=== PATIENT | female | born 1960 | race Caucasian/White ===

== ENCOUNTER 2016-09-03 02:12 | Observation (INO) | payer BC, OTHER ==
[2016-09-03] MEDS ORDERED: IPRATROPIUM-ALBUTEROL 3 ML NEB INHALATION STA (02:47)
--- NOTE | 2016-09-03 02:50 | ED ---
SOB HPI - General Source: patient, RN notes reviewed Mode of arrival: wheelchair Limitations: no limitations <Marsha Brown - Last Filed: 09/03/16 05:23> <Clarence Bragg - Last Filed: 09/03/16 06:46> - General Chief Complaint: Shortness of Breath Stated Complaint: [place], chest pain Time Seen by Provider: 09/03/16 02:28 - History of Present Illness Initial Comments: Patient is a 55-year-old female presents to the emergency room for evaluation of shortness of breath. Patient states that she just started a new job is very active. Patient states that she is overweight so a lot of activity causes her to become tired easily. Patient states over the past 2 days she notices that she felt very short of breath while walking only a few moments steps. Patient states she's had a productive cough for the past 2 days. Patient states the cough and shortness of breath got worse throughout the day. Patient states she is also having midsternal chest pain that hurts worse when she coughs. Patient denies any cardiac history. Patient states September 2015 [facility] where she received blood work, EKG and stress test and everything came back normal. Patient states the only thing that they notices was a "leaky valve" on the echocardiogram. Patient states she has a history of high blood pressure. Patient states her chest feels tight. Patient denies fevers or chills. Patient denies ear pain. Patient states she has throat pain every time she coughs. Patient's denies nausea or vomiting, abdominal pain, diarrhea or constipation. Patient denies smoking. (Marsha Brown) - Related Data Home Medications Medication Instructions Recorded Confirmed Furosemide [Lasix] 20 mg PO DAILY 03/13/16 09/03/16 Ibuprofen [Motrin] 800 mg PO Q8HR PRN 03/13/16 09/03/16 Losartan [Cozaar] 50 mg PO DAILY 03/13/16 09/03/16 Montelukast [Singulair] 10 mg PO DAILY 03/13/16 09/03/16 Multivitamins, Thera [Multivitamin] 1 tab PO DAILY 03/13/16 09/03/16 Sertraline [Zoloft] 50 mg PO DAILY 03/13/16 09/03/16 Allergies Allergy/AdvReac Type Severity Reaction Status Date / Time pilocarpine HCl Allergy Itching Verified 03/17/16 07:05 [From Salagen] bupivacaine HCl AdvReac Swelling Verified 03/17/16 07:05 [From Marcaine] AFTER INJECTION IN KNEE Review of Systems ROS Other: All systems not noted in ROS Statement are negative. <Marsha Brown - Last Filed: 09/03/16 05:23> ROS Other: All systems not noted in ROS Statement are negative. <Clarence Bragg - Last Filed: 09/03/16 06:46> ROS Statement: Those systems with pertinent positive or pertinent negative responses have been documented in the HPI. Past Medical History Past Medical History: GERD/Reflux, Hearing Disorder / Deafness, Hypertension, Musculoskeletal Disorder, Skin Disorder Additional Past Medical History / Comment(s): STRESS TEST 09/2015 - VALVE HAS SL LEAKAGE. SEASONAL ALLERGY. TINNITUS. SL OA. FOLICULITIS SCALP; ATHLETES'S FOOT; LIPOMA RT UPPER BACK. History of Any Multi-Drug Resistant Organisms: None Reported Past Surgical History: Cholecystectomy, Tonsillectomy Additional Past Surgical History / Comment(s): RT SHOULDER IMPINGEMENT REPAIR, EXC PART CLAVICLE. Past Anesthesia/Blood Transfusion Reactions: No Reported Reaction Past Psychological History: No Psychological Hx Reported Smoking Status: Never smoker Past Alcohol Use History: Rare Past Drug Use History: None Reported - Past Family History Mother Family Medical History: Cancer <Marsha Brown - Last Filed: 09/03/16 05:23> General Exam Limitations: no limitations General appearance: alert, in no apparent distress Head exam: Present: atraumatic, normocephalic, normal inspection Eye exam: Present: normal appearance ENT exam: Present: normal exam Neck exam: Present: normal inspection Respiratory exam: Present: normal lung sounds bilaterally. Absent: respiratory distress Cardiovascular Exam: Present: regular rate, normal rhythm, normal heart sounds Extremities exam: Present: normal inspection Back exam: Present: normal inspection Neurological exam: Present: alert, oriented X3, CN II-XII intact, normal gait Psychiatric exam: Present: normal affect, normal mood Skin exam: Present: warm, dry, intact, normal color. Absent: rash <Marsha Brown - Last Filed: 09/03/16 05:23> <Clarence Bragg - Last Filed: 09/03/16 06:46> - General Exam Comments Initial Comments: Laying in exam room, no acute distress. (Marsha Brown) Medical Decision Making - Lab Data Result diagrams: 09/03/16 02:35 09/03/16 02:35 <Marsha Brown - Last Filed: 09/03/16 05:23> - Lab Data Result diagrams: 09/03/16 02:35 09/03/16 02:35 <Clarence Bragg - Last Filed: 09/03/16 06:46> - Lab Data Lab Results 09/03/16 09/03/16 09/03/16 Range/Units 02:35 02:35 02:35 WBC 9.2 (3.8-10.6) k/uL RBC 4.47 (3.80-5.40) m/uL Hgb 13.1 (11.4-16.0) gm/dL Hct 39.0 (34.0-46.0) % MCV 87.4 (80.0-100.0) fL MCH 29.3 (25.0-35.0) pg MCHC 33.5 (31.0-37.0) g/dL RDW 13.8 (11.5-15.5) % Plt Count 203 (150-450) k/uL Neutrophils % 71 % Lymphocytes % 20 % Monocytes % 5 % Eosinophils % 1 % Basophils % 0 % Neutrophils # 6.6 (1.3-7.7) k/uL Lymphocytes # 1.8 (1.0-4.8) k/uL Monocytes # 0.5 (0-1.0) k/uL Eosinophils # 0.1 (0-0.7) k/uL Basophils # 0.0 (0-0.2) k/uL PT (9.0-12.0) sec INR (<1.1) APTT (22.0-30.0) sec D-Dimer (<0.60) mg/L FEU Sodium 142 (137-145) mmol/L Potassium 3.9 (3.5-5.1) mmol/L Chloride 107 (98-107) mmol/L Carbon Dioxide 27 (22-30) mmol/L Anion Gap 8 mmol/L BUN 18 H (7-17) mg/dL Creatinine 0.70 (0.52-1.04) mg/dL Est GFR (MDRD) Af Amer >60 (>60 ml/min/1.73 sqM) Est GFR (MDRD) Non-Af >60 (>60 ml/min/1.73 sqM) Glucose 104 H (74-99) mg/dL Calcium 9.7 (8.4-10.2) mg/dL Total Bilirubin 0.6 (0.2-1.3) mg/dL AST 26 (14-36) U/L ALT 36 (9-52) U/L Alkaline Phosphatase 71 (38-126) U/L Total Creatine Kinase 192 H (30-135) U/L CK-MB (CK-2) 1.8 (0.0-2.4) ng/mL CK-MB (CK-2) Rel Index 0.9 Troponin I <0.012 (0.000-0.034) ng/mL NT-Pro-B Natriuret Pep pg/mL Total Protein 6.8 (6.3-8.2) g/dL Albumin 3.9 (3.5-5.0) g/dL Influenza Type A RNA (Not Detectd) Influenza Type B (PCR) (Not Detectd) 09/03/16 09/03/16 09/03/16 Range/Units 02:35 02:35 02:35 WBC (3.8-10.6) k/uL RBC (3.80-5.40) m/uL Hgb (11.4-16.0) gm/dL Hct (34.0-46.0) % MCV (80.0-100.0) fL MCH (25.0-35.0) pg MCHC (31.0-37.0) g/dL RDW (11.5-15.5) % Plt Count (150-450) k/uL Neutrophils % % Lymphocytes % % Monocytes % % Eosinophils % % Basophils % % Neutrophils # (1.3-7.7) k/uL Lymphocytes # (1.0-4.8) k/uL Monocytes # (0-1.0) k/uL Eosinophils # (0-0.7) k/uL Basophils # (0-0.2) k/uL PT 10.5 (9.0-12.0) sec INR 1.0 (<1.1) APTT 23.2 (22.0-30.0) sec D-Dimer 0.79 H (<0.60) mg/L FEU Sodium (137-145) mmol/L Potassium (3.5-5.1) mmol/L Chloride (98-107) mmol/L Carbon Dioxide (22-30) mmol/L Anion Gap mmol/L BUN (7-17) mg/dL Creatinine (0.52-1.04) mg/dL Est GFR (MDRD) Af Amer (>60 ml/min/1.73 sqM) Est GFR (MDRD) Non-Af (>60 ml/min/1.73 sqM) Glucose (74-99) mg/dL Calcium (8.4-10.2) mg/dL Total Bilirubin (0.2-1.3) mg/dL AST (14-36) U/L ALT (9-52) U/L Alkaline Phosphatase (38-126) U/L Total Creatine Kinase (30-135) U/L CK-MB (CK-2) (0.0-2.4) ng/mL CK-MB (CK-2) Rel Index Troponin I (0.000-0.034) ng/mL NT-Pro-B Natriuret Pep 96 pg/mL Total Protein (6.3-8.2) g/dL Albumin (3.5-5.0) g/dL Influenza Type A RNA Not Detected (Not Detectd) Influenza Type B (PCR) Not Detected (Not Detectd) Disposition <Marsha Brown - Last Filed: 09/03/16 05:23> <Clarence Bragg - Last Filed: 09/03/16 06:46> Clinical Impression: Chest pain Disposition: ADMITTED IP TO THIS HOSP Condition: Fair Referrals: Dawood Alejandro DO [Primary Care Provider] - 1-2 days
[2016-09-03 02:51] LABS: Basophils % (A) 0 %; CH 29.2; CHCM 33.6; Eosinophils # (A) 0.1 k/uL (0-0.7); Eosinophils % (A) 1 %; HDW 2.67; HGB 13.1 gm/dL (11.4-16.0); Luc # (Auto) 0.18; Luc % (Auto) 2; Lymphocytes # (A) 1.8 k/uL (1.0-4.8); Lymphocytes % (A) 20 %; MCH 29.3 pg (25.0-35.0); MCHC 33.5 g/dL (31.0-37.0); MCV 87.4 fL (80.0-100.0); Mean Platelet Volume 7.1; Monocytes # (A) 0.5 k/uL (0-1.0); Monocytes % (A) 5 %; Neutrophils # (A) 6.6 k/uL (1.3-7.7); Neutrophils % (A) 71 %; RBC 4.47 m/uL (3.80-5.40); RDW 13.8 % (11.5-15.5); WBC 9.2 k/uL (3.8-10.6); WBC (Perox) 9.14
[2016-09-03 03:00] LABS: ALT 36 U/L (9-52); AST 26 U/L (14-36); Alkaline Phosphatase 71 U/L (38-126); Anion Gap 8 mmol/L; Blood Urea Nitrogen 18 mg/dL (7-17); Calcium 9.7 mg/dL (8.4-10.2); Carbon Dioxide 27 mmol/L (22-30); Chloride 107 mmol/L (98-107); Glucose 104 mg/dL (74-99); Non-African American GFR(MDRD) >60 (>60 ml/min/1.73 sqM); Potassium 3.9 mmol/L (3.5-5.1); Sodium 142 mmol/L (137-145); Total Bilirubin 0.6 mg/dL (0.2-1.3); Total Protein 6.8 g/dL (6.3-8.2)
[2016-09-03 03:08] LABS: Partial Thromboplastin Time 23.2 sec (22.0-30.0); Prothrombin Time 10.5 sec (9.0-12.0)
--- NOTE | 2016-09-03 03:09 | XR ---
EXAM: XR Chest, 2 Views. CLINICAL HISTORY: Reason: difficulty breathing TECHNIQUE: Frontal and lateral views of the chest. COMPARISON: No relevant prior studies available. FINDINGS: Lungs: Unremarkable. No consolidation. Pleural spaces: Unremarkable. No pneumothorax. Heart: Borderline cardiomegaly. Mediastinum: Unremarkable. Bones: Mild degenerative changes are present throughout. No acute fracture. Upper abdomen: Upper abdominal clips seen on the lateral view may be from prior cholecystectomy. IMPRESSION: No acute findings.
[2016-09-03 03:16] LABS: Creatine Kinase 192 U/L (30-135)
[2016-09-03 03:30] LABS: Creatine Kinase MB 1.8 ng/mL (0.0-2.4); Troponin I <0.012 ng/mL (0.000-0.034)
[2016-09-03] MEDS ORDERED: RX INFO: IV CONTRAST WAS GIVEN 1 EACH MISC MISCELLANE PRN (03:39)
--- NOTE | 2016-09-03 04:31 | CT ---
EXAM: CT Angiography Chest With Intravenous Contrast. CLINICAL HISTORY: Reason: Pain TECHNIQUE: Axial computed tomographic angiography images of the chest with intravenous contrast using pulmonary embolism protocol. CTDI is 213.9 mGy and DLP is 1317 mGy-cm MIP reconstructed images were created and reviewed. COMPARISON: Earlier chest radiographs of the same evening. FINDINGS: Pulmonary arteries: Unremarkable. No pulmonary embolism. Aorta: No acute findings. No thoracic aortic aneurysm. Lungs: Unremarkable. No mass. No consolidation. Pleural spaces: Unremarkable. No significant effusion. No pneumothorax. Heart: There is borderline cardiomegaly. No significant pericardial effusion. No evidence of RV dysfunction. Mediastinum: A small hiatal hernia is present. Bones: Multilevel degenerative changes are present throughout. No acute fracture. Lymph nodes: Unremarkable. No enlarged lymph nodes. IMPRESSION: No acute findings.
[2016-09-03] MEDS ORDERED: NITROGLYCERIN SL TABS 0.4 MG TAB SUBLINGUAL PRN (06:26)
[2016-09-03] MEDS ORDERED: IBUPROFEN 800 MG TAB PO PRN (06:27)
[2016-09-03 08:49] LABS: Creatine Kinase 164 U/L (30-135)
[2016-09-03 09:00] LABS: Creatine Kinase MB 1.5 ng/mL (0.0-2.4); Troponin I <0.012 ng/mL (0.000-0.034)
[2016-09-03] MEDS ORDERED: FUROSEMIDE 20 MG TAB PO SCH (09:00)
[2016-09-03] MEDS ORDERED: MONTELUKAST 10 MG TAB PO SCH (09:00)
[2016-09-03] MEDS ORDERED: LOSARTAN 50 MG TAB PO SCH (09:00)
[2016-09-03] MEDS ORDERED: SERTRALINE 50 MG TAB PO SCH (09:00)
--- NOTE | 2016-09-03 09:24 | P.CRDCN ---
History of Present Illness Consult date: 09/03/16 Requesting physician: Dawood Alejandro Consult reason: chest pain Chief complaint: Chest pain and shortness of breath History of present illness: This is a 55-year-old female with history of hypertension, morbid obesity, who presents to the hospital with symptoms of shortness of breath progressively worsening over the past couple of days, associated midsternal chest pressure. According to the patient, she initially thought she may have a bronchitis, she's been having a cough, productive, clear sputum. She states that for the past couple of days she has noticed an increase in shortness of breath, she's also felt more tired and weak than usual, she developed an episode of midsternal chest pressure, became concerned and came to the emergency room for further evaluation. According to the patient, the pain worsens with cough. Chest x-ray does not reveal any acute findings. CT of the chest does not reveal any acute findings. Negative for pulmonary embolism. EKG currently unavailable. rebeamer reveals a normal sinus rhythm with no ectopy currently. Laboratory data, WBC 9.2, hemoglobin 13.1, platelet count 203. D-dimer 0.79. Troponins negative 2. BNP level 96, influenza A and B-. Blood pressure on arrival 195/80, heart rate in the 70s, 95% on room air. Blood pressure this morning 155/70. At the time of my examination this morning, patient currently has no chest pain. Mild cough. According to the patient, she states she has seen Dr. Murillo in the office in September of last year had a stress test performed at that time. Patient also underwent a coronary angiogram in 2004 which was reported to be normal. Past Medical History Past Medical History: GERD/Reflux, Hearing Disorder / Deafness, Hypertension, Musculoskeletal Disorder, Skin Disorder Additional Past Medical History / Comment(s): STRESS TEST 09/2015 - VALVE HAS SL LEAKAGE. SEASONAL ALLERGY. TINNITUS. SL OA. FOLICULITIS SCALP; ATHLETES'S FOOT; Sicca auto immune disease-caused dryness throat/esophagus but hasn't been a problem for years, bifid kidney, L knee pain "feels like it wants to give out sometimes", L foot lattened arch and impingement. History of Any Multi-Drug Resistant Organisms: None Reported Past Surgical History: Cholecystectomy, Tonsillectomy Additional Past Surgical History / Comment(s): RT SHOULDER arthroscopy for IMPINGEMENT REPAIR, EXC PART CLAVICLE, lipoma removed from back, cervical lymph gland removal due to abscess. Past Anesthesia/Blood Transfusion Reactions: No Reported Reaction Past Psychological History: No Psychological Hx Reported Additional Psychological History / Comment(s): Pt resides with her spouse and 2 children, one of which is over the age of 18yrs. She is independent. Smoking Status: Never smoker Past Alcohol Use History: Rare Past Drug Use History: None Reported - Past Family History Mother Family Medical History: Cancer Additional Family Medical History / Comment(s): Breast cancer Father Family Medical History: Congestive Heart Failure (CHF), COPD, Osteoarthritis (OA ) Medications and Allergies Home Medications Medication Instructions Recorded Confirmed Type Furosemide [Lasix] 20 mg PO DAILY 03/13/16 09/03/16 History Ibuprofen [Motrin] 800 mg PO Q8HR PRN 03/13/16 09/03/16 History Losartan [Cozaar] 50 mg PO DAILY 03/13/16 09/03/16 History Montelukast [Singulair] 10 mg PO DAILY 03/13/16 09/03/16 History Multivitamins, Thera [Multivitamin] 1 tab PO DAILY 03/13/16 09/03/16 History Sertraline [Zoloft] 50 mg PO DAILY 03/13/16 09/03/16 History Allergies Allergy/AdvReac Type Severity Reaction Status Date / Time pilocarpine HCl Allergy Itching Verified 09/03/16 08:03 [From Salagen] bupivacaine HCl AdvReac Swelling Verified 09/03/16 08:03 [From Marcaine] AFTER INJECTION IN KNEE Physical Exam Vitals: Vital Signs Pulse Resp BP Pulse Ox 09/03/16 06:48 68 18 155/74 97 Intake and Output 09/02/16 09/03/16 09/03/16 22:59 06:59 14:59 Intake Total 20 Balance 20 Intake: Amount of Fluid Infused ( 20 ml) PHYSICAL EXAMINATION: HEENT: Head is atraumatic, normocephalic. Pupils equal, round. Neck is supple. There is no elevated jugular venous pressure. HEART EXAMINATION: Heart S1 and S2 systolic ejection murmur is heard. CHEST EXAMINATION: Lungs are clear to auscultation and precussion. No chest wall tenderness is noted on palpation or with deep breathing. ABDOMEN: Soft, obese, nontender. Bowel sounds are heard. No organomegaly noted. EXTREMITIES: 2+ peripheral pulses with trace evidence of peripheral edema and no calf tenderness noted. NEUROLOGIC patient is awake, alert and oriented -3. . Results 09/03/16 02:35 09/03/16 02:35 Cardiac Enzymes 09/03/16 Range/Units 08:04 CK-MB (CK-2) 1.5 (0.0-2.4) ng/mL Troponin I <0.012 (0.000-0.034) ng/mL Current Medications Generic Name Dose Route Start Last Admin Trade Name Freq PRN Reason Stop Dose Admin Aspirin 325 mg 09/04/16 09:00 Aspirin PO DAILY [facility] Furosemide 20 mg 09/03/16 09:00 Lasix PO DAILY [facility] Ibuprofen 800 mg 09/03/16 06:27 Motrin PO Q8HR PRN Pain Losartan Potassium 50 mg 09/03/16 09:00 Cozaar PO DAILY [facility] Miscellaneous Information 1 each 09/03/16 03:39 09/03/16 03:48 Rx Info: Iv Contrast Was Given MISCELLANE 09/05/16 03:39 1 each DAILY PRN Administration Per Protocol Montelukast Sodium 10 mg 09/03/16 09:00 Singulair PO DAILY [facility] Multivitamins 1 each 09/03/16 12:00 Theragran PO DAILY@1200 [facility] Nitroglycerin 0.4 mg 09/03/16 06:26 Nitrostat SUBLINGUAL Q5M PRN Chest Pain Sertraline HCl 50 mg 09/03/16 09:00 Zoloft PO DAILY [facility] Intake and Output 09/02/16 09/03/16 09/03/16 22:59 06:59 14:59 Intake Total 20 Balance 20 Intake: Amount of Fluid Infused ( 20 ml) EKG Interpretations (text) No EKG available Assessment and Plan Plan: Assessment and plan #1 chest pain, atypical in nature, 2 troponins negative. No EKG available. Cardiac catheterization performed in 2004 normal. Most recent stress test performed in August of last year normal. #2 uncontrolled hypertension #3 morbid obesity Plan We will obtain an echocardiogram with Doppler study. Obtain third troponin value. Obtain EKG. We will also start the patient on Norvasc 5 mg daily for more optimal blood pressure control. Further recommendations to follow. DNP note has been reviewed, I agree with a documented findings and plan of care. Patient was seen and examined.
[2016-09-03] MEDS ORDERED: amLODIPine 5 MG TAB PO SCH (09:30)
[2016-09-03] MEDS ORDERED: DOBUTamine DRIP for NUC MED 500 MG in DEXTROSE/WATER 1 250ML.BAG IV ONE (10:02)
--- NOTE | 2016-09-03 10:04 | P.PN ---
Progress Note - Text EKG performed this morning shows normal sinus rhythm with anterior lateral ST-T wave changes, similar to EKGs performed previously.
[2016-09-03 10:18] VITALS: TEMP 97.5
[2016-09-03] MEDS ORDERED: MULTIVITAMINS, THERA 1 EACH TAB PO SCH (12:00)
--- NOTE | 2016-09-03 12:08 | ECHOS ---
DATE OF SERVICE: 09/03/2016 AGE: 55Y SEX: F HT: 63" WT: 325 lbs. Protocol David: Others: Dobutamine Stress Echo Stage: 3 Dur. of Exercise: 9:00 *Heart Rate Blood Pressure *Rest: ( ) Rest: 138/76 * *Max. Achieved: 145 Maximum BP: 208/38 85% PMHR: 139 100% PMHR: 163 *METS: 10.0 INDICATIONS: Chest pain. MEDICATIONS: Multivitamin, Zoloft, Singulair, Cozaar, Motrin, Lasix. Baseline EKG shows sinus rhythm, normal axis, normal intervals. Patient exercised on David protocol for a total of 9 minutes, achieving 10 METs, 89% of predicted maximal heart rate without chest pain or diagnostic ST-segment depression. Occasional PVCs are noted during the exercise. Baseline echo shows normal left ventricular size, wall motion and systolic function. Post exercise, there is normal hyperdynamic response of all segments of myocardium noted. CONCLUSION: 1. Negative stress test for by EKG criteria. 2. Negative stress echo.
[2016-09-03 13:22] VITALS: BP 154/73; PULSE 96; RESP 18
--- NOTE | 2016-09-03 13:31 | P.HPIM ---
History of Present Illness H&P Date: 09/03/16 Chief Complaint: Chest discomfort This is a medical H&P and discharge summary combined: Patient is a 55-year-old white female with medical history significant for hypertension, GERD, and morbid obesity presenting to the emergency department with complaints of shortness of breath, cough with productive clear sputum, and midsternal chest tightness. Onset of symptoms started 1 day prior to admission. 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 Chest x-ray on admission with no acute findings. Chest CTA with no evidence of pulmonary embolism or lung consolidation. Troponins negative. BNP 96. Patient negative for influenza A and B. Patient did have an elevated blood pressure of 195/80 on admission with blood pressure this morning of 155/70. Patient was admitted to the selective care unit and started on IV heparin will consult requested for cardiology. Patient underwent a dobutamine stress echo and stress test that was negative for ischemia. Patient was started on Norvasc 5 mg during her hospital stay for better control of her blood pressure. Patient was deemed stable for discharge to home with follow-up in the outpatient setting. Past Medical History Past Medical History: GERD/Reflux, Hearing Disorder / Deafness, Hypertension, Musculoskeletal Disorder, Skin Disorder Additional Past Medical History / Comment(s): STRESS TEST 09/2015 - VALVE HAS SL LEAKAGE. SEASONAL ALLERGY. TINNITUS. SL OA. FOLICULITIS SCALP; ATHLETES'S FOOT; Sicca auto immune disease-caused dryness throat/esophagus but hasn't been a problem for years, bifid kidney, L knee pain "feels like it wants to give out sometimes", L foot lattened arch and impingement. History of Any Multi-Drug Resistant Organisms: None Reported Past Surgical History: Cholecystectomy, Tonsillectomy Additional Past Surgical History / Comment(s): RT SHOULDER arthroscopy for IMPINGEMENT REPAIR, EXC PART CLAVICLE, lipoma removed from back, cervical lymph gland removal due to abscess. Past Anesthesia/Blood Transfusion Reactions: No Reported Reaction Past Psychological History: No Psychological Hx Reported Additional Psychological History / Comment(s): Pt resides with her spouse and 2 children, one of which is over the age of 18yrs. She is independent. Smoking Status: Never smoker Past Alcohol Use History: Rare Past Drug Use History: None Reported - Past Family History Mother Family Medical History: Cancer Additional Family Medical History / Comment(s): Breast cancer Father Family Medical History: Congestive Heart Failure (CHF), COPD, Osteoarthritis (OA ) Medications and Allergies Home Medications Medication Instructions Recorded Confirmed Type Furosemide [Lasix] 20 mg PO DAILY 03/13/16 09/03/16 History Ibuprofen [Motrin] 800 mg PO Q8HR PRN 03/13/16 09/03/16 History Losartan [Cozaar] 50 mg PO DAILY 03/13/16 09/03/16 History Montelukast [Singulair] 10 mg PO DAILY 03/13/16 09/03/16 History Multivitamins, Thera [Multivitamin] 1 tab PO DAILY 03/13/16 09/03/16 History Sertraline [Zoloft] 50 mg PO DAILY 03/13/16 09/03/16 History Allergies Allergy/AdvReac Type Severity Reaction Status Date / Time pilocarpine HCl Allergy Itching Verified 09/03/16 08:03 [From Salagen] bupivacaine HCl AdvReac Swelling Verified 09/03/16 08:03 [From Marcaine] AFTER INJECTION IN KNEE Physical Exam Vitals: Vital Signs Temp Pulse Pulse Resp BP BP Pulse Ox 09/03/16 08:15 97.5 F L 67 20 111/55 97 09/03/16 06:48 68 18 155/74 97 Intake and Output 09/02/16 09/03/16 09/03/16 22:59 06:59 14:59 Intake Total 20 Balance 20 Intake: Amount of Fluid Infused ( 20 ml) GENERAL: Pt awake and alert, well-appearing, well-nourished, and in no acute distress. HEAD: Atraumatic, normocephalic. EYES: Pupils equal, round, and reactive to light, extraocular movements intact, sclera anicteric, conjunctiva are normal. ENT: Oropharynx clear without exudates. Moist mucous membranes. NECK:Normal range of motion, supple without lymphadenopathy or JVD. LUNGS: Breath sounds clear to auscultation bilaterally. No wheezes, rales, or rhonchi. Right-sided chest tender on palpation. HEART: Heart S1, S2, no S3 or S4. Regular rate and rhythm. No murmurs, rubs or gallops. ABDOMEN: Soft, morbidly obese, nontender, nondistended, normoactive bowel sounds. No guarding, no rebound. No masses or organomegaly appreciated. EXTREMITIES: 2+ peripheral pulses. No edema, clubbing or cyanosis. No calf tenderness. NEUROLOGICAL: Pt oriented x 3. Cranial nerves II through XII grossly intact. Strength and sensation grossly intact. PSYCH: Normal mood, normal affect. SKIN: Warm, dry, intact. Normal turgor. No rashes or lesions. Results CBC & Chem 7: 09/03/16 02:35 09/03/16 02:35 Labs: Abnormal Lab Results - Last 24 Hours (Table) 09/03/16 Range/Units 08:04 Total Creatine Kinase 164 H (30-135) U/L Chest x-ray: report reviewed CT scan - chest: report reviewed Thrombosis Risk Factor Assmnt - DVT/VTE Prophylaxis DVT/VTE Prophylaxis: Pharmacologic Prophylaxis ordered - Choose All That Apply Any of the Below Risk Factors Present?: Yes Each Factor Represents 1 point: Age 41-60 years, Obesity (BMI >25) Other Risk Factors: No Other congenital or acquired thrombophilia - If yes, enter type in comment: No Thrombosis Risk Factor Assessment Total Risk Factor Score: 2 Thrombosis Risk Factor Assessment Level: Low Risk Assessment and Plan Plan: Impression: 1. Chest discomfort, present on admission, suspect secondary to costochondritis. Cardiac workup negative. 2. Hypertensive urgency, present on admission, resolved. 3. GERD. 4. History of hypertension. 5. Cough and congestion, present on arrival, suspect secondary to upper respiratory infection, viral. 6. Depression, stable. Plan: Cardiology has seen and evaluated patient. Cardiac workup negative including dobutamine stress test. Norvasc was added for better blood pressure control. All medications have been reviewed and resumed as appropriate. Motrin was added for pain control. Patient is deemed stable for discharge with close follow-up in the outpatient setting. Discharge diagnoses: 1. Chest discomfort, present on admission, suspect secondary to costochondritis. 2. Hypertensive urgency, present on admission, resolved. 3. GERD. 4. Hypertension. 5. Cough and congestion, present on arrival, suspect secondary to upper respiratory infection, viral. 6. Depression, stable. The above impression and plan have been discussed and directed by Dr. Alejandro. Tricia ELIZABETH acting as scribe for Dr. Alejandro.
[2016-09-04] MEDS ORDERED: ASPIRIN 325 MG TAB PO SCH (09:00)
--- NOTE | 2016-09-08 16:04 | ECHOF ---
Referral Reason:chest pain MEASUREMENTS -------- HEIGHT: 160.0 cm WEIGHT: 147.4 kg BP: IVSd: 1.0 cm (0.6 - 1.1) LVIDd: 4.4 cm (3.9 - 5.3) LVPWd: 1.4 cm (0.6 - 1.1) IVSs: 1.7 cm LVIDs: 2.6 cm LVPWs: 2.0 cm Ao Diam: 3.4 cm (2.0 - 3.7) AV Cusp: 2.3 cm (1.5 - 2.6) LA Diam: 3.6 cm (2.7 - 3.8) MV EXCURSION: 16.009 mm (> 18.000) MV EF SLOPE: 41 mm/s (70 - 150) EPSS: 0.4 cm MV E Casey: 0.94 m/s MV DecT: 142 ms MV A Casey: 1.01 m/s MV E/A Ratio: 0.93 RAP: 5.00 mmHg RVSP: 10.41 mmHg FINDINGS -------- Sinus rhythm. This was a technically adequate study. There is mild concentric left ventricular hypertrophy. Overall left ventricular systolic function is normal with, an EF between 55 - 60 %. The right ventricle is normal in size and function. The left atrium is normal in size. The right atrium is normal in size. The aortic valve is trileaflet, and appears structurally normal. No aortic stenosis or regurgitation. The mitral valve leaflets are mildly thickened. Mild mitral regurgitation is present. Mild tricuspid regurgitation present. The right ventricular systolic pressure, as measured by Doppler, is 10.41mmHg. Pulmonic valve appears structurally normal. The aortic root size is normal. The pericardium is normal. CONCLUSIONS -------- 1. Sinus rhythm. 2. Mild mitral regurgitation is present. 3. Mild tricuspid regurgitation present. 4. The right ventricular systolic pressure, as measured by Doppler, is 10.41mmHg. 5. Pulmonic valve appears structurally normal. 6. The aortic root size is normal. 7. The pericardium is normal. 8. This was a technically adequate study. 9. There is mild concentric left ventricular hypertrophy. 10. Overall left ventricular systolic function is normal with, an EF between 55 - 60 %. 11. The right ventricle is normal in size and function. 12. The left atrium is normal in size. 13. The right atrium is normal in size. 14. The aortic valve is trileaflet, and appears structurally normal. No aortic stenosis or regurgitation. 15. The mitral valve leaflets are mildly thickened. COMBINE OPERATOR: Sasha King RDCS
== END 2016-09-03 14:03 | disposition home or self-care (01) ==
LOC: EC 02:12 → 6SEL 06:26
PROVIDERS: ADMIT Family Medicine; ATTEND Family Medicine
DX: R07.89 Other chest pain (principal); I16.0 Hypertensive urgency; I10 Essential (primary) hypertension; K21.9 Gastro-esophageal reflux disease without esophagitis; R05 Cough; R06.02 Shortness of breath; R06.00 Dyspnea, unspecified; R09.89 Other specified symptoms and signs involving the circulatory and respiratory systems; F32.9 Major depressive disorder, single episode, unspecified; Z68.43 Body mass index [BMI] 50.0-59.9, adult; E66.01 Morbid (severe) obesity due to excess calories; Z79.899 Other long term (current) drug therapy; Z88.8 Allergy status to other drugs, medicaments and biological substances; Z88.4 Allergy status to anesthetic agent; H91.90 Unspecified hearing loss, unspecified ear; J30.2 Other seasonal allergic rhinitis; Z80.3 Family history of malignant neoplasm of breast; Z82.5 Family history of asthma and other chronic lower respiratory diseases; Z82.49 Family history of ischemic heart disease and other diseases of the circulatory system
CPT/HCPCS: 99285; 36415; 94640; 93005; 93017; 93306; 93350; 85379; 83880; 80053; 82550; 82553; 84484; 85025; 85610; 85730; 87502; 71020; 71275; G0378; J1250; Q9967

== ENCOUNTER 2018-01-11 12:43 | Observation (INO) | payer BC ==
[2018-01-05 08:36] VITALS: BMI 55.4
[~2018-01-11 12:43] MED LIST: ONDANSETRON 4 MG/2 ML VIAL IVP ONE; Pre Op ABX Message 1 EACH MISC MISCELLANE ONE
[2018-01-11] MEDS ORDERED: MIDAZOLAM 2 MG/2 ML VIAL ONE ×2 (13:45→14:31)
[2018-01-11] MEDS: LACTATED RINGERS 1,000 ML IV SCH ×2 (13:47→22:51)
[2018-01-11] MEDS ORDERED: LIDOCAINE 1% 20 ML VIAL (10MG/ML) FOR IV START INTRADERMA ONE (13:48)
[2018-01-11] MEDS ORDERED: SUCCINYLCHOLINE CHLORIDE VIAL 200 MG/10 ML VIAL IV ONE (14:31)
[2018-01-11] MEDS ORDERED: NEOSTIGMINE 1 MG/ML 10 ML VIAL ONE (14:31)
[2018-01-11] MEDS ORDERED: ROCURONIUM BROMIDE 10 MG/ML 10 ML VIAL IV ONE (14:31)
[2018-01-11] MEDS ORDERED: PHENYLEPHRINE-0.9% NACL SYG 1 MG/10 ML SYRINGE ONE (14:31)
[2018-01-11] MEDS ORDERED: HYDROmorphone (PF) 1 MG/ML ONE (14:31)
[2018-01-11] MEDS ORDERED: LIDOCAINE 1% INJ 10MG/ML (20 ML MDV) ONE (14:31)
[2018-01-11] MEDS ORDERED: PROPOFOL 10 MG/ML 20 ML VIAL IV ONE (14:31)
[2018-01-11] MEDS ORDERED: ROPIVACAINE 5 MG/ML 30 ML VIAL ONE (14:31)
[2018-01-11] MEDS ORDERED: ePHEDrine SULFATE/0.9% NACL/PF 50 MG/5 ML SYRINGE IV ONE (14:31)
[2018-01-11] MEDS ORDERED: GLYCOPYRROLATE 0.2 MG/ML 2 ML VIAL ONE (14:31)
[2018-01-11] MEDS ORDERED: fentaNYL (PF) 50 MCG/ML 2 ML AMP ONE (14:31)
[2018-01-11] MEDS ORDERED: ceFAZolin 1,000 MG VIAL IVPB ONE (14:50)
[2018-01-11] MEDS ORDERED: LACTATED RINGERS 1,000 ML IV ONE ×3 (15:30→19:03)
[2018-01-11] MEDS ORDERED: BISACODYL 10 MG SUPP RECTAL PRN (18:25)
[2018-01-11] MEDS ORDERED: HYDROmorphone 0.5 MG/0.5 ML SYRINGE IVP PRN (18:25)
[2018-01-11] MEDS ORDERED: NALOXONE 0.4 MG/ML 1 ML VIAL IV PRN (18:25)
[2018-01-11] MEDS ORDERED: ONDANSETRON 4 MG/2 ML VIAL IVP PRN (18:25)
[2018-01-11] MEDS ORDERED: HYDROcodone/APAP 5-325MG 1 EACH TAB PO PRN (18:25)
[2018-01-11] MEDS ORDERED: MAGNESIUM HYDROXIDE 2,400 MG/10 ML CUP PO PRN (18:25)
--- NOTE | 2018-01-11 18:44 | P.OP ---
Date of Procedure: 01/11/18 Preoperative Diagnosis: 1. 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 Achilles tendon contracture 3. BMI of 55.4 Postoperative Diagnosis: Same Procedure(s) Performed: 1. Right triple arthrodesis 2. Right percutaneous tendo Achilles lengthening Anesthesia: ABIOLA, regional Surgeon: Kyaw Dietz Estimated Blood Loss (ml): 150 IV fluids (ml): 1,700 Pathology: none sent Condition: stable Disposition: PACU Indications for Procedure: The patient is a 57-year-old female with a medical history significant for extreme morbid obesity with a BMI of 55.4 who presented to my office with an adult acquired flat foot deformity. She was initially managed nonsurgically with activity modification, orthotics, anti-inflammatories, bracing, and therapy but continued to have symptoms and requested surgery. Clinically she had a significant flatfoot deformity and symptomatically arthritis in the calcaneocuboid joint. Due to her weight and age I recommended a triple arthrodesis. We discussed that most deformities can be corrected now with a double arthrodesis but due to the symptomatic nature of the arthritis in her calcaneocuboid joint I recommended incorporating this into the fusion mass. I also recommended performing a percutaneous tendo Achilles lengthening to help correct her deformity. We discussed the potential risks and complications of surgery including but not limited to risk of anesthesia, risk of superficial infection, risk of deep infection, risk of delayed wound healing, risk of superficial wound necrosis, risk of deep wound necrosis, risk of damage to local blood vessels or nerves, risk of nonunion of the fusion site, risk of malunion of the fusion site, risk of under correction of deformity, risk of overcorrection of the deformity, risk of symptomatically hardware, risk of need for further surgery, risk of chronic pain, risk of chronic swelling, risk of generalized to satisfaction surgery, risk of need for orthotic, risk of need for race, risk of DVT, risk of PE, and possibly loss of life or limb. The patient voiced that while these are the most common complications other complications are possible. The patient also voiced and acknowledged her increased risk of having a complication due to her BMI 55.4. She provided her verbal and written consent to go forward with surgery. Operative Findings: The patient's BMI of 55.4 resulted in increased complexity of the case due to difficulty in positioning the leg for proper imaging and placement of hardware as well as resulting in a venous tourniquet. Description of Procedure: The patient was identified in preoperative holding and the correct right leg was marked with my initials. I reviewed the consent form with the patient and all of her questions were answered. The patient was then given a popliteal and saphenous nerve block by anesthesia. She was brought to the operating room and a general anesthetic and preoperative antibiotics were administered on a standard or table. A tourniquet was applied to the proximal aspect of the right leg. Her left leg was secured to the table with foam and tape. The right leg was then prepped and draped in the standard sterile fashion. Prior to starting surgery timeout was performed identifying the correct patient, operative extremity, and procedure. The leg was then elevated, exsanguinated with an Esmarch bandage, and the tourniquet was inflated to 300 mmHg. I began by performing a triple hemisection tendo Achilles lengthening. Stab incisions were made a 2 cm intervals above the Achilles insertion. The first incision was made and the medial half of the Achilles tendon was sharply released. A second stab incision was made 2 cm proximal to this and the lateral half of the Achilles tendon was sharply released. A third incision was made 2 cm proximal to this and the medial half of the Achilles tendon was sharply released. A gentle dorsiflexion force was applied to the ankle and there is a palpable and audible pop and an increase in dorsiflexion. The Achilles tendon was still palpably intact. I then outlined incisions with a skin marker for a medial and lateral approach to the hindfoot. The lateral incision was marked out from the tip of the fibula distally in line with the fourth toe. The medial incision was marked out from the tip of the medial malleolus to the medial cuneiform centered directly over the medial column. The skin incision was made laterally with a 15 blade scalpel and dissection was carried carefully through the subcutaneous tissue. The fascia over the EDB was incised and the origin of the EDB was sharply elevated off of the anterior process of the calcaneus. The peroneal tendons were identified and retracted plantarly. The joint capsule over the subtalar joint and calcaneocuboid joint were then opened. K wires were placed a distractor was used to gain access to both the subtalar and calcaneocuboid joint. Using a combination of osteotomes and curettes all of the remaining articular cartilage was removed from the posterior and middle facet of the subtalar joint. The wound was copiously irrigated and all remaining cartilage was debrided. A 2.0 mm drill bit was used to perforate the subchondral bone to facilitate fusion. A Sunil was used for contour a large osteophyte off of the anterior process of the calcaneus at the calcaneal cuboid joint. The calcaneocuboid joint appeared markedly arthritic. The articular cartilage was removed and then the exposed subchondral bone was perforated with a 2.0 mm drill bit. The lateral portion the talonavicular joint was also exposed and articular cartilage was removed. Attention was then directed medial. Skin incision was made a 15 blade scalpel. Dissection was carried down carefully through subcu tissues tissue with tenotomy scissors. The interval between the anterior tibial tendon and posterior tibial tendon was identified. The capsule of the talonavicular joint was opened. K wires were placed and a distractor was used to gain access to the medial two thirds the talonavicular joint. Using a curved osteotome and curette all of the cartilage from the talonavicular joint was sharply removed. The exposed bone was perforated with a 2.0 mm drill bit to help facilitate fusion. At this point all of the joints were exposed and all of the cartilage had been removed. A mixture of crushed cancellus allograft and augment was used help with the fusion mass. All 3 joints were packed with this mixture. Once all the joints were prepared and packed with bone graft and augment the position of the joints were held in a reduced position and held with K wires. I placed the heel in neutral and placed K wires for cannulated 7.0 screws through the plantar aspect of the heel up into the talar body and neck. The more medial screw was placed at the head neck junction and the more lateral screw was placed into the talar body. The position of the K wires was checked with a lateral view of the heel, and axial heel view, and a mortise view of the ankle to make sure that the screws were within bone and extra-articular at the level of the ankle. The K wires were overdrilled with a cannulated drill bit up to the level of the joint and a countersink was used. Partially threaded 7.0 mm screws were then placed both getting an excellent bite and generating compression across the subtalar joint. Attention was then turned to the talonavicular joint. The talonavicular joint was held in a reduced position and a K wire was placed from the navicular tuberosity up into the talar body. A drill bit was used to drill over the navicular up to the joint but not across it. A countersink was used. A partially threaded 5.5 mm cannulated screw was placed across the talonavicular joint getting excellent compression. A second 4.5 mm screw was placed as a derotation screw. Attention was then turned to the calcaneocuboid joint. A claw plate was placed directly over the joint with 2 screws holes in the anterior process the calcaneus and 2 screws in the cuboid. 3.5 mm locking screws were placed. The compression device was placed and gentle compression was applied across the joint. At this point I clinically evaluated the foot. The heel appeared to be in neutral. There was mild supination of the forefoot but not enough that I felt it needed a plantarflexion osteotomy or fusion of the first ray. The position of the joints and hardware was then verified with fluoroscopy and felt to be adequate in all views. The wounds were then carefully irrigated to prevent washing away any of the augment substance. The fascial deep layer was closed with a running 0 Vicryl over both wounds. The deep subcu was reapproximated using 2-0 Vicryl. The skin was closed with 3-0 nylon horizontal mattress stitches. The stab incisions over the heel were closed with 3-0 nylon. I verified that all instrument, sponge, and sharp counts were correct. The tourniquet was let down for total tourniquet time of 120 minutes. A sterile dressing consisting of Betadine Adaptic, 4 x 4, and web roll was applied. The drapes were taken down and well-padded bulky Harrison splint was placed with the ankle at neutral. The patient was then awoken from her anesthetic, transferred from the or table to a gurney, and brought to PACU having found the procedure well. Plan: The patient is going to be admitted overnight for IV antibiotics, pain control, and an internal medicine consult. She'll need physical therapy for gait training. She'll be treated with DVT prophylaxis on Lovenox while in- house he'll be discharged home on aspirin. The patient can discharge home when her pain is controlled and she passes physical therapy.
[2018-01-11] MEDS: HYDROmorphone 0.5 MG/0.5 ML SYRINGE IVP PRN ×5 (18:45→22:51)
[2018-01-11] MEDS: SENNOSIDES-DOCUSATE SODIUM 1 EACH TAB PO SCH (22:54)
[2018-01-12] MEDS: HYDROmorphone 0.5 MG/0.5 ML SYRINGE IVP PRN ×4 (01:47→17:32)
[2018-01-12] MEDS: LACTATED RINGERS 1,000 ML IV SCH ×4 (04:39→19:50)
[2018-01-12] MEDS: HYDROcodone/APAP 5-325MG 1 EACH TAB PO PRN ×2 (05:41→11:40)
[2018-01-12 07:10] LABS: Basophils % (A) 0 %; Eosinophils # (A) 0.1 k/uL (0-0.7); Eosinophils % (A) 1 %; HCT 34.2 % (34.0-46.0); HGB 11.3 gm/dL (11.4-16.0); Lymphocytes # (A) 1.3 k/uL (1.0-4.8); Lymphocytes % (A) 10 %; MCH 29.3 pg (25.0-35.0); MCV 88.8 fL (80.0-100.0); Mean Platelet Volume 6.8; Monocytes # (A) 0.7 k/uL (0-1.0); Monocytes % (A) 6 %; Neutrophils # (A) 10.3 k/uL (1.3-7.7); Neutrophils % (A) 82 %; Platelet Count 233 k/uL (150-450); RBC 3.85 m/uL (3.80-5.40); RDW 13.8 % (11.5-15.5); WBC 12.6 k/uL (3.8-10.6)
--- NOTE | 2018-01-12 08:01 | FL ---
Fluoroscopy HISTORY: Ankle fusion 1 minute 14 seconds fluoroscopy time supplied to the referring clinician. 5 intraoperative C-arm muriel ges document the procedure. See dictated report from orthopedic surgery.
--- NOTE | 2018-01-12 08:09 | XR ---
Limited right ankle HISTORY: Subtalar fusion 5 intraoperative C-arm images document the procedure.
[2018-01-12] MEDS: ENOXAPARIN 40 MG/0.4 ML SYRINGE SQ SCH (09:20)
[2018-01-12] MEDS ORDERED: HYDROcodone/APAP 7.5-325MG 1 EACH TAB PO PRN (16:52)
--- NOTE | 2018-01-12 16:52 | P.PN ---
Subjective Progress Note Date: 01/12/18 Principal diagnosis: S/P 1. Right triple arthrodesis, 2. Right percutaneous tendo Achilles lengthening Patient is seen at bedside this morning. She is postop day #1 from Right foot triple arthrodesis and Right percutaneous tendo Achilles lengthening. She has pain at the surgical site as expected but denies any new complaints. She denies numbness, tingling or calf pain. Review of systems is negative for fever , chills, chest pain, shortness of breath or other. Objective - Vital Signs Vital signs: Vital Signs Temp 98.3 F 01/12/18 11:26 Pulse 83 01/12/18 11:26 Resp 20 01/12/18 11:26 BP 122/66 01/12/18 11:26 Pulse Ox 94 L 01/12/18 11:26 Intake & Output 01/11/18 01/12/18 01/12/18 18:59 06:59 18:59 Intake Total 1900 1080 900 Output Total 814 569 5849 Balance 1400 980 -375 Intake: IV 1900 500 Intake, IV Titration 700 Amount Lactated Ringers 1,000 ml 700 @ 0 mls/hr IV .[employer] Rx#:[id number] Oral 580 200 Output: Urine 546 640 1401 Estimated Blood Loss 150 Other: Voiding Method Indwelling Catheter - Exam Inspection reveals well padded splint intact at the right lower extremity. There is no evidence of active bleeding or drainage. Neurovascular status is intact throughout the lower extremity with motor and sensation fully intact. Left Calf is soft and nontender. 2+ dorsalis pedis pulse and less than 2 second cap refill is present on Left. Less than 2 sec cap refill on right in all digits. She is able to wiggle all toes. - Constitutional General appearance: Present: no acute distress - Psychiatric Psychiatric: Present: A&O x's 3, appropriate affect, intact judgment & insight - Labs CBC & Chem 7: 01/12/18 06:44 Labs: Abnormal Lab Results - Last 24 Hours (Table) 01/12/18 01/12/18 Range/Units 06:44 06:44 WBC 12.6 H (3.8-10.6) k/uL Hgb 11.3 L (11.4-16.0) gm/dL Neutrophils # 10.3 H (1.3-7.7) k/uL Vitamin D 25-Hydroxy 18.3 L (30.0-100.0) ng/mL Assessment and Plan (1) Flat foot [pes planus] (acquired), right foot Narrative/Plan: She will continue with routine postop orthopedic protocol including pain management, wound care, physical therapy, DVT prophylaxis and medical management. Expect that she will discharge to home tomorrow. Current Visit: Yes Status: Acute Priority: Medium Code(s): M21.41 - FLAT FOOT [PES PLANUS] (ACQUIRED), RIGHT FOOT SNOMED Code(s): 92602585 Time with Patient: Less than 30
[2018-01-12] MEDS: HYDROcodone/APAP 7.5-325MG 1 EACH TAB PO PRN (17:30)
[2018-01-12] MEDS: SENNOSIDES-DOCUSATE SODIUM 1 EACH TAB PO SCH (19:44)
[2018-01-12] MEDS: FLUTICASONE 50MCG/SPRAY NASAL 16GM EA NOSTRIL PRN (22:11)
[2018-01-12] MEDS ORDERED: HYDROcodone/APAP 5-325MG 1 EACH TAB ONE (23:30)
[2018-01-13] MEDS: HYDROcodone/APAP 7.5-325MG 1 EACH TAB PO PRN ×2 (06:47→12:21)
[2018-01-13] MEDS ORDERED: MONTELUKAST 10 MG TAB PO SCH (09:00)
[2018-01-13] MEDS: ENOXAPARIN 40 MG/0.4 ML SYRINGE SQ SCH (09:34)
[2018-01-13] MEDS: FLUTICASONE 50MCG/SPRAY NASAL 16GM EA NOSTRIL PRN (09:38)
[2018-01-13 09:53] VITALS: RESP 20
[2018-01-13 13:12] VITALS: BP 151/88; PULSE 83; TEMP 98.1
--- NOTE | 2018-01-13 13:56 | P.DS ---
Providers Date of admission: 01/12/18 02:00 Expected date of discharge: 01/13/18 Attending physician: Kyaw Dietz Primary care physician: Dawood Alejandro - Discharge Diagnosis(es) (1) Flat foot [pes planus] (acquired), right foot Patient was admitted to the OR on 01/11/2018 to undergo a Right triple arthrodesis and Right percutaneous tendo Achilles lengthening. She had failed conservative measures as an outpatient and desired to proceed with elective surgery after given informed consent. She underwent the above procedure which she tolerated well without complication. Postoperative hospital course has remained without complication. On day of discharge she is afebrile, vital signs stable, labs within acceptable ranges, tolerating by mouth meds and diet, voiding without difficulty, positive flatus, denies abdominal pain or calf pain , pain is controlled on oral pain medication and has no new complaints. Wound is benign, neurovascular status is intact, calf is soft and nontender, abdomen soft and nontender. Review of systems is negative for numbness, tingling, fever , chills, chest pain, shortness breath, nausea, vomiting, dizziness, headaches, slurred speech or other. Current Visit: Yes Status: Acute Priority: Medium Procedures: 1. Right triple arthrodesis 2. Right percutaneous tendo Achilles lengthening Patient Condition at Discharge: Good Plan - Discharge Summary Discharge Rx Participant: No New Discharge Prescriptions: New Aspirin 325 mg PO BID #60 tab Docusate [Colace] 100 mg PO BID #60 capsule HYDROcodone/APAP 7.5-325MG [[place] 7.5-325] 1 - 2 tab PO Q6HR PRN #56 tab PRN Reason: Pain No Action Multivitamins, Thera [Multivitamin (formulary)] 1 tab PO DAILY Sertraline [Zoloft] 50 mg PO DAILY Montelukast [Singulair] 10 mg PO DAILY Losartan [Cozaar] 50 mg PO DAILY Furosemide [Lasix] 20 mg PO DAILY Ciclopirox Olamine Cream [Ciclodan] 1 applic TOPICAL BID Celecoxib [CeleBREX] 200 mg PO DAILY Discharge Medication List Furosemide [Lasix] 20 mg PO DAILY 03/13/16 [History] Losartan [Cozaar] 50 mg PO DAILY 03/13/16 [History] Montelukast [Singulair] 10 mg PO DAILY 09/15/16 [History] Multivitamins, Thera [Multivitamin (formulary)] 1 tab PO DAILY 03/13/16 [History ] Sertraline [Zoloft] 50 mg PO DAILY 03/13/16 [History] Celecoxib [CeleBREX] 200 mg PO DAILY 12/24/17 [History] Ciclopirox Olamine Cream [Ciclodan] 1 applic TOPICAL BID 12/24/17 [History] Aspirin 325 mg PO BID #60 tab 01/13/18 [Rx] Docusate [Colace] 100 mg PO BID #60 capsule 01/13/18 [Rx] HYDROcodone/APAP 7.5-325MG [[place] 7.5-325] 1 - 2 tab PO Q6HR PRN #56 tab [Rx] Follow up Appointment(s)/Referral(s): Kyaw Dietz MD [Medical Doctor] - 2 Weeks Activity/Diet/Wound Care/Special Instructions: Non weightbearing elevate extremity Take meds as directed F/U with Dr. Dietz Maintain splint. Keep clean and dry Discharge Disposition: HOME SELF-CARE
== END 2018-01-13 14:55 | disposition home or self-care (01) ==
LOC: OR 12:43 → 6PED 18:01 → OR 01-12 02:00
PROVIDERS: ADMIT Orthopaedic Surgery; ATTEND Orthopaedic Surgery
DX: M21.41 Flat foot [pes planus] (acquired), right foot (principal); M67.01 Short Achilles tendon (acquired), right ankle; Z68.43 Body mass index [BMI] 50.0-59.9, adult; E66.01 Morbid (severe) obesity due to excess calories; M19.071 Primary osteoarthritis, right ankle and foot; J45.909 Unspecified asthma, uncomplicated; K21.9 Gastro-esophageal reflux disease without esophagitis; Z79.899 Other long term (current) drug therapy; M25.871 Other specified joint disorders, right ankle and foot; Z90.49 Acquired absence of other specified parts of digestive tract; F32.9 Major depressive disorder, single episode, unspecified; Z79.51 Long term (current) use of inhaled steroids; I10 Essential (primary) hypertension; Z88.4 Allergy status to anesthetic agent; H91.90 Unspecified hearing loss, unspecified ear
CPT/HCPCS: 28715; 27685; 97162; 85025; 82306; 73600; G0378 ×2; C1713 ×2; C1762; J2250; J0330; J2710; J0690 ×3; J2405; J2001; J1650 ×2; J3010; J1170 ×3; J2795; J2370; J2704

== ENCOUNTER → 2018-03-18 | Outpatient (CLI) | payer OTHER ==
--- NOTE | 2018-03-18 17:56 | XR ---
EXAMINATION TYPE: XR foot complete RT DATE OF EXAM: 03/18/2018 COMPARISON: NONE HISTORY: Foot pain TECHNIQUE: 3 views FINDINGS: Metatarsals appear intact. There are plates and screws fixating the hindfoot. There is a uribe btalar fusion. There is soft tissue swelling of the forefoot. I see no fracture. There is narrowing a nd spurring at the first MP joint. IMPRESSION: Posterior foot fusion surgery. Soft tissue swelling. No acute bony abnormality.
--- NOTE | 2018-03-18 17:57 | XR ---
EXAMINATION TYPE: XR ankle complete RT DATE OF EXAM: 03/18/2018 COMPARISON: NONE HISTORY: Ankle pain TECHNIQUE: 3 views FINDINGS: There is soft tissue swelling around the ankle joint. Ankle mortise is anatomic. There is h indfoot fusion surgery. There is a moderate plantar calcaneal spur. IMPRESSION: Soft tissue swelling. Previous surgery. No fracture seen. 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
--- NOTE | 2018-03-18 17:58 | XR ---
EXAMINATION TYPE: XR tibia fibula RT DATE OF EXAM: 03/18/2018 COMPARISON: NONE HISTORY: Pain TECHNIQUE: 2 views FINDINGS: Tibia and fibula appear intact. I see no fracture nor dislocation. There is some spurring o f the patella. IMPRESSION: No acute abnormality of the right tibia and fibula.
== END | disposition home or self-care (01) ==
LOC: RADXRMAIN 16:24
PROVIDERS: ATTEND Emergency Medicine
DX: M25.571 Pain in right ankle and joints of right foot (principal); M79.671 Pain in right foot; S93.401D Sprain of unspecified ligament of right ankle, subsequent encounter

== ENCOUNTER 2018-05-19 12:21 | Observation (INO) | payer BC, OTHER ==
--- NOTE | 2018-05-19 14:04 | ED ---
General Adult HPI - General Chief complaint: Nausea/Vomiting/Diarrhea Stated complaint: Vomiting Time Seen by Provider: 05/19/18 14:03 Source: patient Mode of arrival: wheelchair Limitations: no limitations - History of Present Illness Initial comments: This is a 57-year-old female with past medical history of hypertension and arthritis presented today for chief complaint of nausea and vomiting since 9 AM. Patient states that since this morning she has had nothing by mouth due to consistent nausea and vomiting. Patient states that she has diffuse upper abdominal pain mostly left upper quadrant, denies lower abdominal pain. Patient denies any hematemesis, melena or hematochezia. Patient denies any chest pain or shortness of breath. Patient denies sick contacts or recent travel. Pt does admit to chills prior to vomiting, and softer stool this AM denies liquidy diarrhea, fever, nightsweats, headache, body aches. Remainder of ROS (-). - Related Data Home Medications Medication Instructions Recorded Confirmed Furosemide [Lasix] 20 mg PO DAILY 03/13/16 05/19/18 Losartan [Cozaar] 50 mg PO DAILY 03/13/16 05/19/18 Montelukast [Singulair] 10 mg PO DAILY 03/13/16 05/19/18 Sertraline [Zoloft] 50 mg PO DAILY 03/13/16 05/19/18 Chlorpheniramine Maleate 4 mg PO Q4H PRN 05/19/18 05/19/18 [Chlor-Trimeton] Nauzene 2 - 4 tab PO Q15M PRN 05/19/18 05/19/18 Previous Rx's Medication Instructions Recorded HYDROcodone/APAP 7.5-325MG [[place] 1 - 2 tab PO Q6HR PRN #56 tab 01/13/18 7.5-325] Allergies Allergy/AdvReac Type Severity Reaction Status Date / Time pilocarpine HCl Allergy Itching Verified 05/19/18 14:08 [From [place]] bupivacaine HCl AdvReac Swelling Verified 05/19/18 14:08 [From Marcaine] AFTER INJECTION IN KNEE Review of Systems ROS Statement: Those systems with pertinent positive or pertinent negative responses have been documented in the HPI. ROS Other: All systems not noted in ROS Statement are negative. Constitutional: Denies: fever, chills ENT: Denies: ear pain, throat pain Respiratory: Denies: cough, dyspnea, wheezes, hemoptysis, stridor Cardiovascular: Denies: chest pain, palpitations Endocrine: Denies: fatigue Gastrointestinal: Reports: abdominal pain, nausea, vomiting. Denies: diarrhea, constipation, hematemesis, melena, hematochezia Genitourinary: Denies: urgency, dysuria, frequency, hematuria Musculoskeletal: Denies: back pain Skin: Denies: rash, lesions Neurological: Denies: headache, weakness, numbness, paresthesias, confusion Past Medical History Past Medical History: GERD/Reflux, Hearing Disorder / Deafness, Hypertension, Musculoskeletal Disorder, Skin Disorder Additional Past Medical History / Comment(s): STRESS TEST 09/2015 - VALVE HAS SL LEAKAGE. SEASONAL ALLERGY. TINNITUS. SL OA. FOLICULITIS SCALP; ATHLETES'S FOOT; LIPOMA RT UPPER BACK. Pt states that she has been cleared from cardio and that it was just a misread image that led to the stress test. History of Any Multi-Drug Resistant Organisms: None Reported Past Surgical History: Cholecystectomy, Tonsillectomy Additional Past Surgical History / Comment(s): RT SHOULDER IMPINGEMENT REPAIR, EXC PART CLAVICLE. right ankle fusion Past Anesthesia/Blood Transfusion Reactions: No Reported Reaction Past Psychological History: No Psychological Hx Reported Smoking Status: Never smoker Past Alcohol Use History: Rare Past Drug Use History: None Reported - Past Family History Mother Family Medical History: Cancer Additional Family Medical History / Comment(s): Breast cancer Father Family Medical History: Congestive Heart Failure (CHF), COPD, Osteoarthritis (OA ) General Exam - General Exam Comments Initial Comments: General: The patient is awake and alert, in no distress, and does not appear acutely ill. Morbidly obese Eye: Pupils are equal, round and reactive to light, extra-ocular movements are intact. No nystagmus. There is normal conjunctiva bilaterally. No signs of icterus. Ears, nose, mouth and throat: There are moist mucous membranes and no oral lesions. Neck: The neck is supple, there is no tenderness or JVD. Cardiovascular: There is a regular rate and rhythm. No murmur, rub or gallop is appreciated. Respiratory: Lungs are clear to auscultation, respirations are non-labored, breath sounds are equal. No wheezes, stridor, rales, or rhonchi. Gastrointestinal: No noted diaphoresis, jaundice, pallor, protecting postures or squirming. Symmetrical pigmentation of abdomen without signs of inflammation, scars, or striae. Umbilicus mildline, inverted without swelling. No dilated veins. Abdomen contour morbidly obese, no noted abdominal distention. No visible masses. No peristalsis, aortic pulsations, or ventral hernia. Bowel sounds audible in all 4 quadrants, unremarkable. No friction rubs or venous hums. No epigastic, hepatic or abdominal bruits. No tenderness to light or deep palpation of the lower abdomen, mild epigastric and LUQ discomfort. Liver edge, not palpable. Spleen edge, right and left kidney not palpable. Superior bladder margin non-tender. Special Testing: Negative [place], Rov[place], McBurney, [place], cutaneous hyperesthesia. Iliopsoas and obturator tests negative bilaterally. Negative Heel Jar test/ david sign. No CVA tenderness. Digital rectal exam deferred. Negative jackson turners or cullens sign Musculoskeletal: Normal ROM, no tenderness. Strength 5/5. Sensation intact. Pulses equal bilaterally 2+. Neurological: A&O x 3. CN II-XII intact, There are no obvious motor or sensory deficits. Coordination appears grossly intact. Speech is normal. Skin: Skin is warm and dry and no rashes or lesions are noted. Psychiatric: Cooperative, appropriate mood & affect, normal judgment. Limitations: no limitations Course Vital Signs 05/19/18 05/19/18 12:35 16:23 Temperature 97.9 F Pulse Rate 75 75 Respiratory 18 20 Rate Blood Pressure 150/81 161/85 O2 Sat by Pulse 100 100 Oximetry EKG Findings - EKG Comments: EKG Findings:: A 12-lead EKG was performed and shows the following: Rate is 74bpm, and rhythm is normal sinus. There are normal QRS complexes and normal R- wave progression. ST segments have no elevation or depression, and AR segments appear normal. Vent rate 74 per minute, AR 180 ms, QRS duration 100 ms, QT/QTC 390/420 ms. Medical Decision Making - Medical Decision Making His laboratory values are remarkable, mildly elevated white blood cell count. Abdominal exam revealed LUQ and epigastric discomfort, no RUQ or lower abdominal pain, no rigidity or guarding. No peritoneal irritation signs. UA revealed ketones, no other abnormalities. EKG within acceptable limits. No specific findings, CXR (-). CT abdomen pelvis (-). At this time there no clinical findings concerning for acute abdominal process. I feel pt nausea and vomiting is most likely due to a gastritis/enteritis. However pt unable to tolerate PO intake, pt will be admitted for mgmt of nausea and vomiting as well as fluid hydration. Pt and agreeable with admission. Case discussed with Dr. Harrison who spoke to Dr. Asif who accepted admission to observation. Pt resumed on home medications, given zofran PRN and protonix daily. Pt transferred to floor in stable condition. - Lab Data Result diagrams: 05/19/18 14:40 05/19/18 14:40 Lab Results 05/19/18 05/19/18 05/19/18 Range/Units 14:40 14:40 14:40 WBC 11.4 H (3.8-10.6) k/uL RBC 4.74 (3.80-5.40) m/uL Hgb 13.2 (11.4-16.0) gm/dL Hct 40.7 (34.0-46.0) % MCV 85.9 (80.0-100.0) fL MCH 27.8 (25.0-35.0) pg MCHC 32.4 (31.0-37.0) g/dL RDW 14.1 (11.5-15.5) % Plt Count 287 (150-450) k/uL Neutrophils % 88 % Lymphocytes % 9 % Monocytes % 2 % Eosinophils % 1 % Basophils % 0 % Neutrophils # 9.9 H (1.3-7.7) k/uL Lymphocytes # 1.0 (1.0-4.8) k/uL Monocytes # 0.3 (0-1.0) k/uL Eosinophils # 0.1 (0-0.7) k/uL Basophils # 0.0 (0-0.2) k/uL Sodium 140 (137-145) mmol/L Potassium 4.4 (3.5-5.1) mmol/L Chloride 103 (98-107) mmol/L Carbon Dioxide 26 (22-30) mmol/L Anion Gap 11 mmol/L BUN 17 (7-17) mg/dL Creatinine 0.63 (0.52-1.04) mg/dL Est GFR (CKD-EPI)AfAm >90 (>60 ml/min/1.73 sqM) Est GFR (CKD-EPI)NonAf >90 (>60 ml/min/1.73 sqM) Glucose 145 H (74-99) mg/dL Calcium 9.6 (8.4-10.2) mg/dL Total Bilirubin 0.7 (0.2-1.3) mg/dL AST 27 (14-36) U/L ALT 20 (9-52) U/L Alkaline Phosphatase 96 (38-126) U/L Total Creatine Kinase 100 (30-135) U/L CK-MB (CK-2) 1.6 (0.0-2.4) ng/mL CK-MB (CK-2) Rel Index 1.6 Troponin I <0.012 (0.000-0.034) ng/mL Total Protein 7.7 (6.3-8.2) g/dL Albumin 4.2 (3.5-5.0) g/dL Amylase 39 (30-110) U/L Lipase 71 (23-300) U/L Urine Color Urine Appearance (Clear) Urine pH (5.0-8.0) Ur Specific [place] (1.001-1.035) Urine Protein (Negative) Urine Glucose (UA) (Negative) Urine Ketones (Negative) Urine Blood (Negative) Urine Nitrite (Negative) Urine Bilirubin (Negative) Urine Urobilinogen (<2.0) mg/dL Ur Leukocyte Esterase (Negative) 05/19/18 Range/Units 16:54 WBC (3.8-10.6) k/uL RBC (3.80-5.40) m/uL Hgb (11.4-16.0) gm/dL Hct (34.0-46.0) % MCV (80.0-100.0) fL MCH (25.0-35.0) pg MCHC (31.0-37.0) g/dL RDW (11.5-15.5) % Plt Count (150-450) k/uL Neutrophils % % Lymphocytes % % Monocytes % % Eosinophils % % Basophils % % Neutrophils # (1.3-7.7) k/uL Lymphocytes # (1.0-4.8) k/uL Monocytes # (0-1.0) k/uL Eosinophils # (0-0.7) k/uL Basophils # (0-0.2) k/uL Sodium (137-145) mmol/L Potassium (3.5-5.1) mmol/L Chloride (98-107) mmol/L Carbon Dioxide (22-30) mmol/L Anion Gap mmol/L BUN (7-17) mg/dL Creatinine (0.52-1.04) mg/dL Est GFR (CKD-EPI)AfAm (>60 ml/min/1.73 sqM) Est GFR (CKD-EPI)NonAf (>60 ml/min/1.73 sqM) Glucose (74-99) mg/dL Calcium (8.4-10.2) mg/dL Total Bilirubin (0.2-1.3) mg/dL AST (14-36) U/L ALT (9-52) U/L Alkaline Phosphatase (38-126) U/L Total Creatine Kinase (30-135) U/L CK-MB (CK-2) (0.0-2.4) ng/mL CK-MB (CK-2) Rel Index Troponin I (0.000-0.034) ng/mL Total Protein (6.3-8.2) g/dL Albumin (3.5-5.0) g/dL Amylase (30-110) U/L Lipase (23-300) U/L Urine Color Yellow Urine Appearance Clear (Clear) Urine pH 6.5 (5.0-8.0) Ur Specific [place] 1.016 (1.001-1.035) Urine Protein Negative (Negative) Urine Glucose (UA) Negative (Negative) Urine Ketones 1+ H (Negative) Urine Blood Negative (Negative) Urine Nitrite Negative (Negative) Urine Bilirubin Negative (Negative) Urine Urobilinogen <2.0 (<2.0) mg/dL Ur Leukocyte Esterase Negative (Negative) Disposition Clinical Impression: Nausea and vomiting Disposition: ADMITTED IP TO THIS [facility] Condition: Stable Is patient prescribed a controlled substance at d/c from ED?: No Referrals: Dawood Alejandro DO [Primary Care Provider] - 1-2 days Time of Disposition: 18:21 Decision to Admit Reason: Admit from EC Decision Date: 05/19/18 Decision Time: 18:21
[2018-05-19] MEDS ORDERED: ONDANSETRON 4 MG/2 ML VIAL IVP STA ×3 (14:24→17:59)
[2018-05-19 15:05] LABS: Basophils % (A) 0 %; Eosinophils # (A) 0.1 k/uL (0-0.7); Eosinophils % (A) 1 %; HCT 40.7 % (34.0-46.0); HGB 13.2 gm/dL (11.4-16.0); Lymphocytes % (A) 9 %; MCH 27.8 pg (25.0-35.0); MCHC 32.4 g/dL (31.0-37.0); MCV 85.9 fL (80.0-100.0); Mean Platelet Volume 6.6; Monocytes # (A) 0.3 k/uL (0-1.0); Monocytes % (A) 2 %; Neutrophils # (A) 9.9 k/uL (1.3-7.7); Neutrophils % (A) 88 %; Platelet Count 287 k/uL (150-450); RBC 4.74 m/uL (3.80-5.40); RDW 14.1 % (11.5-15.5); WBC 11.4 k/uL (3.8-10.6)
[2018-05-19 15:17] LABS: ALT 20 U/L (9-52); AST 27 U/L (14-36); Albumin 4.2 g/dL (3.5-5.0); Alkaline Phosphatase 96 U/L (38-126); Amylase 39 U/L (30-110); Anion Gap 11 mmol/L; Blood Urea Nitrogen 17 mg/dL (7-17); Calcium 9.6 mg/dL (8.4-10.2); Carbon Dioxide 26 mmol/L (22-30); Chloride 103 mmol/L (98-107); Glucose 145 mg/dL (74-99); Lipase 71 U/L (23-300); Potassium 4.4 mmol/L (3.5-5.1); Sodium 140 mmol/L (137-145); Total Bilirubin 0.7 mg/dL (0.2-1.3); Total Protein 7.7 g/dL (6.3-8.2)
[2018-05-19 15:20] LABS: Creatine Kinase 100 U/L (30-135)
--- NOTE | 2018-05-19 15:23 | XR ---
EXAMINATION TYPE: XR chest 2V DATE OF EXAM: 05/19/2018 COMPARISON: 09/03/2016 HISTORY: 57 year-old female epigastric pain with nausea and vomiting TECHNIQUE: PA and lateral views FINDINGS: Heart borderline enlarged. Diffuse interstitial prominence is unchanged. No consolidation or pleural effusion. IMPRESSION: Borderline heart size. Chronic changes, possible bronchitis or asthma. No focal infiltrate seen.
[2018-05-19 15:32] LABS: Creatine Kinase MB 1.6 ng/mL (0.0-2.4); Troponin I <0.012 ng/mL (0.000-0.034)
[2018-05-19 17:26] LABS: Appearance,Urine Clear (Clear); Bilirubin,Urine Negative (Negative); Blood,Urine Negative (Negative); Color,Urine Yellow; Glucose,Urine (UA) Negative (Negative); Ketones,Urine 1+ (Negative); Leukocyte Esterase,Urine Negative (Negative); Nitrite,Urine Negative (Negative); PH, Urine 6.5 (5.0-8.0); Protein,Urine Negative (Negative); Specific Gravity,Urine 1.016 (1.001-1.035); Urobilinogen,Urine <2.0 mg/dL (<2.0)
[2018-05-19] MEDS ORDERED: SODIUM CHLORIDE 0.9% 1,000 ML IV ONE (17:33)
--- NOTE | 2018-05-19 17:42 | CT ---
EXAMINATION TYPE: CT abdomen pelvis w con DATE OF EXAM: 05/19/2018 COMPARISON: None HISTORY: Upper Abdominal pain with nausea and vomiting today CT DLP: 2641.9 mGycm Automated exposure control for dose reduction was used. TECHNIQUE: Helical acquisition of images was performed from the lung bases through the pelvis. CONTRAST: Performed without Oral Contrast and with IV Contrast, patient injected with 100 mL of Isovue 300. FINDINGS: There is mild subsegmental atelectasis at the lung bases. Heart appears slightly enlarged. There is n o pleural effusion. There is hiatal hernia. The remainder of the stomach appears normal. There are cl ips from cholecystectomy. Liver shows no focal defect. Spleen appears normal. There is no pancreatic mass. There is no adrenal mass. There is 4 cm cortical cyst anterior left kidney. There is no hydronephrosi s. There is no retroperitoneal adenopathy. There are multiple sigmoid diverticula. There is no eviden ce of diverticulitis. Bladder distends smoothly. There is no inguinal hernia. There is no free fluid in the pelvis. Appendix is not clearly seen. There is no sign of appendicitis. The lumbar vertebra ap pear intact. There is no compression fracture. There are spondylotic changes in the lumbar spine. The re is multilevel facet arthropathy. I see no bony destructive process. IMPRESSION: SIGMOID DIVERTICULOSIS WITHOUT DIVERTICULITIS. SMALL HIATAL HERNIA. I DO NOT SEE A DEFINITE REASON FO R UPPER ABDOMINAL PAIN.
[2018-05-19] MEDS ORDERED: PANTOPRAZOLE 40 MG/10 ML VIAL IVP STA (18:08)
[2018-05-19] MEDS ORDERED: NALOXONE 0.4 MG/ML 1 ML VIAL IV PRN (18:08)
[2018-05-19] MEDS ORDERED: ONDANSETRON 4 MG/2 ML VIAL IVP PRN (18:08)
[2018-05-19] MEDS ORDERED: HYDROcodone/APAP 7.5-325MG 1 EACH TAB PO PRN (18:20)
[2018-05-19] MEDS: SODIUM CHLORIDE 0.9% 1,000 ML IV SCH (19:43)
[2018-05-19] MEDS: METOCLOPRAMIDE 5 MG/ML 2 ML VIAL IVP PRN (20:16)
[2018-05-19] MEDS: SUCRALFATE 1 GM TAB PO SCH (21:58)
--- NOTE | 2018-05-19 22:08 | HP ---
HISTORY AND PHYSICAL I am covering for Dr. capone. CHIEF COMPLAINTS: Nausea, vomiting and diarrhea. HISTORY OF PRESENT ILLNESS: This 57-year-old woman with past history of GERD, hypertension, DJD, had significant pain last night. The patient apparently took two Motrins and today this morning the patient started vomiting at 9 o'clock and unable to keep anything down and the patient came to [facility] and was admitted to the hospital for further evaluation and treatment. There is no history of fever, rigors. No history of headache, loss of consciousness, seizures at this time. PAST MEDICAL HISTORY: History of GERD, history of hypertension, history of degenerative joint disease. History of previous stress test. MEDICATIONS ARE: 1. Zoloft 50 mg p.o. daily. 3. Montelukast that is Singular 10 mg p.o. daily. 4. Cozaar 50 mg. 5. [place] 7.5 q.6h p.r.n. 6. Lasix 20 mg p.o. daily. 7. 4 mg p.o. q.4h p.r.n. ALLERGIES: PILOCARPINE . FAMILY HISTORY: History of breast cancer in the family. SOCIAL HISTORY: No history of smoking. Occasional alcohol intake. REVIEW OF SYSTEMS: ENT: No diminished vision. No diminished hearing. CARDIOVASCULAR: No angina or palpitations. RESPIRATORY: No cough or hemoptysis. GI as mentioned earlier. no dysuria. Nervous system: No numbness or weakness. ALLERGY: No asthma or hayfever. MUSCULOSKELETAL as mentioned earlier. HEMATOLOGY/ONCOLOGY: No history of anemia. ENDOCRINE: No history of diabetes or hypothyroidism. CONSTITUTIONAL: As mentioned earlier. Dermatology: Negative. Rheumatology: Negative. Psychiatry: As mentioned earlier. PHYSICAL EXAM: Patient is alert, oriented x3. Pulse 75, blood pressure 161/85, respiration 20, temperature 98.8. Pulse ox 100 percent on room air. HEENT: Conjunctivae normal. Oral mucosa moist. Neck is no jugular venous distention. No carotid bruit. No lymph node enlargement. CARDIOVASCULAR: S1, S2 muffled. RESPIRATORY: Breath sounds diminished in the bases. No rhonchi. No crackles. ABDOMEN: Soft. Mild diffuse discomfort on palpation. No mass palpable. No guarding. No rigidity. LEGS: No edema, no swelling. NERVOUS SYSTEM: Higher functions as mentioned earlier. Moves all four extremities. No focal deficits. Lymphatics: No lymph nodes palpable in the neck, axillae or groin. SKIN: No ulcer, rash or bleeding. LABS: WBC 7.5, hemoglobin 13.2. Glucose [address] scan of the abdomen and pelvis which was reviewed showed sigmoid diverticulosis without any diverticulitis. ASSESSMENT: 1. Nausea, vomiting, possible acute gastritis. 2. History of gastroesophageal reflux disease. 3. Hypertension. 4. Degenerative joint disease. 5. History of stress test. 6. History of seasonal allergies. 7. Cholecystectomy. RECOMMENDATIONS AND DISCUSSION: In this 57-year-old woman who presented with multiple complex medical issues, we will monitor the patient closely. Continue the current medications, management and symptomatic treatment. I would recommend to keep the patient n.p.o. except medications and continue to monitor. IV fluids. Otherwise, we will follow the patient closely and repeat labs will be done. Prognosis guarded because of multiple complex medical issues. Further recommendations to follow. I would also recommend cardiac workup as well. MMROBINSONL / IJN: [id number] / SHAHEED
[2018-05-20] MEDS: METOCLOPRAMIDE 5 MG/ML 2 ML VIAL IVP PRN (02:06)
[2018-05-20 04:05] LABS: Amphetamine Screen,Urine Not Detected (NotDetected); Barbiturate Screen,Urine Not Detected (NotDetected); Benzodiazepines Screen,Urine Not Detected (NotDetected); Cocaine Screen,Urine Not Detected (NotDetected); Methadone Screen, Urine Not Detected (NotDetected); Opiate Screen,Urine Not Detected (NotDetected); Oxycodone Screen, Urine Not Detected (NotDetected); Phencyclidine Screen,Urine Not Detected (NotDetected); Tricyclic Antidepressant,Urine Not Detected (NotDetected); Urn Cannabinoid Scrn Not Detected (NotDetected)
[2018-05-20] MEDS: SERTRALINE 50 MG TAB PO SCH (07:53)
[2018-05-20] MEDS: MONTELUKAST 10 MG TAB PO SCH (07:53)
[2018-05-20] MEDS: SUCRALFATE 1 GM TAB PO SCH ×4 (07:53→20:52)
[2018-05-20] MEDS: PANTOPRAZOLE 40 MG/10 ML VIAL IVP SCH ×2 (07:53→20:53)
[2018-05-20] MEDS: LOSARTAN 50 MG TAB PO SCH (07:53)
[2018-05-20] MEDS: FUROSEMIDE 20 MG TAB PO SCH (07:54)
[2018-05-20] MEDS: SODIUM CHLORIDE 0.9% 1,000 ML IV SCH ×2 (08:04→20:52)
[2018-05-20] MEDS ORDERED: PANTOPRAZOLE 40 MG/10 ML VIAL IV SCH (09:00)
[2018-05-20] MEDS ORDERED: SERTRALINE 50 MG TAB PO SCH (09:00)
[2018-05-20 09:39] LABS: Anion Gap 9 mmol/L; Blood Urea Nitrogen 15 mg/dL (7-17); Calcium 9.1 mg/dL (8.4-10.2); Carbon Dioxide 27 mmol/L (22-30); Chloride 106 mmol/L (98-107); Glucose 103 mg/dL (74-99); Potassium 4.1 mmol/L (3.5-5.1); Sodium 142 mmol/L (137-145)
[2018-05-20 09:41] LABS: Basophils % (A) 0 %; Eosinophils # (A) 0.1 k/uL (0-0.7); Eosinophils % (A) 0 %; HCT 36.5 % (34.0-46.0); HGB 11.7 gm/dL (11.4-16.0); Lymphocytes % (A) 8 %; MCH 27.6 pg (25.0-35.0); MCHC 32.1 g/dL (31.0-37.0); MCV 85.8 fL (80.0-100.0); Mean Platelet Volume 7.3; Monocytes # (A) 0.7 k/uL (0-1.0); Monocytes % (A) 6 %; Neutrophils # (A) 10.6 k/uL (1.3-7.7); Neutrophils % (A) 85 %; Platelet Count 242 k/uL (150-450); RBC 4.25 m/uL (3.80-5.40); RDW 14.3 % (11.5-15.5); WBC 12.5 k/uL (3.8-10.6)
[2018-05-20] MEDS: ASPIRIN 81 MG PO SCH (16:33)
--- NOTE | 2018-05-21 00:33 | PN ---
PROGRESS NOTE I am covering for Dr. Alejandro. DATE OF SERVICE: 05/20/2018 This 57-year-old woman with a past history of multiple medical problems being followed by Dr. Alejandro in the outpatient setting, admitted with features of acute gastritis. No chest pain. No palpitations. No fever. Patient has had some nausea this morning also. EXAM: Alert and oriented. Pulse 67, blood pressure 140/70, respiration 18, temperature 98 degrees, pulse ox 98% on room air. HEENT: Conjunctivae normal. Oral mucosa. NECK: No jugular venous distention. No lymph node enlargement. CARDIOVASCULAR: S1, S2. RESPIRATORY: Diminished breath sounds at the bases. Bilateral scattered rhonchi and crackles. ABDOMEN: Soft, nontender. LEGS: No swelling. NERVOUS SYSTEM: No focal deficits. LABS: WBC 12.5, troponin 0.049 and 0.043. EKG, ST-T changes. ASSESSMENT: 1. Epigastric pain, possible acute gastritis. 2. Elevated troponin, indeterminate of unknown significance for coronary disease. 3. GERD. 4. Hypertension. 5. History of DJD. 6. History of stress test. 7. History of seasonal allergies. 8. History of cholecystectomy. RECOMMENDATIONS: Recommend to continue current management and treatment. Start the diet and advanced slowly. Continue the proton pump inhibitors and also obtain a Cardiology evaluation. Prognosis guarded because of multiple complex medical issues. Further recommendations to follow. MMODL / IJN: [id number] /
[2018-05-21] MEDS: SUCRALFATE 1 GM TAB PO SCH ×4 (08:36→20:59)
[2018-05-21] MEDS: SERTRALINE 50 MG TAB PO SCH (08:36)
[2018-05-21] MEDS: FUROSEMIDE 20 MG TAB PO SCH (08:37)
[2018-05-21] MEDS: PANTOPRAZOLE 40 MG/10 ML VIAL IVP SCH ×2 (08:37→20:59)
[2018-05-21] MEDS: LOSARTAN 50 MG TAB PO SCH (08:37)
[2018-05-21] MEDS: ASPIRIN 81 MG PO SCH (08:37)
[2018-05-21] MEDS: MONTELUKAST 10 MG TAB PO SCH (08:37)
--- NOTE | 2018-05-21 08:51 | CONS ---
CONSULTATION Mrs. Li is a 57-year-old female with known history of hypertension who presented with symptoms of nausea and vomiting since yesterday. Cardiology consultation was requested because of mild troponin elevation. The patient has history of gastroesophageal reflux disease and has been having nausea and vomiting and some discomfort with the nausea and vomiting. She otherwise feels well. She is ambulating without difficulty on a regular basis. She has no chest discomfort. She has underwent foot surgery. In August of 2016, she was admitted to the hospital with symptoms of chest discomfort and underwent a dobutamine stress echocardiogram that was normal and her left ventricular systolic function was normal. The patient has no prior documented history of obstructive coronary artery disease. She has no clear PND nor orthopnea. No peripheral edema. No syncope. Her coronary risk factors are remarkable for the history of hypertension, she is a nonsmoker, nondiabetic current. MEDICATIONS: Her medications include Cozaar 50 mg daily, Lasix 20 mg daily, [place], Singulair 10 mg daily, Zoloft. REVIEW OF SYSTEMS: RESPIRATORY SYSTEM: She has no documented history of recent wheezing or cough. GI SYSTEM: She has nausea and vomiting and hiatal hernia. SYSTEM: No dysuria or hematuria. NERVOUS SYSTEM: No stroke or seizure. PAST SURGICAL HISTORY: Past surgical history is remarkable for the fact she underwent surgery on her foot in December of this year by Dr. Dietz. PHYSICAL EXAMINATION: She is a 57-year-old female, alert, oriented, in no apparent distress. Blood pressure 144/70 with the heart rate in the 60s. HEAD: Normocephalic. EYES: Sclerae anicteric. NECK: Good carotid upstroke. No bruit. No jugular venous distention. LUNGS: Clear to auscultation. HEART: Regular rate and rhythm. S1, S2. No S3. No S4. With a systolic murmur. ABDOMEN: Soft, obese, nontender. EXTREMITIES: No edema. Intact distal pulses. LAB DATA: Lab data revealed initial troponin 0.012. Subsequent troponin 0.049. Her EKG revealed a sinus mechanism, normal axis and intervals with nonspecific ST-T wave changes. Similar findings were noted on the EKG she had in August of last year. IMPRESSION: 1. Nausea and vomiting, probably gastritis. Workup in progress. 2. Mild troponin elevation of unclear etiology. Patient has no symptoms to suggest active ischemic event. 3. History of hypertension. RECOMMENDATION: I will obtain echocardiogram with Doppler. I will add to her regimen a low-dose aspirin. I will obtain subsequent troponin to see the trend and depending on that, further recommendation will be made. I have discussed with the patient those findings. Thank you for this consult. We will follow with you. MMODL / IJN: [id number] /
[2018-05-21 09:03] LABS: Basophils % (A) 0 %; Eosinophils # (A) 0.1 k/uL (0-0.7); Eosinophils % (A) 1 %; HCT 36.2 % (34.0-46.0); HGB 11.9 gm/dL (11.4-16.0); Lymphocytes # (A) 1.6 k/uL (1.0-4.8); Lymphocytes % (A) 21 %; MCH 28.7 pg (25.0-35.0); MCHC 32.7 g/dL (31.0-37.0); MCV 87.7 fL (80.0-100.0); Mean Platelet Volume 6.5; Monocytes # (A) 0.5 k/uL (0-1.0); Monocytes % (A) 7 %; Neutrophils # (A) 5.4 k/uL (1.3-7.7); Neutrophils % (A) 69 %; Platelet Count 220 k/uL (150-450); RBC 4.13 m/uL (3.80-5.40); RDW 14.5 % (11.5-15.5); WBC 7.7 k/uL (3.8-10.6)
[2018-05-21 09:15] LABS: Anion Gap 6 mmol/L; Blood Urea Nitrogen 15 mg/dL (7-17); Carbon Dioxide 30 mmol/L (22-30); Chloride 106 mmol/L (98-107); Glucose 93 mg/dL (74-99); Sodium 142 mmol/L (137-145)
[2018-05-21] MEDS: SODIUM CHLORIDE 0.9% 1,000 ML IV SCH (10:08)
[2018-05-21] MEDS ORDERED: SODIUM CHLORIDE 0.9% 1,000 ML in EMPTY BAG 1 BAG IV ONE (11:48)
[2018-05-21] MEDS ORDERED: ALPRAZolam 0.25 MG TAB PO PRN (11:48)
[2018-05-21] MEDS ORDERED: ALPRAZolam 0.5 MG TAB PO PRN (11:48)
[2018-05-21] MEDS ORDERED: ASPIRIN 325 MG TAB PO STA (11:48)
[2018-05-21] MEDS ORDERED: ATORVASTATIN 80 MG TAB PO STA (11:48)
[2018-05-21] MEDS ORDERED: NITROGLYCERIN SL TABS 0.4 MG TAB SUBLINGUAL PRN (11:48)
[2018-05-21] MEDS ORDERED: MIDAZOLAM 2 MG/2 ML VIAL ONE ×2 (13:42→14:15)
[2018-05-21] MEDS ORDERED: fentaNYL (PF) 50 MCG/ML 2 ML AMP ONE (13:42)
[2018-05-21] MEDS ORDERED: VERAPAMIL 2.5 MG/ML 2 ML AMP ONE (13:42)
[2018-05-21] MEDS ORDERED: fentaNYL (PF) 50 MCG/ML 2 ML AMP IVP ONE (13:46)
[2018-05-21] MEDS ORDERED: MIDAZOLAM 2 MG/2 ML VIAL IVP ONE ×3 (13:47→14:17)
[2018-05-21] MEDS ORDERED: LIDOCAINE 1% INJ 10MG/ML (20 ML MDV) SQ ONE ×4 (13:50→14:23)
[2018-05-21] MEDS ORDERED: IV FLUID CONTINUATION 200 ML IV ONE (13:52)
[2018-05-21] MEDS ORDERED: LIDOCAINE 1% INJ 10MG/ML (20 ML MDV) ONE ×2 (14:11→14:22)
[2018-05-21] MEDS ORDERED: IOPAMIDOL-370 125ML BTL INJ ONE (14:35)
[2018-05-21] MEDS ORDERED: SODIUM CHLORIDE 0.9% 1,000 ML IV SCH (14:45)
[2018-05-21] MEDS ORDERED: RX INFO: IV CONTRAST WAS GIVEN 1 EACH MISC MISCELLANE PRN (14:45)
--- NOTE | 2018-05-21 15:13 | CC ---
CARDIAC CATHETERIZATION REPORT Mrs. Li is a 57-year-old female with a history of hypertension who has no prior documented history of obstructive coronary artery disease. She presented with nausea and vomiting and chest discomfort that had some atypical features, but her troponins were elevated. Because of that, recommendation was made regarding cardiac catheterization. The procedure, its risks and complications were discussed with the patient, who was in full understanding and agreement. PROCEDURE: Patient was brought to the labor custodian in fasting, semi-sedated state after receiving fentanyl and Benadryl and achieving a moderate conscious sedated state. Using Xylocaine anesthesia and Seldinger technique, the right radial artery was cannulated, but there was inability to advance the wire because of severe vasospastic disease. Subsequently attempts to cannulate the left femoral artery were unsuccessful. Subsequently the right femoral artery was cannulated and a 6-[place] sheath was placed using Seldinger technique. Following that, selective right and left coronary angiography was performed using 6-[place] 4 bend right and left Fe catheters. Multiple views were taken of the arteries, including hemiaxial views. Following that, a 6-[place] tight pigtail catheter was introduced into the left ventricle and a 30-degree LAST view of the left ventricle was obtained. Following that, catheter and sheath were removed. Hemostasis was obtained with deployment of an Angio-Seal. There was no immediate complication. Patient was returned to her room in stable condition. FINDINGS: LEFT MAIN: This is a large-sized vessel trifurcating into left circumflex, left anterior descending artery and ramus intermedius. Left main coronary artery is without any significant obstructive disease. LEFT ANTERIOR DESCENDING ARTERY: This is a large-sized vessel that tapers down in the distal third, giving rise to a diagonal branch. The left anterior descending artery and its branches have no evidence of obstructive coronary artery disease. RAMUS INTERMEDIUS: This is a large-sized vessel reaching to the apicolateral wall. The ramus intermedius has no evidence of high-grade stenosis. LEFT CIRCUMFLEX: This is a nondominant vessel giving rise to 2 obtuse marginal branches of smaller caliber. The left circumflex as well as branches have no evidence of obstructive coronary artery disease. RIGHT CORONARY ARTERY: This is a large dominant vessel bifurcating distally into PDA and posterolateral segment and branches. The right coronary artery and its branches have no evidence of obstructive coronary artery disease. LEFT VENTRICULOGRAM: Left ventriculogram was performed in 30-degree LAST view and revealed normal left ventricular size and systolic function. Ejection fraction is 60%. There was arrhythmia-induced mitral regurgitation. HEMODYNAMICS: There was no gradient across the aortic valve. The left ventricular end- diastolic pressure was 20 mmHg. CONCLUSION: 1. Normal coronary arteries. 2. Normal left ventricular size and systolic function. RECOMMENDATIONS: In view of findings and anatomy, I have recommended continued medical therapy with the aggressive risk factor modifications that have been initiated. Those findings and recommendation were discussed with the patient and her family, who are in full understanding and agreement. Duration of procedure was 56 minutes. MMROBINSONL / SRAVANTHIN: [id number] /
--- NOTE | 2018-05-21 15:19 | PN ---
PROGRESS NOTE Mrs. Li is a 57-year-old female who presented with symptoms of nausea and vomiting and discomfort, predominantly when she vomits. Her troponins were mildly elevated. She is doing well this morning. She denies any further chest discomfort. Her nausea and vomiting are improved. On subsequent troponin samples, her samples remain elevated at 0.049, 0.043 and 0.042. She continues to be at this time on aspirin once a day, Cozaar 50 mg daily. PHYSICAL EXAMINATION: Blood pressure 130/70 with a heart rate in the 60s. LUNGS: Clear. HEART: Regular rate and rhythm. S1, S2. No S3. No rub. ABDOMEN: Soft, nontender. EXTREMITIES: No edema. IMPRESSION: 1. Mild elevation of troponin of unclear etiology. Her symptoms are not consistent with ischemic heart disease. The patient had only nausea and vomiting, but that was not severe enough to explain the elevation. 2. History of hypertension. RECOMMENDATIONS: Because of her elevation of troponin of unclear etiology, I have recommended proceeding with coronary angiography to assess her status and guide her treatment. The rationale behind the procedure as well as its risks and complications were discussed with the patient, who was in full understanding and agreement. MMODL / IJN: [id number] /
--- NOTE | 2018-05-21 17:12 | ECHOF ---
Referral Reason:htn MEASUREMENTS -------- HEIGHT: 160.0 cm WEIGHT: 145.1 kg BP: 130/75 RVIDd: 2.8 cm (< 3.3) IVSd: 1.2 cm (0.6 - 1.1) LVIDd: 4.9 cm (3.9 - 5.3) LVPWd: 1.2 cm (0.6 - 1.1) IVSs: 1.5 cm LVIDs: 3.5 cm LVPWs: 1.5 cm LAESV Index (A-L): 16.55 ml/m Ao Diam: 3.0 cm (2.0 - 3.7) AV Cusp: 2.0 cm (1.5 - 2.6) LA Diam: 3.5 cm (2.7 - 3.8) EPSS: 0.5 cm MV E Casey: 0.91 m/s MV DecT: 218 ms MV A Casey: 0.53 m/s MV E/A Ratio: 1.73 RAP: 15.00 mmHg RVSP: 36.18 mmHg MV EF SLOPE: 81.76 mm/s (70 - 150) MV EXCURSION: 1.70 cm (> 18.000) FINDINGS -------- Sinus rhythm. This was a technically adequate study. The left ventricular size is normal. There is mild concentric left ventricular hypertrophy. Overa ll left ventricular systolic function is normal with, an EF between 55 - 60 %. The right ventricle is normal in size and function. Normal LA size by volume 22+/-6 ml/m2. The right atrium is normal in size. The aortic valve is trileaflet, and appears structurally normal. No aortic stenosis or regurgitation. The mitral valve is normal. Mild mitral regurgitation is present. Mild tricuspid regurgitation present. There is mild pulmonary hypertension. The pulmonic valve was not well visualized. The aortic root size is normal. The inferior vena cava is dilated with poor inspiratory collapse which is consistent with estimated r ight atrial pressure of 20 mmHg. There is no pericardial effusion. CONCLUSIONS -------- 1. Sinus rhythm. 2. This was a technically adequate study. 3. The left ventricular size is normal. 4. There is mild concentric left ventricular hypertrophy. 5. Overall left ventricular systolic function is normal with, an EF between 55 - 60 %. 6. Normal LA size by volume 22+/-6 ml/m2. 7. The aortic valve is trileaflet, and appears structurally normal. No aortic stenosis or regurgitati on. 8. Mild mitral regurgitation is present. 9. There is mild pulmonary hypertension. 10. The pulmonic valve was not well visualized. 11. The aortic root size is normal. 12. The inferior vena cava is dilated with poor inspiratory collapse which is consistent with estimat ed right atrial pressure of 20 mmHg. 13. There is no pericardial effusion. PROGRAM MGR: Rhys [place] RDCS
--- NOTE | 2018-05-21 18:13 | PN ---
PROGRESS NOTE I am covering for Dr. Alejandro. DATE OF SERVICE: 05/21/2018 This 57-year-old woman who was admitted with epigastric pain also had elevated troponins. Cardiac catheterization was done by Dr. Murillo which showed normal coronaries and normal LV size and function also. No chest pain. No palpitations. No fever at this time. On exam, alert and oriented x3. Pulse 62, blood pressure 130/75, respiration 18, temperature 98.3, pulse ox 96% on room air. HEENT: Conjunctivae normal. Oral mucosa moist. NECK: No jugular venous distention. No carotid bruit. No lymph node enlargement. CARDIOVASCULAR SYSTEM: S1, S2 muffled. RESPIRATORY SYSTEM: Breath sounds diminished at the bases. No rhonchi. No crackles. ABDOMEN: Soft, non-tender. No mass palpable. LEGS: No edema. No swelling. NERVOUS SYSTEM: Higher functions as mentioned earlier. Moves all 4 limbs. No focal motor or sensory deficit. LYMPHATICS: No lymph node palpable in neck, axillae or groin. SKIN: No ulcer, rash, bleeding. Labs at this time show WBC 7.6, hemoglobin 11.9. Troponins are noted. ASSESSMENT: 1. Epigastric pain, possibly acute gastritis, present on admission. 2. Elevated troponin of undetermined origin, status post cardiac catheterization with normal coronary arteries. 3. Gastroesophageal reflux disease. 4. Hypertension. 5. History of degenerative joint disease. 6. History of stress test previously. 7. History of seasonal allergies. 8. History of cholecystectomy. RECOMMENDATIONS AND DISCUSSION: I recommend to continue current medication, continue symptomatic treatment. Continue with proton pump inhibitors. Closely follow with Cardiology. Prognosis guarded because of multiple complex medical issues. Further recommendations to follow. MMODL / IJN: [id number] /
[2018-05-22 04:49] VITALS: TEMP 98.2
[2018-05-22 05:47] LABS: Basophils % (A) 0 %; Eosinophils # (A) 0.1 k/uL (0-0.7); Eosinophils % (A) 2 %; HCT 35.5 % (34.0-46.0); HGB 11.3 gm/dL (11.4-16.0); Lymphocytes # (A) 1.1 k/uL (1.0-4.8); Lymphocytes % (A) 16 %; MCH 27.6 pg (25.0-35.0); MCHC 31.9 g/dL (31.0-37.0); MCV 86.6 fL (80.0-100.0); Mean Platelet Volume 6.5; Monocytes # (A) 0.4 k/uL (0-1.0); Monocytes % (A) 7 %; Neutrophils # (A) 5.1 k/uL (1.3-7.7); Neutrophils % (A) 74 %; Platelet Count 212 k/uL (150-450); RDW 14.2 % (11.5-15.5); WBC 6.8 k/uL (3.8-10.6)
[2018-05-22 06:00] LABS: Anion Gap 6 mmol/L; Blood Urea Nitrogen 15 mg/dL (7-17); Calcium 8.5 mg/dL (8.4-10.2); Carbon Dioxide 26 mmol/L (22-30); Chloride 108 mmol/L (98-107); Glucose 95 mg/dL (74-99); Potassium 3.7 mmol/L (3.5-5.1); Sodium 140 mmol/L (137-145)
[2018-05-22 07:22] VITALS: BP 133/72; RESP 16
[2018-05-22 07:24] VITALS: PULSE 62
[2018-05-22] MEDS: FUROSEMIDE 20 MG TAB PO SCH (08:25)
[2018-05-22] MEDS: LOSARTAN 50 MG TAB PO SCH (08:25)
[2018-05-22] MEDS: PANTOPRAZOLE 40 MG/10 ML VIAL IVP SCH (08:25)
[2018-05-22] MEDS: SUCRALFATE 1 GM TAB PO SCH (08:25)
[2018-05-22] MEDS: MONTELUKAST 10 MG TAB PO SCH (08:25)
[2018-05-22] MEDS: ASPIRIN 81 MG PO SCH (08:25)
[2018-05-22] MEDS: SERTRALINE 50 MG TAB PO SCH (09:12)
[2018-05-22] MEDS: SODIUM CHLORIDE 0.9% 1,000 ML IV SCH (09:15)
--- NOTE | 2018-05-22 11:23 | PN ---
PROGRESS NOTE Mrs. Li is a 57-year-old female with a history of hypertension who presented with nausea and vomiting and abdominal discomfort, had mild elevation of troponin of unclear etiology. Because of the persistent elevation of troponin, she subsequently underwent a cardiac catheterization that revealed no evidence of obstructive coronary artery disease. She is doing well this morning. She denies any symptoms of chest pain. She denies any dizziness or palpitation. She denies any nausea. She continues to be on aspirin 81 mg daily, furosemide 20 mg daily, losartan 50 mg daily, Protonix. PHYSICAL EXAMINATION: Blood pressure 133/70 with the heart rate in the 60s. LUNGS: Clear. HEART: Regular rate and rhythm. S1, S2. No S3. No rub. ABDOMEN: Soft, nontender, obese. EXTREMITIES: No edema. Both groin no hematoma. Right radial pulse intact. LAB DATA: Lab data revealed BUN and creatinine 15 and 0.7. Potassium 3.7. IMPRESSION: 1. Elevation of troponin with no evidence of obstructive coronary artery disease nor segmental wall motion abnormality, etiology unclear. 2. Nausea and vomiting, resolved. 3. History of hypertension. 4. Obesity. RECOMMENDATION: From the cardiac standpoint, she should be able to be discharged home today and followed as an outpatient. MMODL / IJN: [id number] /
--- NOTE | 2018-05-22 12:35 | DS ---
DISCHARGE SUMMARY FINAL DIAGNOSES: 1. Epigastric pain, possible acute gastritis, present on admission. 2. Elevated troponin of undetermined origin, status post cardiac catheterization with normal coronary arteries. 3. Gastroesophageal reflux disease. 4. Hypertension. 5. History of degenerative joint disease. 6. History of stress test previously. 7. History of seasonal allergies. 8. History of cholecystectomy. DISCHARGE DISPOSITION: Patient will be discharged in stable condition with guarded prognosis. HISTORY OF PRESENT ILLNESS: This 57-year-old woman with a past medical history of multiple medical problems being followed by Dr. Dawood Alejandro in the outpatient setting was admitted with epigastric pain. The patient was treated symptomatically. Patient also had indeterminate troponin. Also, Cardiology performed a cardiac catheterization, which showed normal coronary arteries. Patient improved significantly. On exam, vitals are stable. CARDIOVASCULAR: S1, S2. ABDOMEN: Soft. NERVOUS SYSTEM: No focal deficits. DISCHARGE ADVICE: 1. Diet is cardiac. 2. Activity limited until followup. 3. Follow up with Dr. Dawood Alejandro in 1 to 2 days. 4. Follow up with Dr. Murillo as recommended. MEDICATIONS ARE: 1. Chlor-Trimeton 4 mg p.o. q.4 p.r.n. 2. Lasix 20 mg p.o. daily. 3. Cozaar 50 mg p.o. daily. 4. Singulair 10 mg p.o. daily. 5. Nauzene 2 to 4 tablets q.15 p.r.n. 6. Zoloft 50 mg p.o. daily. 7. Hydrocodone 7.5 mg q.6 p.r.n. 8. Protonix 40 mg p.o. daily. 9. Carafate 1 gram q.i.d. MMODL / IJN: [id number] /
== END 2018-05-22 11:20 | disposition home or self-care (01) ==
LOC: EC 12:21 → 1SOBS 18:08 → 4MS4W 19:05 → 3SCARD 05-21 14:56 → 1SOBS 05-21 21:38
PROVIDERS: ADMIT Family Medicine; ATTEND Family Medicine
DX: R10.13 Epigastric pain (principal); R77.8 Other specified abnormalities of plasma proteins; R11.2 Nausea with vomiting, unspecified; K21.9 Gastro-esophageal reflux disease without esophagitis; R68.83 Chills (without fever); I10 Essential (primary) hypertension; K57.30 Diverticulosis of large intestine without perforation or abscess without bleeding; K44.9 Diaphragmatic hernia without obstruction or gangrene; H91.90 Unspecified hearing loss, unspecified ear; E66.01 Morbid (severe) obesity due to excess calories; Z68.43 Body mass index [BMI] 50.0-59.9, adult; H93.19 Tinnitus, unspecified ear; D17.1 Benign lipomatous neoplasm of skin and subcutaneous tissue of trunk; D72.829 Elevated white blood cell count, unspecified; R20.3 Hyperesthesia; M19.90 Unspecified osteoarthritis, unspecified site; J30.2 Other seasonal allergic rhinitis; Z79.899 Other long term (current) drug therapy; Z88.4 Allergy status to anesthetic agent; Z88.8 Allergy status to other drugs, medicaments and biological substances; Z90.49 Acquired absence of other specified parts of digestive tract; Z98.1 Arthrodesis status; Z80.3 Family history of malignant neoplasm of breast; Z82.5 Family history of asthma and other chronic lower respiratory diseases; Z82.49 Family history of ischemic heart disease and other diseases of the circulatory system; Z82.61 Family history of arthritis
CPT/HCPCS: 96375 ×2; 96376 ×3; 96361; 96374; 99285; 36415; 93005 ×2; 93306; 93458; 80053; 80048 ×3; 82150; 82550; 82553; 83690; 84484 ×2; 85025 ×4; 81003; 80306; 71046; 74177; G0378 ×5; C1760; C1769 ×2; C1894 ×2; J2250; J2765 ×2; J2405; J2001; J3010; C9113 ×4; Q9967 ×2

== ENCOUNTER → 2018-07-12 | Outpatient (CLI) | payer BC ==
--- NOTE | 2018-07-15 16:22 | MM ---
Reason for exam: screening (asymptomatic). Last mammogram was performed 20 years and 6 months ago. History: Patient is postmenopausal and is nulliparous. Family history of premenopausal breast cancer in mother. MG Screening Mammo w CAD Bilateral CC and MLO view(s) were taken. Prior study comparison: January 15, 1998, bilateral diagnostic mammogram. September 01, 1995, screening mammogram. The breast tissue is heterogeneously dense. This may lower the sensitivity of mammography. There is a 4 mm group of linear calcification in the central upper right breast at middle depth. Tight upper outer quadrant focal asymmetry similar to the prior , although spot compression views are recommended. ASSESSMENT: Incomplete: need additional imaging evaluation, BI-RAD 0 RECOMMENDATION: Special view mammogram of the right breast.
== END | disposition home or self-care (01) ==
LOC: RADMAMWWP 16:30
PROVIDERS: ATTEND Family Medicine
DX: Z12.31 Encounter for screening mammogram for malignant neoplasm of breast (principal)
CPT/HCPCS: 77067

== ENCOUNTER → 2018-07-29 | Outpatient (CLI) | payer BC ==
--- NOTE | 2018-07-30 11:31 | MM ---
Reason for exam: additional evaluation requested from abnormal screening. Last mammogram was performed 1 month ago. History: Patient is postmenopausal and is nulliparous. Family history of premenopausal breast cancer in mother. Physical Findings: Nurse did not find any significant physical abnormalities on exam. MG 3D Work Up W/Cad RT Spot compression CC, spot compression MLO, ML, CC with magnification, and ML with magnification view(s) were taken of the right breast. Prior study comparison: July 12, 2018, bilateral MG screening mammo w CAD. The breast tissue is heterogeneously dense. This may lower the sensitivity of mammography. Finding: There are intermediate concern, suspicious coarse heterogeneous, grouped/clustered calcifications in the upper outer quadrant of the right breast 8cm from the nipple. There is no discrete abnormality at upper outer quadrant distortion under compression. These results were verbally communicated with the patient and result sheet given to the patient on 07/29/18. ASSESSMENT: Suspicious, BI-RAD 4 RECOMMENDATION: Stereotactic core biopsy of the right breast. Called Dr. Alejandro with mammographic findings and has scheduled an appointment for the patient for 08/05/18 at 4:[address] Barksdale. PRELIMINARY REPORT CALLED AND FAXED TO DR. BARKSDALE ON 07/30/18.
== END ==
LOC: RADMAMWWP 14:53
PROVIDERS: ATTEND Family Medicine
DX: R92.8 Other abnormal and inconclusive findings on diagnostic imaging of breast (principal)
CPT/HCPCS: 77061; 77065

== ENCOUNTER → 2018-08-17 | Day surgery (SDC) | payer BC ==
[2018-08-17 09:46] VITALS: RESP 12
[2018-08-17 10:53] VITALS: BP 141/85; PULSE 76; TEMP 97.6
--- NOTE | 2018-08-17 11:33 | MM ---
EXAMINATION TYPE: MG stereo VAD BX RT DATE OF EXAM: 08/17/2018 COMPARISON: 07/29/2018 CLINICAL HISTORY: Indeterminate right breast calcifications. TECHNIQUE: Stereotactic guided core biopsy of right breast. FINDINGS: The procedure of stereotactic guided core biopsy was explained to the patient. Benefits, alternatives, and risks were discussed. An informed consent was then obtained. Preprocedural timeout was performed. The shortness pathway for biopsy was chosen. Shortness pathway was craniocaudal from above approach. 10 cc of lidocaine without epinephrine was utilized to incise the skin surface and subcutaneous tissues. After advancing the needle to the appropriate depth prefire images confirmed appropriate needle placement. Additional 10 cc of lidocaine with epinephrine was utilized to anesthetize the site of biopsy after firing the biopsy gun. A vacuum assisted biopsy gun was used to obtain 7 core samples. The patient tolerated the procedure well without any immediate complication. The patient was kept in the radiology department for short stay after the procedure and then discharged home in stable condition. Targeted calcifications are identified in specimen mammogram. Post biopsy mammogram shows the top hat biopsy marker to appear in satisfactory position relative to the targeted area of concern on the preprocedure images. IMPRESSION: SUCCESSFUL, UNCOMPLICATED STEREOTACTIC GUIDED CORE BIOPSY OF THE 4 MM NEAR GROUP OF HETEROGENEOUSLY DENSE LINEAR CALCIFICATIONS IN THE UPPER INNER QUADRANT , FULL PATHOLOGY RESULTS TO FOLLOW. Pathology Results: Benign RIGHT BREAST, STEREOTACTIC CORE BIOPSY: Fibroadenomatoid hyperplasia with calcifications and background fibrocystic changes. Recommendation Follow up mammogram of the right breast in 6 months. SHAHEED
== END ==
LOC: RADMAMWWP 09:10
PROVIDERS: ATTEND Surgery
DX: D24.1 Benign neoplasm of right breast (principal)
CPT/HCPCS: 88305; 19081; A4648; J2001

== ENCOUNTER → 2019-02-07 | Outpatient (CLI) | payer BC ==
--- NOTE | 2019-02-08 08:14 | MM ---
Reason for exam: follow-up at short interval from prior study. Last mammogram was performed 6 months ago. History: Patient is postmenopausal and is nulliparous. Family history of premenopausal breast cancer in mother. Benign MG stereo VAD BX RT of the right breast, August 17, 2018. Physical Findings: Nurse did not find any significant physical abnormalities on exam. MG 3D Diag Mammo W/Cad RT CC and MLO view(s) were taken of the right breast. Prior study comparison: July 29, 2018, right breast MG 3d work up w/cad RT. July 12, 2018, bilateral MG screening mammo w CAD. The breast tissue is heterogeneously dense. This may lower the sensitivity of mammography. Stable benign calcifications. Previous mammotome biopsy in the right breast. There is no discrete abnormality. No significant new findings when compared with previous films. These results were verbally communicated with the patient and result sheet given to the patient on 02/07/19. ASSESSMENT: Benign, BI-RAD 2 RECOMMENDATION: Return to routine screening mammogram schedule for both breasts. Back on schedule.
== END | disposition home or self-care (01) ==
LOC: RADMAMWWP 15:21
PROVIDERS: ATTEND Surgery
DX: R92.8 Other abnormal and inconclusive findings on diagnostic imaging of breast (principal)
CPT/HCPCS: 77061; 77065

== ENCOUNTER → 2020-02-02 | Outpatient (CLI) | payer BC ==
--- NOTE | 2020-02-06 13:59 | MM ---
Reason for exam: screening (asymptomatic). Last mammogram was performed 1 year ago. History: Patient is postmenopausal and is nulliparous. Family history of premenopausal breast cancer in mother. Benign MG stereo VAD BX RT of the right breast, August 17, 2018. Physical Findings: A clinical breast exam by your physician is recommended on an annual basis and results should be correlated with mammographic findings. MG 3D Screening Mammo W/Cad Bilateral CC and MLO view(s) were taken. Prior study comparison: February 07, 2019, right breast MG 3d diag mammo w/cad RT. July 12, 2018, bilateral MG screening mammo w CAD. The breast tissue is heterogeneously dense. This may lower the sensitivity of mammography. There are benign appearing round dystrophic calcifications in the right breast. There is chronic nodularity in the left breast. Asymmetric breast tissue in the left breast, stable. There is no discrete abnormality. ASSESSMENT: Benign, BI-RAD 2 RECOMMENDATION: Routine screening mammogram of both breasts in 1 year.
== END | disposition home or self-care (01) ==
LOC: RADMAMWWP 08:10
PROVIDERS: ATTEND Family Medicine
DX: Z12.31 Encounter for screening mammogram for malignant neoplasm of breast (principal); Z80.3 Family history of malignant neoplasm of breast
CPT/HCPCS: 77063; 77067

== ENCOUNTER → 2020-11-27 | Outpatient (CLI) | payer BC ==
[2020-11-27 16:21] LABS: Appearance,Urine Clear (Clear); Bilirubin,Urine Negative (Negative); Blood,Urine Negative (Negative); Color,Urine Yellow; Glucose,Urine (UA) Negative (Negative); HCT 41.4 % (34.0-46.0); Ketones,Urine Negative (Negative); Leukocyte Esterase,Urine Trace (Negative); MCH 30.2 pg (25.0-35.0); MCHC 33.9 g/dL (31.0-37.0); Mean Platelet Volume 7.1; Mucus,Urine Rare /hpf; Nitrite,Urine Negative (Negative); PH, Urine 5.5 (5.0-8.0); Platelet Count 212 k/uL (150-450); Protein,Urine Negative (Negative); RBC 4.64 m/uL (3.80-5.40); RBC,Urine <1 /hpf (0-5); RDW 13.5 % (11.5-15.5); Specific Gravity,Urine 1.027 (1.001-1.035); Squamous Epithelial Cell,Urine 1 /hpf (0-4); Urobilinogen,Urine <2.0 mg/dL (<2.0); WBC 9.4 k/uL (3.8-10.6); WBC,Urine 1 /hpf (0-5)
[2020-11-27 16:33] LABS: INR 0.9 (<1.2); Partial Thromboplastin Time 22.5 sec (22.0-30.0); Prothrombin Time 10.2 sec (9.0-12.0)
[2020-11-27 16:35] LABS: Albumin 4.4 g/dL (3.5-5.0); Calcium 9.7 mg/dL (8.4-10.2); Potassium 4.3 mmol/L (3.5-5.1); Total Bilirubin 0.4 mg/dL (0.2-1.3); Total Protein 7.3 g/dL (6.3-8.2)
== END | disposition home or self-care (01) ==
LOC: LABPAT 15:29
PROVIDERS: ATTEND Orthopaedic Surgery
DX: Z01.812 Encounter for preprocedural laboratory examination (principal); M17.12 Unilateral primary osteoarthritis, left knee
CPT/HCPCS: 36415; 80053; 81001; 85027; 85610; 85730; 87070

== ENCOUNTER 2020-12-17 10:40 | Observation (INO) | payer BC ==
[2020-12-12 11:26] VITALS: BMI 56.3
[~2020-12-17 10:40] MED LIST changes: +ACETAMINOPHEN TAB 500 MG TAB PO PRN; +GABAPENTIN 300 MG CAP PO PRN; +MELOXICAM 7.5 MG TAB PO PRN; +MIDAZOLAM 2 MG/2 ML VIAL IV PRN; -ONDANSETRON 4 MG/2 ML VIAL IVP ONE; -Pre Op ABX Message 1 EACH MISC MISCELLANE ONE; +ROPIVACAINE/EPI/CLONIDINE/KET 50 ML SYRINGE MISCELLANE PRN; +TRANEXAMIC ACID 1,000 MG in SODIUM CHLORIDE 0.9% 100 ML IVPB PRN; +ceFAZolin 3 GM in SODIUM CHLORIDE 0.9% 100 ML IVPB PRN
[2020-12-17] MEDS: LACTATED RINGERS 1,000 ML IV SCH ×2 (11:56→16:47)
[2020-12-17] MEDS: ONDANSETRON 4 MG/2 ML VIAL IVP ONE ×2 (12:00→12:15)
[2020-12-17] MEDS: DEXAMETHASONE SOD PHOSPHATE 4 MG/ML 1 ML VIAL IV ONE ×2 (12:00→12:15)
[2020-12-17] MEDS ORDERED: HYDROmorphone 0.5 MG/0.5 ML SYRINGE IVP PRN (12:05)
[2020-12-17] MEDS ORDERED: HYDROmorphone 0.2 MG/1 ML SYRINGE IVP PRN (12:05)
[2020-12-17] MEDS ORDERED: NALOXONE 0.4 MG/ML 1 ML VIAL IV PRN ×2 (12:05→14:55)
[2020-12-17] MEDS ORDERED: ONDANSETRON 4 MG/2 ML VIAL IVP PRN (12:05)
[2020-12-17] MEDS ORDERED: HYDROcodone/APAP 7.5-325MG 1 EACH TAB PO PRN ×2 (12:07)
[2020-12-17] MEDS ORDERED: NEOSTIGMINE 1 MG/ML 10 ML VIAL ONE (12:34)
[2020-12-17] MEDS ORDERED: TRANEXAMIC ACID 1,000 MG/10 ML VIAL ONE (12:34)
[2020-12-17] MEDS ORDERED: fentaNYL (PF) 50 MCG/ML 2 ML AMP ONE (12:34)
[2020-12-17] MEDS ORDERED: HYDROmorphone (PF) 1 MG/ML ONE (12:34)
[2020-12-17] MEDS ORDERED: SUCCINYLCHOLINE CHLORIDE VIAL 200 MG/10 ML VIAL IV ONE (12:34)
[2020-12-17] MEDS ORDERED: ROCURONIUM 10 MG/ML (5 ML VIAL) IV ONE (12:34)
[2020-12-17] MEDS ORDERED: PROPOFOL 10 MG/ML 20 ML VIAL IV ONE (12:34)
[2020-12-17] MEDS ORDERED: SODIUM CHLORIDE 0.9% 100 ML BAG ONE (12:34)
[2020-12-17] MEDS ORDERED: LIDOCAINE 1% INJ 10MG/ML (20 ML MDV) ONE (12:34)
[2020-12-17] MEDS ORDERED: MIDAZOLAM 2 MG/2 ML VIAL ONE (12:34)
[2020-12-17] MEDS ORDERED: GLYCOPYRROLATE 0.2 MG/ML 2 ML VIAL ONE (12:34)
[2020-12-17] MEDS ORDERED: ceFAZolin 3,000 MG in SODIUM CHLORIDE 0.9% IRRIGATIO 3,000 ML IRRIGATION ONE (13:04)
--- NOTE | 2020-12-17 14:18 | P.OP ---
Date of Procedure: 12/17/20 Preoperative Diagnosis: Severe osteoarthritis left knee Postoperative Diagnosis: Severe osteoarthritis left knee Procedure(s) Performed: Left total knee arthroplasty Implants: [employer] II CR Oxinium cruciate retaining femoral component size 5, left [employer] nonporous tibial baseplate size 3, left [employer] II, XLPE Deep Dished articular insert, size 10 mm, Size 3-4, left [employer] Syl II resurfacing patellar component, oval, 29 mm All components were cemented using Palacos R bone cement The articulation is Oxinium on polyethylene Anesthesia: [facility]GO[facility] Surgeon: Prince Nevarez Paraprofessional Aide Teacher #1: Liliya Cordon Estimated Blood Loss (ml): 50 Pathology: other (Bone and cartilage) Condition: stable Disposition: PACU Indications for Procedure: After failure of conservative treatment we discussed the surgical and nonsurgical treatment options at length. Patient wishes to proceed with a total knee arthroplasty. Complications specific to this procedure were discussed at length, including but not limited to infection, bleeding, stiffness, and nerve injury. Covid-19 was also discussed at length with the patient, and they are aware of the current policies and procedures. The patient was given the option of delaying surgery, but they elect to proceed knowing these risks. Patient is aware of all these complications and informed consent was obtained Operative Findings: The operative findings are consistent with severe osteoarthritis of the left knee Description of Procedure: Patient was seen in the preoperative area and the consent was reviewed and the operative site was marked with a skin marker. The patient verified the procedure and the operative site. The patient was then brought to the operating room and given preoperative antibiotics intravenously. A gram of transexamic acid was given intravenously. A general anesthetic was administered by the anesthesia department. A tourniquet was placed on the upper thigh and the lower extremity was prepped with chlorhexidine and draped in usual sterile fashion. A universal timeout was then performed which confirmed the patient's name, surgical site, ALLERGIES, and consent. The lower extremity was then exsanguinated and tourniquet was inflated to 250 mmHg. A standard anterior midline approach to the knee was performed. The skin and subcutaneous tissue were sharply dissected down to the patellar tendon. A medial parapatellar arthrotomy was then performed. The knee was then extended, the patellar was everted, and the knee was again flexed. The infra-patellar fat pad was removed in order to enhance exposure. The anterior horns of both menisci were excised, and a release was performed to the posterior medial aspect of the knee. On gross visual inspection, there was complete loss of articular cartilage in the medial and patellofemoral joint spaces. There was also significant cartilage damage in the lateral compartment. There were multiple periarticular osteophytes globally about the knee which were then removed with a Ronguer. The femoral canal was then opened with the 9.5 mm intramedullary drill. The 8 mm intramedullary lori was then inserted into the femoral canal with the distal femoral cutting guide set for 5 of valgus. The distal femoral cutting block was then pinned in place. The intramedullary lori was then removed, and the distal femur was then cut. The cutting block was then removed and the cut was checked for symmetry. The resected bone was then measured to confirm the appropriate distal femoral resection. Next, the sizing guide was then placed and set for 3 external rotation based off of the epicondylar axis and Whitesides line. Pins were then placed and the drill holes, and the femur was sized with the sizing stylus. The pins were then removed, and the sizing guide was then removed. The spikes of the femoral block was then placed into the predrilled holes, and malleted into place. Two 45 mm pins were then placed into the fixation holes on the cutting block. An micah wing was then used to ensure there would be no notching with the anterior cut. The anterior condyles were cut without notching. The anterior chord cut was then performed, followed by the posterior cut, posterior chamfer cut, and the anterior chamfer cut. The collateral ligaments were protected during the entire process. The cutting block was then removed. Any remaining bone and osteophytes were removed from the femur with a Rominger. The femoral canal was plugged with autologous bone. Attention was then directed to the tibia. The remaining ACL was removed with a Ronguer, and the tibia was then gently subluxed forward with a large bent knee retractor. Any remaining menisci were excised. The posterior lateral corner was cauterized in order to coagulate the lateral geniculate artery. The extra medullary tibial cutting guide was then placed, set for the appropriate rotation, slope, and depth of resection. The proximal tibia cutting guide was then pinned in place. Proximal tibia was then cut and sized. The femoral trial was placed. A narrow saw blade was then used to remove the anterior intracondylar femoral bone. The CR notch trial was then placed. The tibial trial was placed with the appropriate-sized insert. The knee was able to fully extend and flex to 130 and was stable throughout all range of motion. The knee was then extended and the patella was everted. Patella was then measured, and then using an osteotomy guide, the patella was cut at the appropriate level. The patella was then measured and drilled and the patella trial was then placed. The knee was then taken through range of motion with the patella trial and the patella tracked normally using the no thumbs technique.. The knee was then extended patella trial was then removed and the patella was everted. Knee was then flexed and lug holes were drilled through the femoral trial and the femoral trial was then removed. The tibial was then re-exposed, and the tibial broach guide was then pinned in place after it was set for the appropriate rotation to allow for the most coverage without overhang. The tibia was then reamed and broached. The cut surfaces of bone were then irrigated with pulsatile lavage. The knee was also irrigated with Irrisept solution. The components were then opened, the cement was mixed, and the components were then cemented in place. The cement was allowed to harden with the knee in full extension. After the cemented hardened. The tourniquet was released, and hemostasis was obtained. A second gram of transexamic acid was given intravenously. The knee was again irrigated. The knee was again taken through range of motion and found to be stable thro ughout all range of motion of 0-130, and the patella tracked normally. The fascia was then closed with 0 Vicryl followed by #2 strata fix suture. The subcutaneous tissue was closed with 3-0 Vicryl and 3-0 strata fix. Exofin glue was used for the skin and placed with the knee in flexion. After the glue had dried, and Optafoam silver impregnated dressing was applied. The patient was then transferred to recovery room in stable condition. The asset protection assistant AYLIN Mcfarland was required due the complexity surgery and the need for a skilled surgical services director. She assisted in positioning, draping, retraction, and closure of the wound.
[2020-12-17] MEDS: HYDROmorphone 0.5 MG/0.5 ML SYRINGE IVP PRN ×4 (14:43→16:31)
[2020-12-17] MEDS ORDERED: NA PHOS,M-B/NA PHOS,DI-BA 133 ML ENEMA RECTAL PRN (14:55)
[2020-12-17] MEDS ORDERED: bisacodyL 10 MG SUPP RECTAL PRN (14:55)
[2020-12-17] MEDS ORDERED: MAGNESIUM HYDROXIDE 2,400 MG/10 ML CUP PO PRN (14:55)
--- NOTE | 2020-12-17 15:15 | XR ---
Left knee Limited HISTORY: Status post left knee arthroplasty 2 views of left knee Patient is status post left knee arthroplasty. There is anatomic alignment, lateral view somewhat venegas ited, obliquely oriented. Lucency is present within the soft tissues. Difficult to exclude loose bodi es. IMPRESSION: Orthopedic follow-up as described.
[2020-12-17] MEDS: HYDROmorphone 1 MG/ML 1 ML SYRINGE IVP PRN ×2 (17:41→21:04)
[2020-12-17] MEDS: SODIUM CHLORIDE 0.9% 1,000 ML IV SCH (18:24)
[2020-12-17] MEDS ORDERED: SENNOSIDES-DOCUSATE SODIUM 1 EACH TAB PO SCH (21:00)
[2020-12-17] MEDS ORDERED: ceFAZolin 3 GM in SODIUM CHLORIDE 0.9% 100 ML IVPB SCH (21:00)
[2020-12-17] MEDS: ASPIRIN 325 MG TAB PO SCH (21:03)
[2020-12-17] MEDS: hydrOXYzine pamoate 25 MG CAP PO PRN (21:12)
[2020-12-18] MEDS: HYDROmorphone 1 MG/ML 1 ML SYRINGE IVP PRN ×2 (00:20→04:54)
[2020-12-18] MEDS: SODIUM CHLORIDE 0.9% 1,000 ML IV SCH (05:22)
[2020-12-18] MEDS: ASPIRIN 325 MG TAB PO SCH (08:12)
[2020-12-18 08:37] VITALS: BP 134/85; PULSE 84; RESP 18; TEMP 97.6
--- NOTE | 2020-12-18 08:41 | P.DS ---
Providers Date of admission: 12/18/20 06:01 Expected date of discharge: 12/18/20 Attending physician: Prince Nevarez Consults: 12/17/20 14:55 Consult Physician Routine Consulting Provider: Dawood Alejandro Consult Reason/Comments: medical management if patient does not dc home same day. Do you want consulting provider notified?: Yes Primary care physician: Dawood Alejandro - Discharge Diagnosis(es) (1) Osteoarthritis of left knee Current Visit: Yes Status: Acute (2) Status post total left knee replacement Current Visit: Yes Status: Acute Hospital Course: This is a 60-year-old female with known history of degenerative arthritis of the left knee. The patient presented for evaluation as an outpatient. After discussion and consideration patient elects to proceed with total knee arthroplasty. The patient is seen preoperatively by Dr. Nevarez and medically cleared for surgery by their primary care physician. Patient is admitted to [facility] on 12/17/2020 for total knee arthroplasty. The procedure is performed without complication or sequelae. The patient is doing well postoperatively. Labs and vital signs are stable on day of discharge. On day of discharge patient's knee incision is healing well. There is minimal erythema. There is no drainage noted at this time. There is minimal soft tissue swelling to the knee. Patient has full foot and ankle motion without difficulty or pain. Calf is soft and nontender to palpation. Neurovascular status to the left lower extremity is intact. Patient is discharged home in good condition. Opioid start talking form is reviewed and signed. Please see med rec for accurate list of home medications. Plan - Discharge Summary Discharge Rx Participant: Yes New Discharge Prescriptions: New Aspirin 325 mg PO BID #60 tab HYDROcodone/APAP 7.5-325MG [[place] 7.5-325] 1 - 2 tab PO Q6H PRN #32 tab PRN Reason: Pain Sennosides [Senokot] 2 tab PO DAILY PRN #60 tablet PRN Reason: Constipation Ondansetron Odt [Zofran Odt] 1 tab PO Q8HR PRN #10 tab PRN Reason: Nausea No Action Sertraline [Zoloft] 50 mg PO DAILY Losartan [Cozaar] 50 mg PO DAILY Furosemide [Lasix] 20 mg PO SUTUTHSA Celecoxib [CeleBREX] 200 mg PO DAILY Montelukast Sodium [Singulair] 10 mg PO DAILY Furosemide [Lasix] 40 mg PO MOWEFR Discharge Medication List Furosemide [Lasix] 20 mg PO SUTUTHSA 03/13/16 [History] Losartan [Cozaar] 50 mg PO DAILY 03/13/16 [History] Sertraline [Zoloft] 50 mg PO DAILY 03/13/16 [History] Celecoxib [CeleBREX] 200 mg PO DAILY 12/12/20 [History] Furosemide [Lasix] 40 mg PO MOWEFR 12/12/20 [History] Montelukast Sodium [Singulair] 10 mg PO DAILY 12/12/20 [History] Aspirin 325 mg PO BID #60 tab 12/17/20 [Rx] HYDROcodone/APAP 7.5-325MG [[place] 7.5-325] 1 - 2 tab PO Q6H PRN #32 tab 12/17/20 [Rx] Ondansetron Odt [Zofran Odt] 1 tab PO Q8HR PRN #10 tab 12/17/20 [Rx] Sennosides [Senokot] 2 tab PO DAILY PRN #60 tablet 12/17/20 [Rx] Follow up Appointment(s)/Referral(s): [facility], [NON-STAFF] - ([facility] will call to arrange the time for your first home visit on 12/18/20.) Prince Nevarez DO [Doctor of Osteopathic Medicine] - 2 Weeks Activity/Diet/Wound Care/Special Instructions: Weightbearing as tolerated with walker. Leave dressing intact. Dressing may be removed by home care nurse or by patient 7 days postoperatively. After removal of initial surgical dressing, please apply a clean dressing twice daily until follow-up. May shower with initial surgical dressing on and after removal. Please take aspirin 325 mg twice daily for 30 days to prevent blood clots. Please wear compression stockings during the day until follow-up appointment to help prevent blood clots. May remove at night. Follow-up with [facility] in 2 weeks, please call with any questions or concerns [phone] Discharge Disposition: HOME WITH HOME HEALTH SERVICES
[2020-12-18 09:09] LABS: Basophils # (A) 0.03 X 10*3/uL (0.00-0.10); Basophils % (A) 0.2 %; Eosinophils # (A) 0 X 10*3/uL (0.04-0.35); Eosinophils % (A) 0 %; HCT 39.6 % (37.2-46.3); HGB 12.5 g/dL (12.0-15.0); Lymphocytes # (A) 1.05 X 10*3/uL (0.90-5.00); Lymphocytes % (A) 7.6 %; MCH 29.1 pg (27.0-32.0); MCHC 31.6 g/dL (32.0-37.0); MCV 92.1 fL (80.0-97.0); Mean Platelet Volume 10.7 fL (9.5-12.2); Monocytes # (A) 1.25 X 10*3/uL (0.20-1.00); Neutrophils # (A) 11.52 X 10*3/uL (1.80-7.70); Neutrophils % (A) 82.9 %; Platelet Count 234 X 10*3/uL (140-440); RDW 13.8 % (11.5-14.5); WBC 13.89 X 10*3/uL (4.50-10.00)
[2020-12-18] MEDS ORDERED: PANTOPRAZOLE 40 MG/10 ML VIAL IVP SCH (09:45)
[2020-12-18] MEDS ORDERED: LOSARTAN 50 MG TAB PO SCH (09:45)
--- NOTE | 2020-12-18 09:47 | P.CONS ---
History of Present Illness - Reason for Consult Consult date: 12/18/20 Medical management gastroesophageal reflux disease, hypertension Requesting physician: Prince Nevarez - Chief Complaint Left Knee OA, S/P total left knee replacement - History of Present Illness This is a 60-year-old female with medical history of morbid obesity, left knee osteoarthritis, gastroesophageal reflux disease, hypertension, depression and multiple other medical issues, status post total left knee replacement. Tolerated procedure well. Ambulating to bathroom this a.m., up in chair earlier, tolerated exertion well. PT pending. Passing flatus, no bowel movement. Denies nausea vomiting or diarrhea. Denies lightheadedness dizziness or focal deficits. Denies chest pain, palpitations or shortness of breath. Afebrile, vital signs stable, maintaining O2 sats in the 90s on room air. Review of Systems ROS Statement: Those systems with pertinent positive or pertinent negative responses have been documented in the HPI. ROS Other: All systems not noted in ROS Statement are negative. 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 s easonal allergies, TINNITUS. 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 right ankle fusion, lipoma removed back, abscess lymph node removed from neck, left knee replacement November 2020. Past Anesthesia/Blood Transfusion Reactions: No Reported Reaction Past Psychological History: No Psychological Hx Reported Additional Psychological History / Comment(s): Pt resides with her spouse and 2 children, one of which is over the age of 18yrs.6 cats, 1 dog She is using walker since recent foot sx Smoking Status: Never smoker, Second hand smoke exposure Past Alcohol Use History: Rare Past Drug Use History: None Reported - Past Family History Mother Family Medical History: Cancer Additional Family Medical History / Comment(s): Breast cancer Father Family Medical History: Congestive Heart Failure (CHF), COPD, Osteoarthritis (OA) Medications and Allergies Home Medications Medication Instructions Recorded Confirmed Type Furosemide [Lasix] 20 mg PO SUTUTHSA 03/13/12/17/20 History Losartan [Cozaar] 50 mg PO DAILY 03/13/16 12/17/20 History Sertraline [Zoloft] 50 mg PO DAILY 03/13/16 12/17/20 History Celecoxib [CeleBREX] 200 mg PO DAILY 12/12/20 12/17/20 History Furosemide [Lasix] 40 mg PO MOWEFR 12/12/20 12/17/20 History Montelukast Sodium [Singulair] 10 mg PO DAILY 12/12/20 12/17/20 History Aspirin 325 mg PO BID #60 tab 12/17/20 Rx HYDROcodone/APAP 7.5-325MG [[place] 1 - 2 tab PO Q6H PRN #32 tab 12/17/20 Rx 7.5-325] Ondansetron Odt [Zofran Odt] 1 tab PO Q8HR PRN #10 tab 12/17/20 Rx Sennosides [Senokot] 2 tab PO DAILY PRN #60 tablet 12/17/20 Rx Allergies Allergy/AdvReac Type Severity Reaction Status Date / Time pilocarpine HCl Allergy Itching Verified 12/17/20 11:23 [From Salagen] bupivacaine HCl AdvReac Swelling Verified 12/17/20 11:23 [From Marcaine] AFTER INJECTION IN KNEE naproxen [From Naprosyn] AdvReac fluid Verified 12/17/20 11:23 retention Physical Exam Vitals: Vital Signs Temp Pulse Resp BP Pulse Ox 12/18/20 08:00 97.6 F 84 18 134/85 95 12/18/20 02:00 97.7 F 75 106/71 96 12/17/20 20:00 16 12/17/20 19:06 100 12/17/20 19:00 80 130/84 98 12/17/20 18:50 85 127/77 100 12/17/20 18:30 87 123/73 99 12/17/20 18:15 86 98/72 96 12/17/20 18:00 86 127/84 95 12/17/20 17:45 84 122/81 94 L 12/17/20 17:30 68 138/82 99 12/17/20 17:15 83 128/84 98 12/17/20 17:00 77 108/72 97 12/17/20 16:30 72 16 130/70 97 12/17/20 16:00 71 16 127/69 94 L 12/17/20 15:45 80 16 124/60 94 L 12/17/20 15:30 71 16 118/58 95 12/17/20 15:15 64 14 128/60 96 12/17/20 15:00 65 18 118/59 95 12/17/20 14:45 64 16 153/70 97 12/17/20 14:34 97.3 F L 73 16 163/73 100 12/17/20 11:10 98.5 F 71 16 155/79 98 Intake and Output 12/17/20 12/18/20 12/18/20 22:59 06:59 14:59 Intake Total 440 Balance 440 Intake: Oral 440 Other: # Voids 1 2 Weight 145.3 kg PHYSICAL EXAM: VITAL SIGNS: [As above] GENERAL: Sitting up in bed, no acute distress HEENT: Conjunctivae normal. eyes normal. Oral mucosa moist NECK: No JVD. No thyroid enlargement. No LNs CARDIOVASCULAR: S1, S2 regular. Systolic murmur. RESPIRATION: Breath sounds diminished in the bases. No rhonchi or crackles. No bronchial breathing. ABDOMEN: Soft, nontender . No guarding. no masses palpable. No ascites, No hepatosplenomegaly.Bowel sounds heard. EXTREMITIES: Left leg dressing clean dry and intact with ice pack on, mild edema, no calf pain, positive DP pulse. PSYCHIATRY: Alert and oriented X3, mood and affect normal. NERVOUS SYSTEM: Cranial N 2-12 grossly normal. Moves all 4 limbs. Diffuse weakness No focal deficits. Strength and sensation grossly intact.. Skin: Warm and dry, no rash Lymphatic system. No LN neck axilla. Results CBC & Chem 7: 12/18/20 06:04 Labs: Abnormal Lab Results - Last 24 Hours (Table) 12/18/20 Range/Units 06:04 WBC 13.89 H (4.50-10.00) X 10*3/uL MCHC 31.6 L (32.0-37.0) g/dL Neutrophils # 11.52 H (1.80-7.70) X 10*3/uL Monocytes # 1.25 H (0.20-1.00) X 10*3/uL Eosinophils # 0 L (0.04-0.35) X 10*3/uL Assessment and Plan Assessment: Left knee osteoarthritis, status post total left knee replacement Morbid obesity, BMI 56.7 Hypertension Gastroesophageal reflux disease Depression Plan: Continue on current medication regime ,monitoring and symptomatic treatment. Anticoagulation/pain management as per primary. PT. Aggressive pulmonary toileting with incentive spirometer reinforced. Protonix ordered for GI prophylaxis. Follow up with PCP, Dr. Alejandro in 1 week after discharge. Thank you Dr. Nevarez for the consult. The impression and plan of care has been dictated as directed. : I performed a history and examination of this patient, discussed the same with the dictator. I agree with the dictator's note ,documented as a scribe. Any additional findings or plans will be noted.
[2020-12-18] MEDS: hydrOXYzine pamoate 25 MG CAP PO PRN (10:02)
[2020-12-18] MEDS ORDERED: MONTELUKAST 10 MG TAB PO SCH (21:00)
[2020-12-19] MEDS ORDERED: SERTRALINE 50 MG TAB PO SCH (09:00)
[2020-12-19] MEDS ORDERED: FUROSEMIDE 40 MG TAB PO SCH (09:37)
== END 2020-12-18 12:55 | disposition home health service (06) ==
LOC: OR 10:40 → 4SSUR 16:31 → OR 12-18 06:01 → 4SSUR 12-18 06:01
PROVIDERS: ADMIT Orthopaedic Surgery; ATTEND Orthopaedic Surgery
DX: M17.12 Unilateral primary osteoarthritis, left knee (principal); K21.9 Gastro-esophageal reflux disease without esophagitis; I10 Essential (primary) hypertension; E66.01 Morbid (severe) obesity due to excess calories; Z68.43 Body mass index [BMI] 50.0-59.9, adult; F32.9 Major depressive disorder, single episode, unspecified; H91.90 Unspecified hearing loss, unspecified ear; H93.19 Tinnitus, unspecified ear; J30.2 Other seasonal allergic rhinitis; D17.9 Benign lipomatous neoplasm, unspecified; Q63.8 Other specified congenital malformations of kidney; R60.9 Edema, unspecified; Z77.22 Contact with and (suspected) exposure to environmental tobacco smoke (acute) (chronic); Z90.49 Acquired absence of other specified parts of digestive tract; Z98.1 Arthrodesis status; Z79.899 Other long term (current) drug therapy; Z79.1 Long term (current) use of non-steroidal anti-inflammatories (NSAID); Z79.82 Long term (current) use of aspirin; Z88.8 Allergy status to other drugs, medicaments and biological substances; Z88.6 Allergy status to analgesic agent; Z80.3 Family history of malignant neoplasm of breast; Z82.49 Family history of ischemic heart disease and other diseases of the circulatory system; Z82.5 Family history of asthma and other chronic lower respiratory diseases; Z82.61 Family history of arthritis
CPT/HCPCS: 27447; 94760; 97161; 85025; 88300; 73560; G0378; C1713; C1776; J2250; J0330; J1100; J2710; J0690 ×2; J2405; J2001; J3010; J1170 ×3; J2704; C9113

== ENCOUNTER → 2021-08-05 | Outpatient (CLI) | payer BC ==
--- NOTE | 2021-08-06 08:27 | MM ---
Reason for exam: screening (asymptomatic). Last mammogram was performed 1 year and 6 months ago. History: Patient is postmenopausal and is nulliparous. Family history of premenopausal breast cancer in mother. Benign MG stereo VAD BX RT of the right breast, August 17, 2018. Physical Findings: A clinical breast exam by your physician is recommended on an annual basis and results should be correlated with mammographic findings. MG 3D Screening Mammo W/Cad Bilateral CC and MLO view(s) were taken. XCCL view(s) were taken of the right breast. Prior study comparison: February 02, 2020, bilateral MG 3d screening mammo w/cad. February 07, 2019, right breast MG 3d diag mammo w/cad RT. The breast tissue is heterogeneously dense. This may lower the sensitivity of mammography. There are benign appearing round dystrophic calcifications bilaterally. There is no discrete abnormality. ASSESSMENT: Benign, BI-RAD 2 RECOMMENDATION: Routine screening mammogram of both breasts in 1 year.
== END | disposition home or self-care (01) ==
LOC: RADMAMWWP 15:56
PROVIDERS: ATTEND Obstetrics & Gynecology
DX: Z12.31 Encounter for screening mammogram for malignant neoplasm of breast (principal)
CPT/HCPCS: 77063; 77067

== ENCOUNTER 2022-01-20 06:57 | Emergency (ER) | payer BC ==
[2022-01-20] MEDS ORDERED: HYDROcodone/APAP 7.5-325MG 1 EACH TAB PO ONE (07:17)
--- NOTE | 2022-01-20 08:22 | XR ---
Chest x-ray with left RIBS HISTORY: Pain for one week Frontal view of the chest, 4 views the left ribs submitted, correlation prior chest x-ray 05/19/2018 The cardiomediastinal silhouette is stable, there is no evident pneumothorax or pleural effusion. No evident displaced rib fracture. Bone mineralization is maintained. No evident airspace disease. Surgi wojciech clips noted in the abdomen. There is thoracic spondylosis. IMPRESSION: No acute abnormality. Bone scan may be of benefit if occult abnormality is suspected clin ically.
[2022-01-20 09:11] VITALS: BP 130/72; PULSE 62; RESP 18; TEMP 98
--- NOTE | 2022-01-20 09:24 | ED ---
General Adult HPI - General Chief complaint: Abdominal Pain Stated complaint: rib pain Time Seen by Provider: 01/20/22 07:06 Source: patient Mode of arrival: ambulatory Limitations: no limitations - History of Present Illness Initial comments: 61-year-old female with past medical history of hypertension, reflux presents to the emergency department with left-sided chest wall pain. States that on Thursday she sneezed and began having intense pain underneath the left breast. Pain is worse with palpation and movement and better with rest. States it o riginally eased up on itself however she woke up this morning and the pain had come back. She takes her Celebrex for arthritis and states it is not helping with her pain. She denies any history of coronary disease. She is Dr. Murillo every 6 months due to valvular disease. No shortness of breath. No lower externally swelling. No history of DVT or PE. No other alleviating, precipitating modifying factors - Related Data Home Medications Medication Instructions Recorded Confirmed Furosemide [Lasix] 20 mg PO SUTUTHSA 03/13/16 12/17/20 Losartan [Cozaar] 50 mg PO DAILY 03/13/16 12/17/20 Sertraline [Zoloft] 50 mg PO DAILY 03/13/16 12/17/20 Celecoxib [CeleBREX] 200 mg PO DAILY 12/12/20 12/17/20 Furosemide [Lasix] 40 mg PO MOWEFR 12/12/20 12/17/20 Montelukast Sodium [Singulair] 10 mg PO DAILY 12/12/20 12/17/20 Previous Rx's Medication Instructions Recorded Aspirin 325 mg PO BID #60 tab 12/17/20 HYDROcodone/APAP 7.5-325MG [[place] 1 - 2 tab PO Q6H PRN #32 tab 12/17/20 7.5-325] Ondansetron Odt [Zofran Odt] 1 tab PO Q8HR PRN #10 tab 12/17/20 Sennosides [Senokot] 2 tab PO DAILY PRN #60 tablet 12/17/20 hydrOXYzine pamoate [Vistaril] 25 mg PO Q8H PRN #30 capsule 12/18/20 HYDROcodone/APAP 7.5-325MG [[place] 1 tab PO Q6HR PRN #12 tab 01/20/22 7.5-325] Lidocaine 5% Patch [Lidoderm] 1 patch TOPICAL DAILY #24 patch 01/20/22 Allergies Allergy/AdvReac Type Severity Reaction Status Date / Time pilocarpine HCl Allergy Itching Verified 01/20/22 06:58 [From [place]agen] bupivacaine HCl AdvReac Swelling Verified 01/20/22 06:58 [From Marcaine] AFTER INJECTION IN KNEE naproxen [From Naprosyn] AdvReac fluid Verified 01/20/22 06:58 retention Review of Systems ROS Statement: Those systems with pertinent positive or pertinent negative responses have been documented in the HPI. ROS Other: All systems not noted in ROS Statement are negative. Past Medical History Past Medical History: GERD/Reflux, Hearing Disorder / Deafness, Hypertension, Musculoskeletal Disorder, Skin Disorder Additional Past Medical History / Comment(s): STRESS TEST 09/2015 - VALVE HAS SL LEAKAGE. SEASONAL ALLERGY. TINNITUS. SL OA. FOLICULITIS SCALP; ATHLETES'S FOOT; LIPOMA RT UPPER BACK. Pt states that she has been cleared from cardio and that it was just a misread image that led to the stress test. History of Any Multi-Drug Resistant Organisms: None Reported Past Surgical History: Cholecystectomy, Tonsillectomy Additional Past Surgical History / Comment(s): RT SHOULDER IMPINGEMENT REPAIR, EXC PART CLAVICLE. right ankle fusion, lipoma removed back, abscess lymph node removed from neck, left knee replacement November 2020. Past Anesthesia/Blood Transfusion Reactions: No Reported Reaction Past Psychological History: No Psychological Hx Reported Smoking Status: Never smoker, Second hand smoke exposure Past Alcohol Use History: Rare Past Drug Use History: None Reported - Past Family History Mother Family Medical History: Cancer Additional Family Medical History / Comment(s): Breast cancer Father Family Medical History: Congestive Heart Failure (CHF), COPD, Osteoarthritis (OA) General Exam Limitations: no limitations General appearance: alert, in no apparent distress Head exam: Present: atraumatic, normocephalic, normal inspection Eye exam: Present: normal appearance, PERRL, EOMI. Absent: scleral icterus, conjunctival injection, periorbital swelling ENT exam: Present: normal exam, mucous membranes moist Neck exam: Present: normal inspection. Absent: tenderness, meningismus, lymphadenopathy Respiratory exam: Present: normal lung sounds bilaterally, chest wall tenderness (left anterior-lateral chest wall beneath left breast). Absent: respiratory distress, wheezes, rales, rhonchi, stridor Cardiovascular Exam: Present: regular rate, normal rhythm, normal heart sounds. Absent: systolic murmur, diastolic murmur, rubs, gallop, clicks GI/Abdominal exam: Present: soft, normal bowel sounds. Absent: distended, tenderness, guarding, rebound, rigid Extremities exam: Present: normal inspection, full ROM, normal capillary refill. Absent: tenderness, pedal edema, joint swelling, calf tenderness Back exam: Present: normal inspection Neurological exam: Present: alert, oriented X3, CN II-XII intact Psychiatric exam: Present: normal affect, normal mood Skin exam: Present: warm, dry, intact, normal color. Absent: rash Course Vital Signs 01/20/22 01/20/22 06:58 09:00 Temperature 98.2 F 98 F Pulse Rate 76 62 Respiratory 16 18 Rate Blood Pressure 187/104 130/72 O2 Sat by Pulse 98 96 Oximetry EKG Findings - EKG Comments: EKG Findings:: EKG demonstrates sinus rhythm with a rate of 60. [place] interval 178. QRS 105. QTC of 44. No acute ST segment elevations. There is ST depression in V2 through V6 which is seen on patient's previous EKGs Medical Decision Making - Medical Decision Making Upon arrival patient was placed into room 19. Thorough history and physical exam was performed. 12-lead EKG was obtained. Patient sent for an x-ray of her left ribs and chest. X-ray reviewed by myself and read by the radiologist as negative for any acute fractures. Results are discussed the patient. She does have an abnormal EKG however this is compared to previous EKGs and is similar morphology. Patient did receive a [place]ide for pain control and does have improvement in her pain. She will be discharged home with Whiteside and Lidoderm patches. Instructed to return for any new or worsening symptoms. Patient agreed and she was discharged home in stable condition Disposition Clinical Impression: Chest wall pain Disposition: HOME SELF-CARE Condition: Stable Instructions (If sedation given, give patient instructions): Chest Wall Pain (ED) Additional Instructions: Take the pain medication as directed. Follow up with your primary care doctor in 2-4 days. Purchase the Aspercreme patches if the lidocaine patches I prescribed are not covered by her insurance. Return for any new or worsening symptoms Prescriptions: Lidocaine 5% Patch [Lidoderm] 1 patch TOPICAL DAILY #24 patch HYDROcodone/APAP 7.5-325MG [[place] 7.5-325] 1 tab PO Q6HR PRN #12 tab PRN Reason: Pain Is patient prescribed a controlled substance at d/c from ED?: Yes When asked, does pt state using other controlled substances?: No If prescribed controlled substance>3 days was MAPS reviewed?: Prescribed <3 Days Referrals: Dawood Alejandro DO [Primary Care Provider] - 1-2 days Time of Disposition: 09:24
== END 2022-01-20 09:33 | disposition home or self-care (01) ==
LOC: EC 06:57
DX: R07.89 Other chest pain (principal); K21.9 Gastro-esophageal reflux disease without esophagitis; I10 Essential (primary) hypertension; Z88.8 Allergy status to other drugs, medicaments and biological substances; Z88.4 Allergy status to anesthetic agent; Z88.6 Allergy status to analgesic agent; Z79.82 Long term (current) use of aspirin; Z79.899 Other long term (current) drug therapy
CPT/HCPCS: 93005; 99285

== ENCOUNTER → 2022-09-23 | Outpatient (CLI) | payer BC ==
--- NOTE | 2022-09-24 09:47 | MM ---
Reason for Exam: Screening (asymptomatic). Last mammogram was performed 1 year(s) and 1 month(s) ago. Patient History: Menarche at age 9. Patient has no children. Postmenopausal. 08/17/2018, Benign Core Biopsy on the right side. Mother had breast cancer. Risk Values: [place] 5 year model risk: 4.0%. NCI Lifetime model risk: 16.2%. Prior Study Comparison: 07/12/2018 Bilateral Screening Mammogram, [facility]. 07/29/2018 Right Diagnostic Mammogram, [facility] 02/07/2019 Right Diagnostic Mammogram, [facility]. 02/02/2020 Bilateral Screening Mammogram, [facility]. 08/05/2021 Bilateral Screening Mammogram, [facility]. Tissue Density: The breast tissue is heterogeneously dense. This may lower the sensitivity of mammography. Findings: Analyzed By CAD. Right breast biopsy clip. There is no suspicious group of microcalcifications or new suspicious mass in either breast. Overall Assessment: Negative, BI-RAD 1 Management: Screening Mammogram of both breasts in 1 year. A clinical breast exam by your physician is recommended on an annual basis and results should be correlated with mammographic findings. [facility] will attempt to contact patient to return for supplemental views and ultrasound if indicated. Electronically signed and approved by: Margarito Meyers DO
== END | disposition home or self-care (01) ==
LOC: RADMAMWWP 09:27
PROVIDERS: ATTEND Obstetrics & Gynecology
DX: Z12.31 Encounter for screening mammogram for malignant neoplasm of breast (principal); Z78.0 Asymptomatic menopausal state; Z80.3 Family history of malignant neoplasm of breast
CPT/HCPCS: 77063; 77067

== ENCOUNTER 2023-07-26 20:38 | Observation (INO) | payer BC ==
[2023-07-26] MEDS ORDERED: SODIUM CHLORIDE 0.9% 500 ML 500 ML IV STA (22:12)
[2023-07-26] MEDS ORDERED: ONDANSETRON ODT 4 MG TAB PO STA (22:12)
--- NOTE | 2023-07-26 22:12 | ED ---
General Adult HPI - General Chief complaint: Nausea/Vomiting/Diarrhea Stated complaint: Vomiting Time Seen by Provider: 07/26/23 22:11 Source: patient Mode of arrival: ambulatory Limitations: no limitations - History of Present Illness Initial comments: 62-year-old female presenting to the ED with a chief complaint of nausea. Patient states since 4 days ago has had intermittent nausea however today since 3 PM has had vomiting with this as well. Also notes some abdominal pain with this. No blood in the stool. Upon reevaluation, patient notes now she is starting to have some chest pain in the middle of her chest. Pain does not radiate. At this time patient denies any urinary symptoms. Patient does note a history of high blood pressure, high c holesterol. She is a non-smoker. Denies shortness of breath. No other complaints at this time. - Related Data Allergies Allergy/AdvReac Type Severity Reaction Status Date / Time No Known Allergies Allergy Verified 07/26/23 21:04 Review of Systems ROS Statement: Those systems with pertinent positive or pertinent negative responses have been documented in the HPI. ROS Other: All systems not noted in ROS Statement are negative. Past Medical History Past Medical History: Hypertension History of Any Multi-Drug Resistant Organisms: None Reported Past Surgical History: No Surgical Hx Reported Past Psychological History: No Psychological Hx Reported Smoking Status: Never smoker Past Alcohol Use History: None Reported Past Drug Use History: None Reported General Exam Limitations: no limitations General appearance: alert, in no apparent distress Eye exam: Present: normal appearance Neck exam: Present: normal inspection Respiratory exam: Present: normal lung sounds bilaterally Cardiovascular Exam: Present: regular rate, normal rhythm GI/Abdominal exam: Present: soft (Obese. Diffuse abdominal tenderness to palpation. No rebound guarding or rigidity.) Neurological exam: Present: alert, oriented X3 Skin exam: Present: warm, dry Course Vital Signs 07/26/23 07/27/23 07/27/23 21:00 02:21 04:22 Temperature 97.6 F 98.1 F Pulse Rate 82 90 91 Respiratory 20 18 18 Rate Blood Pressure 160/93 170/81 168/88 O2 Sat by Pulse 94 L 96 98 Oximetry Medical Decision Making - Medical Decision Making Was pt. sent in by a medical professional or institution (, PA, HAIR ROOTING MACHINE OPERATOR, urgent care, hospital, or retirement...) When possible be specific @ -No Did you speak to anyone other than the patient for history (EMS, parent, family, police, friend...)? What history was obtained from this source @ -No Did you review nursing and triage notes (agree or disagree)? Why? @ -I reviewed and agree with nursing and triage notes Were old charts reviewed (outside hosp., previous admission, EMS record, old EKG, old radiological studies, urgent care reports/EKG's, retirement records)? Report findings @ -No old charts were reviewed Differential Diagnosis (chest pain, altered mental status, abdominal pain women, abdominal pain men, vaginal bleeding, weakness, fever, dyspnea, syncope, headache, dizziness, GI bleed, back pain, seizure, CVA, palpatations, mental health, musculoskeletal)? @ -Differential Abdominal Pain Women: Appendicitis, Cholecystitis, diverticulosis, ischemic bowel, pancreatitis, hepatitis, UTI, gastroenteritis, AAA, incarcerated hernia, bowel obstruction, constipation, inflammatory bowel, hepatitis, peptic ulcer disease, splenic infarction, perforated viscus, vulvitis, ovarian torsion, PID, kidney stone, placenta abruption, this is not meant to be an all-inclusive list Differential Chest Pain: Stable Angina, Unstable Angina, STEMI, NSTEMI Aortic Dissection, Pneumothorax, Musculoskeletal, Esophageal Spasm GERD, Cholecystitis, Pancreatitis, Zoster, this is not meant to be an all-inclusive list. EKG interpreted by me (3pts min.). @ -EKG interpreted by me showing a sinus rhythm at 76 bpm with some nonspecific ST and T wave changes. CO 187, QRS 114, QT/QTc 382/413. X-rays interpreted by me (1pt min.). @ -None done CT interpreted by me (1pt min.). @ -CT abdomen pelvis at this time is pending. U/S interpreted by me (1pt. min.). @ -None done What testing was considered but not performed or refused? (CT, X-rays, U/S, l abs)? Why? @ -None What meds were considered but not given or refused? Why? @ -None Did you discuss the management of the patient with other professionals (professionals i.e. , PA, HAIR ROOTING MACHINE OPERATOR, lab, RT, psych nurse, health and social care teacher, ncqa specialist, teacher, chief nursing officer, case advocate)? Give summary @ -No Was smoking cessation discussed for >3mins.? @ -No Was critical care preformed (if so, how long)? @ -No Were there social determinants of health that impacted care today? How? (Homelessness, low income, unemployed, alcoholism, drug addiction, transportation, low edu. Level, literacy, decrease access to med. care, senior care, rehab)? @ -No Was there de-escalation of care discussed even if they declined (Discuss DNR or withdrawal of care, Hospice)? DNR status @ -No What co-morbidities impacted this encounter? (DM, HTN, Smoking, COPD, CAD, Cancer, CVA, ARF, Chemo, Hep., AIDS, mental health diagnosis, sleep apnea, morbid obesity)? @ -Obesity, hypertension, hyperlipidemia Was patient admitted / discharged? Hospital course, mention meds given and route, prescriptions, significant lab abnormalities, going to OR and other pertinent info. @ -Admission 62-year-old female presenting to the ED with a chief complaint of nausea and vomiting with some abdominal pain as well. CBC at this time shows mild elevation of white blood cells at 10.9. Initial troponin here negative. Patient is a hard stick and having difficulties obtaining laboratory studies at this time. Chemistry panel is still pending at this time. Serial troponins ordered. At this time patient has a heart score of 4 secondary to her age and risk factors putting her at moderate risk of major adverse cardiac event. Therefore, patient placed in observation with consult to cardiology to rule out ACS. Undiagnosed new problem with uncertain prognosis? @ -No Drug Therapy requiring intensive monitoring for toxicity (Heparin, Nitro, Insulin, Cardizem)? @ -No Were any procedures done? @ -No Diagnosis/symptom? @ -Chest pain, nausea and vomiting Acute, or Chronic, or Acute on Chronic? @ -Acute Uncomplicated (without systemic symptoms) or Complicated (systemic symptoms)? @ -Uncomplicated Side effects of treatment? @ -No Exacerbation, Progression, or Severe Exacerbation? @ -No Poses a threat to life or bodily function? How? (Chest pain, [place], [place], pneumonia, PE, COPD, DKA, ARF, appy, cholecystitis, CVA, Diverticulitis, Homicidal, Suicidal, threat to staff... and all critical care pts) @ -Possibly, chest pain of unknown origin at this time. - Lab Data Result diagrams: 07/26/23 22:12 07/26/23 23:08 Lab Results 07/26/23 07/26/23 07/26/23 Range/Units 02:12 22:12 23:08 WBC 10.9 H (3.8-10.6) k/uL RBC 4.62 (3.80-5.40) m/uL Hgb 13.8 (11.4-16.0) gm/dL Hct 41.8 (34.0-46.0) % MCV 90.4 (80.0-100.0) fL MCH 29.8 (25.0-35.0) pg MCHC 32.9 (31.0-37.0) g/dL RDW 13.7 (11.5-15.5) % Plt Count 178 (150-450) k/uL MPV 7.2 Neutrophils % 90 % Lymphocytes % 7 % Monocytes % 2 % Eosinophils % 1 % Basophils % 0 % Neutrophils # 9.8 H (1.3-7.7) k/uL Lymphocytes # 0.7 L (1.0-4.8) k/uL Monocytes # 0.2 (0-1.0) k/uL Eosinophils # 0.1 (0-0.7) k/uL Basophils # 0.0 (0-0.2) k/uL PT 11.1 (10.0-12.5) sec INR 1.0 (<1.2) Sodium 140 (137-145) mmol/L Potassium 4.0 (3.5-5.1) mmol/L Chloride 105 (98-107) mmol/L Carbon Dioxide 25 (22-30) mmol/L Anion Gap 10 mmol/L BUN 25 H (7-17) mg/dL Creatinine 0.67 (0.52-1.04) mg/dL Est GFR (CKD-EPI)AfAm >90 (>60 ml/min/1.73 sqM) Est GFR (CKD-EPI)NonAf >90 (>60 ml/min/1.73 sqM) Glucose 188 H (74-99) mg/dL Calcium 9.4 (8.4-10.2) mg/dL Magnesium 1.9 (1.6-2.3) mg/dL Total Bilirubin 0.6 (0.2-1.3) mg/dL AST 21 (14-36) U/L ALT 20 (4-34) U/L Alkaline Phosphatase 97 (38-126) U/L Troponin I (0.000-0.034) ng/mL Total Protein 7.5 (6.3-8.2) g/dL Albumin 4.2 (3.5-5.0) g/dL Amylase 51 (30-110) U/L Lipase 74 (23-300) U/L Urine Color Urine Appearance (Clear) Urine pH (5.0-8.0) Ur Specific [place] (1.001-1.035) Urine Protein (Negative) Urine Glucose (UA) (Negative) Urine Ketones (Negative) Urine Blood (Negative) Urine Nitrite (Negative) Urine Bilirubin (Negative) Urine Urobilinogen (<2.0) mg/dL Ur Leukocyte Esterase (Negative) Influenza Type A (PCR) (Not Detectd) Influenza Type B (PCR) (Not Detectd) RSV (PCR) (Not Detectd) SARS-CoV-2 (PCR) (Not Detectd) 07/26/23 07/26/23 07/27/23 Range/Units 23:08 23:14 02:17 WBC (3.8-10.6) k/uL RBC (3.80-5.40) m/uL Hgb (11.4-16.0) gm/dL Hct (34.0-46.0) % MCV (80.0-100.0) fL MCH (25.0-35.0) pg MCHC (31.0-37.0) g/dL RDW (11.5-15.5) % Plt Count (150-450) k/uL MPV Neutrophils % % Lymphocytes % % Monocytes % % Eosinophils % % Basophils % % Neutrophils # (1.3-7.7) k/uL Lymphocytes # (1.0-4.8) k/uL Monocytes # (0-1.0) k/uL Eosinophils # (0-0.7) k/uL Basophils # (0-0.2) k/uL PT (10.0-12.5) sec INR (<1.2) Sodium (137-145) mmol/L Potassium (3.5-5.1) mmol/L Chloride (98-107) mmol/L Carbon Dioxide (22-30) mmol/L Anion Gap mmol/L BUN (7-17) mg/dL Creatinine (0.52-1.04) mg/dL Est GFR (CKD-EPI)AfAm (>60 ml/min/1.73 sqM) Est GFR (CKD-EPI)NonAf (>60 ml/min/1.73 sqM) Glucose (74-99) mg/dL Calcium (8.4-10.2) mg/dL Magnesium (1.6-2.3) mg/dL Total Bilirubin (0.2-1.3) mg/dL AST (14-36) U/L ALT (4-34) U/L Alkaline Phosphatase (38-126) U/L Troponin I <0.012 (0.000-0.034) ng/mL Total Protein (6.3-8.2) g/dL Albumin (3.5-5.0) g/dL Amylase (30-110) U/L Lipase (23-300) U/L Urine Color Yellow Urine Appearance Clear (Clear) Urine pH 7.0 (5.0-8.0) Ur Specific [place] 1.024 (1.001-1.035) Urine Protein Negative (Negative) Urine Glucose (UA) Negative (Negative) Urine Ketones 2+ H (Negative) Urine Blood Negative (Negative) Urine Nitrite Negative (Negative) Urine Bilirubin Negative (Negative) Urine Urobilinogen <2.0 (<2.0) mg/dL Ur Leukocyte Esterase Negative (Negative) Influenza Type A (PCR) Not Detected (Not Detectd) Influenza Type B (PCR) Not Detected (Not Detectd) RSV (PCR) Not Detected (Not Detectd) SARS-CoV-2 (PCR) Not Detected (Not Detectd) 07/27/23 Range/Units 02:22 WBC (3.8-10.6) k/uL RBC (3.80-5.40) m/uL Hgb (11.4-16.0) gm/dL Hct (34.0-46.0) % MCV (80.0-100.0) fL MCH (25.0-35.0) pg MCHC (31.0-37.0) g/dL RDW (11.5-15.5) % Plt Count (150-450) k/uL MPV Neutrophils % % Lymphocytes % % Monocytes % % Eosinophils % % Basophils % % Neutrophils # (1.3-7.7) k/uL Lymphocytes # (1.0-4.8) k/uL Monocytes # (0-1.0) k/uL Eosinophils # (0-0.7) k/uL Basophils # (0-0.2) k/uL PT (10.0-12.5) sec INR (<1.2) Sodium (137-145) mmol/L Potassium (3.5-5.1) mmol/L Chloride (98-107) mmol/L Carbon Dioxide (22-30) mmol/L Anion Gap mmol/L BUN (7-17) mg/dL Creatinine (0.52-1.04) mg/dL Est GFR (CKD-EPI)AfAm (>60 ml/min/1.73 sqM) Est GFR (CKD-EPI)NonAf (>60 ml/min/1.73 sqM) Glucose (74-99) mg/dL Calcium (8.4-10.2) mg/dL Magnesium (1.6-2.3) mg/dL Total Bilirubin (0.2-1.3) mg/dL AST (14-36) U/L ALT (4-34) U/L Alkaline Phosphatase (38-126) U/L Troponin I <0.012 (0.000-0.034) ng/mL Total Protein (6.3-8.2) g/dL Albumin (3.5-5.0) g/dL Amylase (30-110) U/L Lipase (23-300) U/L Urine Color Urine Appearance (Clear) Urine pH (5.0-8.0) Ur Specific [place] (1.001-1.035) Urine Protein (Negative) Urine Glucose (UA) (Negative) Urine Ketones (Negative) Urine Blood (Negative) Urine Nitrite (Negative) Urine Bilirubin (Negative) Urine Urobilinogen (<2.0) mg/dL Ur Leukocyte Esterase (Negative) Influenza Type A (PCR) (Not Detectd) Influenza Type B (PCR) (Not Detectd) RSV (PCR) (Not Detectd) SARS-CoV-2 (PCR) (Not Detectd) Disposition Clinical Impression: Chest pain, Nausea & vomiting Disposition: ADMITTED IP TO THIS HOSP
[2023-07-27] MEDS ORDERED: ONDANSETRON 4 MG/2 ML VIAL IVP STA (00:06)
[2023-07-27 00:31] LABS: Appearance,Urine Clear (Clear); Bilirubin,Urine Negative (Negative); Blood,Urine Negative (Negative); Color,Urine Yellow; Glucose,Urine (UA) Negative (Negative); Ketones,Urine 2+ (Negative); Leukocyte Esterase,Urine Negative (Negative); Nitrite,Urine Negative (Negative); Protein,Urine Negative (Negative); Specific Gravity,Urine 1.024 (1.001-1.035); Urobilinogen,Urine <2.0 mg/dL (<2.0)
[2023-07-27 00:32] LABS: Basophils % (A) 0 %; Eosinophils # (A) 0.1 k/uL (0-0.7); Eosinophils % (A) 1 %; HCT 41.8 % (34.0-46.0); HGB 13.8 gm/dL (11.4-16.0); Lymphocytes # (A) 0.7 k/uL (1.0-4.8); Lymphocytes % (A) 7 %; MCH 29.8 pg (25.0-35.0); MCHC 32.9 g/dL (31.0-37.0); MCV 90.4 fL (80.0-100.0); Mean Platelet Volume 7.2; Monocytes # (A) 0.2 k/uL (0-1.0); Monocytes % (A) 2 %; Neutrophils # (A) 9.8 k/uL (1.3-7.7); Neutrophils % (A) 90 %; Platelet Count 178 k/uL (150-450); RBC 4.62 m/uL (3.80-5.40); RDW 13.7 % (11.5-15.5); WBC 10.9 k/uL (3.8-10.6)
[2023-07-27 00:43] LABS: Prothrombin Time 11.1 sec (10.0-12.5)
[2023-07-27 01:14] LABS: Magnesium 1.9 mg/dL (1.6-2.3)
[2023-07-27] MEDS ORDERED: METOCLOPRAMIDE 5 MG/ML 2 ML VIAL IVP STA (01:30)
[2023-07-27] MEDS ORDERED: PROCHLORPERAZINE INJ 10 MG/2 ML VIAL IVP STA (02:11)
[2023-07-27] MEDS: SODIUM CHLORIDE 0.9% 1,000 ML IV SCH ×3 (02:34→21:36)
[2023-07-27] MEDS ORDERED: ONDANSETRON 4 MG/2 ML VIAL IVP PRN (02:41)
[2023-07-27] MEDS ORDERED: ACETAMINOPHEN TAB 325 MG TAB PO PRN (02:41)
[2023-07-27] MEDS ORDERED: NALOXONE 0.4 MG/ML 1 ML VIAL IV PRN (02:41)
[2023-07-27] MEDS ORDERED: HYDROmorphone 1 MG/ML 1 ML SYRINGE IVP PRN (02:41)
[2023-07-27] MEDS ORDERED: PROMETHAZINE 25 MG TAB PO PRN (02:41)
[2023-07-27 03:25] LABS: ALT 20 U/L (4-34); AST 21 U/L (14-36); African American GFR (CKD) >90 (>60 ml/min/1.73 sqM); Albumin 4.2 g/dL (3.5-5.0); Alkaline Phosphatase 97 U/L (38-126); Amylase 51 U/L (30-110); Anion Gap 10 mmol/L; Blood Urea Nitrogen 25 mg/dL (7-17); Calcium 9.4 mg/dL (8.4-10.2); Carbon Dioxide 25 mmol/L (22-30); Chloride 105 mmol/L (98-107); Glucose 188 mg/dL (74-99); Lipase 74 U/L (23-300); Non-African American GFR(CKD) >90 (>60 ml/min/1.73 sqM); Sodium 140 mmol/L (137-145); Total Bilirubin 0.6 mg/dL (0.2-1.3); Total Protein 7.5 g/dL (6.3-8.2)
--- NOTE | 2023-07-27 06:49 | CT ---
EXAM: CT Abdomen and Pelvis With Intravenous Contrast CLINICAL HISTORY: ITS.REASON CT Reason: nausea vomiting abdominal pain TECHNIQUE: Axial computed tomography images of the abdomen and pelvis with intravenous contrast. CTDI is 70.9 mGy and DLP is 3445 mGy-cm. This CT exam was performed using one or more of the following dose reduction techniques: automated exposure control, adjustment of the mA and/or kV according to patient size, and/or use of iterative reconstruction technique. COMPARISON: No relevant prior studies available. FINDINGS: Artifacts: Artifact degrades image quality and limits evaluation. Lung bases: Unremarkable. No mass. No consolidation. Heart: Mild cardiomegaly. Mediastinum: Small hiatal hernia. ABDOMEN: Liver: Hepatomegaly, measuring 19.6 cm in greatest craniocaudad dimension, with mild nodular contour suggesting early cirrhosis. Gallbladder and bile ducts: Status post cholecystectomy. No ductal dilation. Pancreas: Unremarkable. No mass. No ductal dilation. Spleen: Spleen is at the upper limits of normal, likely representing portal hypertension. Adrenals: Unremarkable. No mass. Kidneys and ureters: Left renal cysts, which appear complex, largest of which measures 4.9 cm in greatest axial dimension. Duplicated left renal collecting system noted. Stomach and bowel: Extensive colonic diverticulosis with evidence of acute diverticulitis involving the distal ascending along with the proximal descending segments of the colon with associated mild pericolonic inflammatory changes. No free air. No fluid collection. No bowel obstruction. PELVIS: Appendix: No findings to suggest acute appendicitis. Bladder: Unremarkable. No mass. Reproductive: Unremarkable as visualized. ABDOMEN and PELVIS: Intraperitoneal space: See above. Bones/joints: Evaluation of the osseous structures demonstrates moderate degenerative changes in the thoracic lumbar spine. No acute fracture. No dislocation. Soft tissues: Unremarkable. Vasculature: Unremarkable. No abdominal aortic aneurysm. Lymph nodes: Mild upper abdominal and retroperitoneal lymphadenopathy, likely reactive. IMPRESSION: 1. Extensive colonic diverticulosis with evidence of acute diverticulitis involving the distal ascending along with the proximal descending segments of the colon with associated mild pericolonic inflammatory changes. No free air. No fluid collection. No bowel obstruction. 2. Left renal cysts, which appear complex, largest of which measures 4.9 cm in greatest axial dimension. Nonemergent renal mass protocol CT versus MRI is recommended for further evaluation. 3. Mild cardiomegaly. 4. Hepatomegaly with evidence of early cirrhosis. 5. Status post cholecystectomy. 6. Small hiatal hernia.
--- NOTE | 2023-07-27 07:41 | XR ---
EXAMINATION TYPE: XR chest 1V portable DATE OF EXAM: 07/27/2023 HISTORY: Shortness of breath. COMPARISON: 01/20/2022 TECHNIQUE: Single view of the chest is submitted. FINDINGS: Demonstrated are scattered senescent parenchymal change. There is no evidence for focal infiltrate. The heart is stable. Hilar and mediastinal structures are within normal limits. Degenerative changes are seen of the dorsal spine. IMPRESSION: 1. Chronic changes without evidence for acute pulmonary disease.
[2023-07-27] MEDS ORDERED: ALBUTEROL NEBULIZED 2.5 MG/3 ML INHALATION PRN (10:05)
--- NOTE | 2023-07-27 10:06 | P.CRDCN ---
History of Present Illness History of present illness: HISTORY OF PRESENT ILLNESS: This is a 62-year-old female with a past medical history significant for GERD, hypertension, depression, and morbid obesity. Patient follows in the office with Dr. Murillo. We have been asked to see the patient in consultation for chest pain. Patient examined at the bedside in the emergency room. The patient states she initially started feeling nauseated on but had no other symptoms until yesterday when she began to have vomiting along with her nausea. She reports fever and chills at home. She denies any shortness of breath. She does report discomfort in the epigastric region. She denies diarrhea but states her stools have been loose. She continues to report nausea this morning and has a emesis basin at the her side. Blood pressure 132/67. Heart rate is in the 80s. DIAGNOSTICS: - EKG reveals sinus mechanism with T wave inversions in lead III and aVF. T wave inversions in V3. Mild ST depression in V5V6. No significant change from EKG in 2021 obtained in the office. - Chest xray chronic changes without evidence for acute pulmonary disease - Laboratory data: WBC 10.9. Hemoglobin 13.8. Platelet count 178. Sodium 140. Potassium 4.0. BUN 25. Creatinine 0.67. Magnesium 1.9. Troponin negative x 3. - Current home cardiac medications include Lasix 40 mg daily and losartan 50 mg daily - Most recent echocardiogram obtained in October 2020 revealed normal EF, mild MR - Cardiac catheterization history: 2018 revealing normal coronary arteries REVIEW OF SYSTEMS: At the time of my exam: CONSTITUTIONAL: Denies fever or chills. HEENT: Denies blurred vision, vision changes, or eye pain. Denies hemoptysis CARDIOVASCULAR: Denies chest pain. Denies orthopnea. Denies PND. Denies palpitations RESPIRATORY: Denies shortness of breath. GASTROINTESTINAL: Denies abdominal pain. Denies nausea or vomiting. HEMATOLOGIC: Denies bleeding disorders. GENITOURINARY: Denies any blood in urine. SKIN: Denies pruitis. Denies rash. PHYSICAL EXAM: VITAL SIGNS: Reviewed. GENERAL: Well-developed in no acute distress. HEENT: Head is normocephalic. Pupils are equal, round. Sclerae anicteric. Mucous membranes of the mouth are moist. Neck supple. No JVD or thyromegaly LUNGS: Respirations even and unlabored. Lungs essentially clear to auscultation bilaterally. HEART: Regular rate and rhythm. S1 and S2 heard. ABDOMEN: Soft. Nondistended. Epigastric tenderness EXTREMITIES: Normal range of motion. No clubbing or cyanosis. Peripheral pulses intact. No lower extremity edema NEUROLOGIC: Awake and alert. Oriented x 3. ASSESSMENT: Atypical chest pain, epigastric, appears related to GI symptoms, troponin negative x 3 Nausea and vomiting Extensive colonic diverticulosis with evidence of acute diverticulitis, per CT scan Normal coronary arteries, per cardiac catheterization in 2018 History of hypertension History of depression History of GERD Morbid obesity: BMI 56.7 Left renal cyst per CT scan Hepatomegaly with evidence of early cirrhosis PLAN: An acute coronary event has been ruled out No need to obtain echocardiogram at this time Resume home dose of losartan Hold home dose of Lasix until nausea and vomiting improves and patient is able to tolerate oral intake Management of patient's GI symptoms per internal medicine No further inpatient recommendations from a cardiac standpoint We will sign off. Please reconsult if needed. Nurse practitioner note has been reviewed by physician. Signing provider agrees with the documented findings, assessment, and plan of care documented by S[employer]ER as a scribe. Past Medical History Past Medical History: Hypertension History of Any Multi-Drug Resistant Organisms: None Reported Past Surgical History: No Surgical Hx Reported Past Psychological History: No Psychological Hx Reported Smoking Status: Never smoker Past Alcohol Use History: None Reported Past Drug Use History: None Reported Medications and Allergies Home Medications Medication Instructions Recorded Confirmed Type Albuterol Sulfate [Albuterol 2 puff PO RT-QID PRN 07/27/23 07/27/23 History Sulfate Hfa] Celecoxib [CeleBREX] 200 mg PO DAILY 07/27/23 07/27/23 History Furosemide [Lasix] 40 mg PO DAILY 07/27/23 07/27/23 History Losartan [Cozaar] 50 mg PO DAILY 07/27/23 07/27/23 History Montelukast [Singulair] 10 mg PO DAILY 07/27/23 07/27/23 History Potassium Chloride ER [K-Dur 10] 10 meq PO DAILY 07/27/23 07/27/23 History Sertraline [Zoloft] 50 mg PO DAILY 07/27/23 07/27/23 History Allergies Allergy/AdvReac Type Severity Reaction Status Date / Time No Known Allergies Allergy Verified 07/27/23 07:11 Physical Exam Vitals: Vital Signs Temp Pulse Resp BP Pulse Ox 07/27/23 06:48 97.8 F 86 18 157/78 98 07/27/23 04:22 98.1 F 91 18 168/88 98 07/27/23 02:21 90 18 170/81 96 07/26/23 21:00 97.6 F 82 20 160/93 94 L Intake and Output 07/26/23 07/27/23 07/27/23 22:59 06:59 14:59 Other: Weight 145.15 kg Results 07/26/23 22:12 07/26/23 23:08 Cardiac Enzymes 07/26/23 07/26/23 07/27/23 Range/Units 23:08 23:14 02:22 AST 21 (14-36) U/L Troponin I <0.012 <0.012 (0.000-0.034) ng/mL 07/27/23 Range/Units 05:40 AST (14-36) U/L Troponin I <0.012 (0.000-0.034) ng/mL Coagulation 07/26/23 Range/Units 02:12 PT 11.1 (10.0-12.5) sec CBC 07/26/23 Range/Units 22:12 WBC 10.9 H (3.8-10.6) k/uL RBC 4.62 (3.80-5.40) m/uL Hgb 13.8 (11.4-16.0) gm/dL Hct 41.8 (34.0-46.0) % Plt Count 178 (150-450) k/uL Comprehensive Metabolic Panel 07/26/23 Range/Units 23:08 Sodium 140 (137-145) mmol/L Potassium 4.0 (3.5-5.1) mmol/L Chloride 105 (98-107) mmol/L Carbon Dioxide 25 (22-30) mmol/L BUN 25 H (7-17) mg/dL Creatinine 0.67 (0.52-1.04) mg/dL Glucose 188 H (74-99) mg/dL Calcium 9.4 (8.4-10.2) mg/dL AST 21 (14-36) U/L ALT 20 (4-34) U/L Alkaline Phosphatase 97 (38-126) U/L Total Protein 7.5 (6.3-8.2) g/dL Albumin 4.2 (3.5-5.0) g/dL Current Medications Generic Name Dose Route Start Last Admin Trade Name Freq PRN Reason Stop Dose Admin Acetaminophen 650 mg 07/27/23 02:41 Acetaminophen Tab 325 Mg Tab PO Q6HR PRN Mild Pain or Fever > 100.5 Hydromorphone HCl 1 mg 07/27/23 02:41 Hydromorphone 1 Mg/Ml 1 Ml Syringe IVP Q3HR PRN Severe Pain (Scale 7 to 10) Sodium Chloride 1,000 mls @ 100 mls/hr 07/27/23 02:45 07/27/23 02:34 Saline 0.9% IV 100 mls/hr .Q10H VESTA Administration Ketorolac Tromethamine 15 mg 07/27/23 02:41 Ketorolac 15 Mg/Ml 1 Ml Vial IVP 07/30/23 02:43 Q6HR PRN Moderate Pain (Scale 4 to 6) Naloxone HCl 0.2 mg 07/27/23 02:41 Naloxone 0.4 Mg/Ml 1 Ml Vial IV Q2M PRN Opioid Reversal Ondansetron HCl 4 mg 07/27/23 02:41 Ondansetron 4 Mg/2 Ml Vial IVP Q8HR PRN Nausea And Vomiting Promethazine HCl 12.5 mg 07/27/23 02:41 Promethazine 25 Mg Tab PO Q6HR PRN Nausea And Vomiting Intake and Output 07/26/23 07/27/23 07/27/23 22:59 06:59 14:59 Other: Weight 145.15 kg 07/26/23 22:12 07/26/23 23:08
[2023-07-27] MEDS: PANTOPRAZOLE 40 MG/10 ML VIAL IVP SCH (10:15)
[2023-07-27] MEDS: LOSARTAN 50 MG TAB PO SCH (14:08)
[2023-07-27] MEDS: KETOROLAC 15 MG/ML 1 ML VIAL IVP PRN ×2 (14:26→20:23)
--- NOTE | 2023-07-27 14:44 | P.CONS ---
History of Present Illness - Reason for Consult Consult date: 07/27/23 Diverticulitis Requesting physician: Elsy Bajwa - Chief Complaint Nausea and vomiting - History of Present Illness This is a pleasant 62-year-old white female who presented to the emergency department with complaints of chest pain abdominal pain and nausea and vomiting. Patient states she started having chest and abdominal pain on which she stated was more so discomfort and chest pressure. Yesterday she started having intractable nausea and vomiting continued with some nausea and vomiting today. She had positive chills but no fever. Yesterday she had a bowel movement which was loose but nonbloody. Most of her pain and is in her mid abdomen. She had a CT of the abdomen pelvis with contrast reporting severe diverticulosis and diverticulitis. Gastroenterology was consulted for diverticulitis. Patient had mild leukocytosis on admission. Reports no previous colonoscopy and has had a history of an EGD back in 2004. Nausea and vomiting improving as well as pain. She was seen by cardiology for chest pain which they reported likely epigastric and related to GI symptoms. Troponins were negative and they ruled out acute coronary event. Review of Systems A 14 point review systems was completed all pertinent positives and negatives as stated in the HPI. Past Medical History Past Medical History: Hypertension History of Any Multi-Drug Resistant Organisms: None Reported Past Surgical History: No Surgical Hx Reported Past Psychological History: No Psychological Hx Reported Smoking Status: Never smoker Past Alcohol Use History: None Reported Past Drug Use History: None Reported Medications and Allergies Home Medications Medication Instructions Recorded Confirmed Type Albuterol Sulfate [Albuterol 2 puff PO RT-QID PRN 07/27/23 07/27/23 History Sulfate Hfa] Celecoxib [CeleBREX] 200 mg PO DAILY 07/27/23 07/27/23 History Furosemide [Lasix] 40 mg PO DAILY 07/27/23 07/27/23 History Losartan [Cozaar] 50 mg PO DAILY 07/27/23 07/27/23 History Montelukast [Singulair] 10 mg PO DAILY 07/27/23 07/27/23 History Potassium Chloride ER [K-Dur 10] 10 meq PO DAILY 07/27/23 07/27/23 History Sertraline [Zoloft] 50 mg PO DAILY 07/27/23 07/27/23 History Allergies Allergy/AdvReac Type Severity Reaction Status Date / Time No Known Allergies Allergy Verified 07/27/23 07:11 Physical Exam Vitals: Vital Signs Temp Pulse Pulse Resp BP BP Pulse Ox 07/27/23 07:00 98.1 F 84 17 132/67 96 07/27/23 06:48 97.8 F 86 18 157/78 98 07/27/23 04:22 98.1 F 91 18 168/88 98 07/27/23 02:21 90 18 170/81 96 07/26/23 21:00 97.6 F 82 20 160/93 94 L Intake and Output 07/26/23 07/27/23 07/27/23 22:59 06:59 14:59 Other: Weight 145.15 kg General appearance: The patient is alert, oriented, appears in no acute distress. HET: Head is normocephalic and atraumatic. Pupils are equal and reactive. Neck: Supple. Heart: Regular. Lungs: Equal expansion, normal respiratory effort. Abdomen: Soft, obese, mid abdomen tenderness to palpation, nondistended. Extremities: Normal skin color and turgor. Neurological: No focal deficits. Strength and sensation are grossly intact. Results CBC & Chem 7: 07/26/23 22:12 07/26/23 23:08 Labs: Abnormal Lab Results - Last 24 Hours (Table) 07/26/23 07/26/23 07/26/23 Range/Units 22:12 23:08 23:08 WBC 10.9 H (3.8-10.6) k/uL Neutrophils # 9.8 H (1.3-7.7) k/uL Lymphocytes # 0.7 L (1.0-4.8) k/uL BUN 25 H (7-17) mg/dL Glucose 188 H (74-99) mg/dL Urine Ketones 2+ H (Negative) Comments: CT abdomen pelvis with IV contrast reports extensive colonic diverticulosis with evidence of acute diverticulitis involving the distal ascending along with the proximal descending segments of the colon with associated mild pericolonic inflammatory changes. No free air. No fluid collection. No bowel obstruction. Left renal cyst, which appear complex, largest of which measures 4.9 cm in greatest axial dimension. Nonemergent renal mass protocol CT versus MRI recommended for further evaluation. Mild cardiomegaly. Hepatomegaly with evidence of early cirrhosis. Status postcholecystectomy and small hiatal hernia. CT scan - abdomen: report reviewed Assessment and Plan (1) Diverticulitis Narrative/Plan: 62-year-old female presenting for intractable nausea and vomiting and abdominal and chest pain with acute coronary syndrome ruled out. No previous history of diverticulitis. No previous colonoscopy. Patient admitted will be treated with IV antibiotics for acute diverticulitis. Will recommend outpatient colonoscopy in a few weeks. Continue antiemetics and supportive care. Current Visit: Yes Status: Acute Code(s): K57.92 - DVTRCLI OF INTEST, PART UNSP, W/O PERF OR ABSCESS W/O BLEED SNOMED Code(s): 510948782 (2) Abdominal pain Current Visit: Yes Status: Acute Code(s): R10.9 - UNSPECIFIED ABDOMINAL PAIN SNOMED Code(s): 36687771 (3) Nausea & vomiting Current Visit: Yes Status: Acute Code(s): R11.2 - NAUSEA WITH VOMITING, UNSPECIFIED SNOMED Code(s): 02780596 Plan: 1. Continue symptomatic and supportive care 2. Antiemetics as needed 3. IV Levaquin and Flagyl started 4. Patient may have clear liquid diet 5. No plans on colonoscopy at this time. Patient will need to follow-up with gastroenterology for outpatient colonoscopy in a few weeks. Thank you for this consultation, we will continue to follow. Dr. Watson Mayes I agree with the dictator's note, documented as a scribe by Naima Hayes.
[2023-07-27] MEDS: LEVOFLOXACIN 500MG-D5W PMX 500 MG in DEXTROSE/WATER 1 100ML.BAG IVPB SCH (15:09)
[2023-07-27] MEDS: metroNIDAZOLE-NS PMX 500 MG in SALINE 1 100ML.BAG IVPB SCH ×2 (16:29→23:30)
--- NOTE | 2023-07-27 17:09 | P.HPIM ---
History of Present Illness H&P Date: 07/27/23 Chief Complaint: Intractable nausea ,vomiting, abdominal pain This is a 62-year-old female with past medical history significant for hypertension, morbid obesity, gastroesophageal reflux disease, depression and multiple other medical issues presented to the ER with nausea, vomiting, abdominal pain, mid epigastric pain that initiated 4 days prior with chills , chest discomfort, loose nonbloody stools.troponins negative x 3, EKG reviewed by cardiology and compared to prior EKG in office reporting no significant change with acute coronary event ruled out. Chest x-ray reports no acute pulmonary disease.CT of abdomen and pelvis reported extensive colonic diverticulosis with evidence of acute diverticulitis involving the distal ascending along with the proximal descending segments of the colon with associated mild pericolonic inflammatory changes. No free air. No fluid collection. No bowel obstruction. Left renal cysts which appear complex, largest of which measures 4.9 cm in greatest axial dimension. Mild cardiomegaly, hepatomegaly with evidence of early cirrhosis. Status postcholecystectomy small hiatal. Afebrile, WBC 10.9. Hemoglobin 13.8, platelets 178. Sodium 140 potassium 4, bicarb 25, BUN 25, creatinine 0.67, glucose 188 magnesium 1.9. LFTs within normal limits. UA negative. Influenza type A/type B, RSV, COVID not detected. Review of Systems ROS Statement: Those systems with pertinent positive or pertinent negative responses have been documented in the HPI. ROS Other: All systems not noted in ROS Statement are negative. Past Medical History Past Medical History: Hypertension History of Any Multi-Drug Resistant Organisms: None Reported Past Surgical History: No Surgical Hx Reported Past Psychological History: No Psychological Hx Reported Smoking Status: Never smoker Past Alcohol Use History: None Reported Past Drug Use History: None Reported Medications and Allergies Home Medications Medication Instructions Recorded Confirmed Type Albuterol Sulfate [Albuterol 2 puff PO RT-QID PRN 07/27/23 07/27/23 History Sulfate Hfa] Celecoxib [CeleBREX] 200 mg PO DAILY 07/27/23 07/27/23 History Furosemide [Lasix] 40 mg PO DAILY 07/27/23 07/27/23 History Losartan [Cozaar] 50 mg PO DAILY 07/27/23 07/27/23 History Montelukast [Singulair] 10 mg PO DAILY 07/27/23 07/27/23 History Potassium Chloride ER [K-Dur 10] 10 meq PO DAILY 07/27/23 07/27/23 History Sertraline [Zoloft] 50 mg PO DAILY 07/27/23 07/27/23 History Allergies Allergy/AdvReac Type Severity Reaction Status Date / Time No Known Allergies Allergy Verified 07/27/23 07:11 Physical Exam Vitals: Vital Signs Temp Pulse Pulse Resp BP BP Pulse Ox 07/27/23 07:00 98.1 F 84 17 132/67 96 07/27/23 06:48 97.8 F 86 18 157/78 98 07/27/23 04:22 98.1 F 91 18 168/88 98 07/27/23 02:21 90 18 170/81 96 07/26/23 21:00 97.6 F 82 20 160/93 94 L Intake and Output 07/26/23 07/27/23 07/27/23 22:59 06:59 14:59 Other: Weight 145.15 kg PHYSICAL EXAM: VITAL SIGNS: [As above] GENERAL: Lying on her side, nauseated, NAD HEENT: Atraumatic, normocephalic conjunctivae normal. eyes normal. Sclera anicteric NECK: Supple, no JVD. No thyroid enlargement. No LNs CARDIOVASCULAR: S1, S2 regular.. No murmur RESPIRATION: Unlabored, equal air entry, breath sounds diminished in the bases. No rhonchi or crackles. No bronchial breathing. ABDOMEN: Soft, obese, mid abdominal tenderness, no masses palpable. No ascites, No hepatosplenomegaly.Bowel sounds heard. LEGS: No edema. no swelling , no clubbing, cyanosis. No calf tenderness PSYCHIATRY: Alert and oriented X3, mood and affect normal. NERVOUS SYSTEM: Cranial N 2-12 grossly normal. Moves all 4 limbs. No focal deficits. Strength and sensation grossly intact. Skin: Warm and dry, no rash Results CBC & Chem 7: 07/26/23 22:12 07/26/23 23:08 Labs: Abnormal Lab Results - Last 24 Hours (Table) 07/26/23 07/26/23 07/26/23 Range/Units 22:12 23:08 23:08 WBC 10.9 H (3.8-10.6) k/uL Neutrophils # 9.8 H (1.3-7.7) k/uL Lymphocytes # 0.7 L (1.0-4.8) k/uL BUN 25 H (7-17) mg/dL Glucose 188 H (74-99) mg/dL Urine Ketones 2+ H (Negative) Assessment and Plan Assessment: Acute diverticulitis Colonic diverticulosis Left complex renal cyst reported per CT Leukocytosis, mild Hepatomegaly with evidence of early cirrhosis reported per CT Atypical chest pain, opponent is negative x 3, evaluated by cardiology. CAD with history of normal cardiac catheterization 2017 Hypertension Morbid obesity, BMI 57 Depression Plan: Continue on current medication regimen, monitoring and symptomatic treatment. IV fluid hydration .continue with prn antiemetics. GI consulted, IV Levaquin and Flagyl initiated. The impression and plan of care has been dictated as directed. : I performed a history and examination of this patient, discussed the same with the dictator. I agree with the dictator's note ,documented as a scribe. Any additional findings or plans will be noted.
[2023-07-28] MEDS ORDERED: MONTELUKAST 10 MG TAB PO SCH (09:00)
[2023-07-28 09:01] LABS: Basophils # (A) 0.03 X 10*3/uL (0.00-0.10); Basophils % (A) 0.4 %; Eosinophils # (A) 0.05 X 10*3/uL (0.04-0.35); Eosinophils % (A) 0.7 %; HCT 38.1 % (37.2-46.3); HGB 11.8 g/dL (12.0-15.0); Lymphocytes # (A) 1.55 X 10*3/uL (0.90-5.00); MCH 28.7 pg (27.0-32.0); MCV 92.7 FL (80.0-97.0); Mean Platelet Volume 10.3 FL (9.5-12.2); Monocytes # (A) 0.78 X 10*3/uL (0.20-1.00); Monocytes % (A) 10.6 %; NRBC Per 100 WBC 0 X 10*3/uL (0.00-0.01); Neutrophils # (A) 4.95 X 10*3/uL (1.80-7.70); Platelet Count 192 X 10*3/uL (140-440); RBC 4.11 X 10*6/uL (4.10-5.20); RDW 14.2 % (11.5-14.5); WBC 7.38 X 10*3/uL (4.50-10.00)
[2023-07-28] MEDS ORDERED: SERTRALINE 50 MG TAB PO SCH (09:30)
[2023-07-28 09:47] LABS: BUN/Creat Ratio 21.22 Ratio (12.00-20.00); Blood Urea Nitrogen 19.1 mg/dL (9.0-27.0); Calcium 8.9 mg/dL (8.7-10.3); Chloride 105 mmol/L (96-109); Glucose 89 mg/dL (70-110); Potassium 4.1 mmol/L (3.5-5.5); Sodium 141 mmol/L (135-145)
--- NOTE | 2023-07-28 10:19 | P.DS ---
Providers Date of admission: 07/27/23 03:11 Expected date of discharge: 07/28/23 Attending physician: Dawood Alejandro Consults: 07/27/23 10:03 Consult Physician Routine Consulting Provider: Yamilet Mayes Consult Reason/Comments: Diverticulitis Do you want consulting provider notified?: Yes Primary care physician: Dawood Alejandro [facility] Course: Acute diverticulitis Colonic diverticulosis Left complex renal cyst reported per CT Leukocytosis, mild Hepatomegaly with evidence of early cirrhosis reported per CT Atypical chest pain, opponent is negative x 3, evaluated by cardiology. CAD with history of normal cardiac catheterization 2018 Hypertension Morbid obesity, BMI 57 Depression Hospital course:This is a 62-year-old female with past medical history significant for hypertension, morbid obesity, gastroesophageal reflux disease, depression and multiple other medical issues presented to the ER with nausea, vomiting, abdominal pain, mid epigastric pain that initiated 4 days prior with chills , chest discomfort, loose nonbloody stools.troponins negative x 3, EKG reviewed by cardiology and compared to prior EKG in office reporting no significant change with acute coronary event ruled out. Chest x-ray reports no acute pulmonary disease.CT of abdomen and pelvis reported extensive colonic diverticulosis with evidence of acute diverticulitis involving the distal ascending along with the proximal descending segments of the colon with associated mild pericolonic inflammatory changes. No free air. No fluid collection. No bowel obstruction. Left renal cysts which appear complex, largest of which measures 4.9 cm in greatest axial dimension. Mild cardiomegaly, hepatomegaly with evidence of early cirrhosis. Status postcholecystectomy small hiatal. Afebrile, WBC 10.9. Hemoglobin 13.8, platelets 178. Sodium 140 potassium 4, bicarb 25, BUN 25, creatinine 0.67, glucose 188 magnesium 1.9. LFTs within normal limits. UA negative. Influenza type A/type B, RSV, COVID not detected. Evaluated by GI, maintained on IV fluid hydration, IV Levaquin and Flagyl. Significant clinical improvement. Afebrile. no further nausea and vomiting, tolerating clear liquids. Abdominal pain nearly subsided. Cleared by GI for discharge. Patient will be discharged home today in a stable condition with guarded prognosis. The impression and plan of care has been dictated as directed. : I performed a history and examination of this patient, discussed the same with the dictator. I agree with the dictator's note ,documented as a scribe. Any additional findings or plans will be noted. Patient Condition at Discharge: Stable Plan - Discharge Summary Discharge Rx Participant: Yes New Discharge Prescriptions: New Ciprofloxacin HCl [Cipro] 500 mg PO BID 9 Days #18 tab metroNIDAZOLE [Flagyl] 500 mg PO TID 9 Days #27 tab Continue Sertraline [Zoloft] 50 mg PO DAILY Potassium Chloride ER [K-Dur 10] 10 meq PO DAILY Montelukast [Singulair] 10 mg PO DAILY Albuterol Sulfate [Albuterol Sulfate Hfa] 2 puff PO RT-QID PRN PRN Reason: Shortness Of Breath Losartan [Cozaar] 50 mg PO DAILY Furosemide [Lasix] 40 mg PO DAILY Celecoxib [CeleBREX] 200 mg PO DAILY Discharge Medication List Albuterol Sulfate [Albuterol Sulfate Hfa] 2 puff PO RT-QID PRN 07/27/23 [History] Celecoxib [CeleBREX] 200 mg PO DAILY 07/27/23 [History] Furosemide [Lasix] 40 mg PO DAILY 07/27/23 [History] Losartan [Cozaar] 50 mg PO DAILY 07/27/23 [History] Montelukast [Singulair] 10 mg PO DAILY 07/27/23 [History] Potassium Chloride ER [K-Dur 10] 10 meq PO DAILY 07/27/23 [History] Sertraline [Zoloft] 50 mg PO DAILY 07/27/23 [History] Ciprofloxacin HCl [Cipro] 500 mg PO BID 9 Days #18 tab 07/28/23 [Rx] metroNIDAZOLE [Flagyl] 500 mg PO TID 9 Days #27 tab 07/28/23 [Rx] Follow up Appointment(s)/Referral(s): Dawood Alejandro DO [Primary Care Provider] - 1 Week Yamilet Mayes MD [STAFF PHYSICIAN] - 2 Weeks Patient Instructions/Handouts: Diverticulitis (DC), Diverticulosis (DC), Diverticulitis Diet (DC) Activity/Diet/Wound Care/Special Instructions: low fiber diet for 1-2 weeks Discharge Disposition: HOME SELF-CARE
[2023-07-28] MEDS: LOSARTAN 50 MG TAB PO SCH (10:26)
[2023-07-28] MEDS: PANTOPRAZOLE 40 MG/10 ML VIAL IVP SCH (10:26)
[2023-07-28] MEDS: metroNIDAZOLE-NS PMX 500 MG in SALINE 1 100ML.BAG IVPB SCH (10:27)
[2023-07-28] MEDS: SODIUM CHLORIDE 0.9% 1,000 ML IV SCH (10:47)
--- NOTE | 2023-07-28 13:11 | P.PN ---
Subjective Progress Note Date: 07/28/23 Principal diagnosis: Diverticulitis This is a pleasant 62-year-old white female who presented to the emergency department with complaints of chest pain abdominal pain and nausea and vomiting. Patient states she started having chest and abdominal pain on which she stated was more so discomfort and chest pressure. Yesterday she started having intractable nausea and vomiting continued with some nausea and vomiting today. She had positive chills but no fever. Yesterday she had a bowel movement which was loose but nonbloody. Most of her pain and is in her mid abd omen. She had a CT of the abdomen pelvis with contrast reporting severe diverticulosis and diverticulitis. Gastroenterology was consulted for diverticulitis. Patient had mild leukocytosis on admission. Reports no previous colonoscopy and has had a history of an EGD back in 2004. Nausea and vomiting improving as well as pain. She was seen by cardiology for chest pain which they reported likely epigastric and related to GI symptoms. Troponins were negative and they ruled out acute coronary event. 07/28/2023 Patient seen and examined today as a follow-up for diverticulitis. She states abdominal pain is almost completely gone, she has no nausea no vomiting. She has been afebrile she is tolerating a clear liquid diet. Objective - Vital Signs Vital signs: Vital Signs Temp 97.9 F 07/28/23 07:00 Pulse 63 07/28/23 07:00 Resp 17 07/28/23 07:00 BP 132/68 07/28/23 07:00 Pulse Ox 96 07/28/23 07:00 FiO2 Intake & Output 07/27/23 07/28/23 07/28/23 18:59 06:59 18:59 Intake Total 1180 480 Balance 1180 480 Weight 145.15 kg Intake: Intake, IV Titration 700 Amount Sodium Chloride 0.9% 1, 700 000 ml @ 100 mls/hr IV . Q10H VESTA Rx#:[id number] Oral 480 480 Other: # Voids 2 4 - Exam General appearance: The patient is alert, oriented, appears in no acute distress. Obese. HET: Head is normocephalic and atraumatic. Conjunctiva pink. Sclera anicteric. Neck: Supple without lymphadenopathy. Abdomen: Soft, nontender, nondistended with bowel sounds. No guarding or rigidity. Extremities: Normal skin color and turgor. No pedal edema Skin: No rashes, no jaundice Neurological: No focal deficits. Alert and oriented. - Labs CBC & Chem 7: 07/28/23 06:02 07/28/23 06:02 Labs: Abnormal Lab Results - Last 24 Hours (Table) 07/28/23 Range/Units 06:02 Hgb 11.8 L (12.0-15.0) g/dL MCHC 31.0 L (32.0-37.0) g/dL Assessment and Plan (1) Diverticulitis Narrative/Plan: 62-year-old female presenting for intractable nausea and vomiting and abdominal and chest pain with acute coronary syndrome ruled out. No previous history of diverticulitis. No previous colonoscopy. Patient admitted will be treated with IV antibiotics for acute diverticulitis. Will recommend outpatient colonoscopy in a few weeks. Continue antiemetics and supportive care. Current Visit: Yes Status: Acute Code(s): K57.92 - DVTRCLI OF INTEST, PART UNSP, W/O PERF OR ABSCESS W/O BLEED SNOMED Code(s): 815230052 (2) Abdominal pain Current Visit: Yes Status: Acute Code(s): R10.9 - UNSPECIFIED ABDOMINAL PAIN SNOMED Code(s): 09927472 (3) Nausea & vomiting Current Visit: Yes Status: Acute Code(s): R11.2 - NAUSEA WITH VOMITING, UNSPECIFIED SNOMED Code(s): 99731712 Plan: 1. Continue symptomatic and supportive care 2. Antiemetics as needed 3. Continue IV Levaquin and Flagyl 4. Advance to full liquid diet, then advance as tolerated to lowfiber for the next 1-2 weeks 5. Patient may be cleared for discharge. Recommend continuing for full 10 days of antibiotics with Flagyl and Cipro 5. No plans on colonoscopy at this time. Patient will need to follow-up with gastroenterology for possible outpatient colonoscopy in a few weeks. Thank you for this consultation. Dr. Watson Mayes I agree with the dictator's note, documented as a scribe by Naima Hayes.
[2023-07-28] MEDS: LEVOFLOXACIN 500MG-D5W PMX 500 MG in DEXTROSE/WATER 1 100ML.BAG IVPB SCH (13:52)
[2023-07-28 14:05] VITALS: BP 145/84; PULSE 79; RESP 18; TEMP 98.3
== END 2023-07-28 16:13 | disposition home or self-care (01) ==
LOC: EC 20:38 → MERGE 07-27 03:11 → 6NMEDSUR 07-27 03:11
PROVIDERS: ADMIT Family Medicine; ATTEND Family Medicine
DX: K57.32 Diverticulitis of large intestine without perforation or abscess without bleeding (principal); K74.60 Unspecified cirrhosis of liver; N28.1 Cyst of kidney, acquired; R07.89 Other chest pain; I11.9 Hypertensive heart disease without heart failure; F32.A Depression, unspecified; E66.01 Morbid (severe) obesity due to excess calories; Z68.43 Body mass index [BMI] 50.0-59.9, adult; K21.9 Gastro-esophageal reflux disease without esophagitis; Z11.52 Encounter for screening for COVID-19; Z11.59 Encounter for screening for other viral diseases; Z79.1 Long term (current) use of non-steroidal anti-inflammatories (NSAID); Z79.899 Other long term (current) drug therapy
CPT/HCPCS: 96376 ×2; 96361 ×3; 96366; 96367; 96365; 96375; 99285; 36415; 93005; 80053; 80048; 82150; 83690; 83735; 84484; 85025 ×2; 85610; 81003; 87636; 71045; 74177; G0378 ×2; J0780; J2765; J2405; J1956 ×2; J1885; C9113 ×2; Q9967; J1836 ×2

== ENCOUNTER → 2023-11-14 | Outpatient (CLI) | payer BC ==
[2023-11-14 09:19] LABS: INR 0.9 (<1.2); Partial Thromboplastin Time 24.5 sec (22.0-30.0); Prothrombin Time 10.4 sec (10.0-12.5)
[2023-11-14 13:16] LABS: HCT 42.1 % (37.2-46.3); HGB 13.4 g/dL (12.0-15.0); MCH 28.6 pg (27.0-32.0); MCHC 31.8 g/dL (32.0-37.0); MCV 89.8 FL (80.0-97.0); Mean Platelet Volume 10.3 FL (9.5-12.2); NRBC Per 100 WBC 0 X 10*3/uL (0.00-0.01); Platelet Count 211 X 10*3/uL (140-440); RBC 4.69 X 10*6/uL (4.10-5.20); RDW 13.4 % (11.5-14.5); WBC 6.52 X 10*3/uL (4.50-10.00)
[2023-11-14 13:40] LABS: ALT 16 U/L (8-44); AST 19 U/L (13-35); Albumin 4.3 g/dL (3.8-4.9); Albumin/Globulin Ratio 1.59 Ratio (1.60-3.17); Alkaline Phosphatase 91 U/L (41-126); BUN/Creat Ratio 26.88 Ratio (12.00-20.00); Blood Urea Nitrogen 21.5 mg/dL (9.0-27.0); Calcium 9.8 mg/dL (8.7-10.3); Carbon Dioxide 24.8 mmol/L (21.6-31.8); Chloride 105 mmol/L (96-109); Globulin 2.7 g/dL (1.6-3.3); Glucose 93 mg/dL (70-110); Potassium 4.2 mmol/L (3.5-5.5); Sodium 142 mmol/L (135-145); Total Bilirubin 0.5 mg/dL (0.3-1.2)
== END | disposition home or self-care (01) ==
LOC: LABPAT 07:26
PROVIDERS: ATTEND Orthopaedic Surgery
DX: Z01.812 Encounter for preprocedural laboratory examination (principal); M17.11 Unilateral primary osteoarthritis, right knee; Z22.322 Carrier or suspected carrier of Methicillin resistant Staphylococcus aureus
CPT/HCPCS: 36415; 80053; 85027; 85610; 85730; 87070

== ENCOUNTER 2023-12-15 05:44 | Day surgery (SDC) | payer BC ==
[~2023-12-15 05:44] MED LIST changes: -ACETAMINOPHEN TAB 500 MG TAB PO PRN; -GABAPENTIN 300 MG CAP PO PRN; -MELOXICAM 7.5 MG TAB PO PRN; -MIDAZOLAM 2 MG/2 ML VIAL IV PRN; -ROPIVACAINE/EPI/CLONIDINE/KET 50 ML SYRINGE MISCELLANE PRN; +TRANEXAMIC 1,000 MG/100ML-NACL 1,000 MG in SALINE 1 100ML.BAG IVPB PRN; -TRANEXAMIC ACID 1,000 MG in SODIUM CHLORIDE 0.9% 100 ML IVPB PRN; -ceFAZolin 3 GM in SODIUM CHLORIDE 0.9% 100 ML IVPB PRN
[2023-12-15] MEDS: ACETAMINOPHEN TAB 500 MG TAB PO PRN (06:41)
[2023-12-15] MEDS: GABAPENTIN 300 MG CAP PO PRN (06:41)
[2023-12-15] MEDS: MELOXICAM 7.5 MG TAB PO PRN (06:41)
[2023-12-15] MEDS: ONDANSETRON 4 MG/2 ML VIAL IVP ONE (06:42)
[2023-12-15] MEDS: DEXAMETHASONE SOD PHOSPHATE 4 MG/ML 1 ML VIAL IV ONE (06:43)
[2023-12-15] MEDS: LACTATED RINGERS 1,000 ML IV SCH (06:50)
[2023-12-15] MEDS: IV FLUID CONTINUATION 1,000 ML IV ONE (06:51)
[2023-12-15] MEDS ORDERED: NEOSTIGMINE 1 MG/ML 10 ML VIAL ONE (06:54)
[2023-12-15] MEDS ORDERED: fentaNYL (PF) 50 MCG/ML 2 ML AMP ONE (06:54)
[2023-12-15] MEDS ORDERED: KETAMINE HCL IN 0.9 % NACL 50 MG/5 ML SYRINGE ONE (06:54)
[2023-12-15] MEDS ORDERED: SUCCINYLCHOLINE CHLORIDE 200 MG/10 ML VIAL IV ONE (06:54)
[2023-12-15] MEDS ORDERED: HYDROmorphone (PF) 1 MG/ML ONE (06:54)
[2023-12-15] MEDS ORDERED: MIDAZOLAM 2 MG/2 ML VIAL ONE (06:54)
[2023-12-15] MEDS ORDERED: GLYCOPYRROLATE 0.2 MG/ML 2 ML VIAL ONE (06:54)
[2023-12-15] MEDS ORDERED: ROCURONIUM 10 MG/ML (5 ML VIAL) IV ONE (06:54)
[2023-12-15] MEDS ORDERED: ePHEDrine 50 MG/ML 1 ML VIAL ONE (06:54)
[2023-12-15] MEDS ORDERED: TRANEXAMIC 1,000 MG/100ML-NACL PREMIX BAG ONE (06:54)
[2023-12-15] MEDS ORDERED: PROPOFOL 10 MG/ML 20 ML VIAL IV ONE (06:54)
[2023-12-15] MEDS: ceFAZolin 3 GM in SODIUM CHLORIDE 0.9% 100 ML IVPB PRN (06:56)
[2023-12-15] MEDS: ceFAZolin 1,000 MG in SODIUM CHLORIDE 0.9% 1,000 ML IRRIGATION ONE (06:56)
--- NOTE | 2023-12-15 08:41 | P.OP ---
Date of Procedure: 12/15/23 Preoperative Diagnosis: Severe osteoarthritis right knee Postoperative Diagnosis: Severe osteoarthritis right knee Procedure(s) Performed: Right total knee arthroplasty Implants: [employer] Journey II CR Oxinium cruciate retaining femoral component size 6, right [employer] Journey nonporous tibial baseplate size 3, right [employer] Journey II, XLPE Deep Dished articular insert, size 12 mm, Size 3-4, right [employer] Syl II resurfacing patellar component, oval, 32 mm All components were cemented using Palacos R bone cement The articulation is Oxinium on polyethylene Anesthesia: ABIOLA Surgeon: Prince Nevarez Clutch Assembler #1: Liliya Cordon Estimated Blood Loss (ml): 100 Pathology: none sent Condition: stable Disposition: PACU Indications for Procedure: The patient's knee is end-stage, and conservative management has failed. The operation of knee replacement has been discussed at length in the office, as well as potential risks and complications. These are inclusive of, but not limited to: Infection, bleeding, scarring, discomfort, stiffness, blood vessel and nerve damage, need for further surgery, failure to relieve symptoms, persistence, recurrence, or worsening of problems, loosening, dislocation, wear, blood clot, pulmonary embolism, , gait dysfunction, stiffness, and other risks as discussed in the office. Patient elects to proceed and the consent form has been signed. Operative Findings: The operative findings are consistent with severe osteoarthritis of the right knee Description of Procedure: The patient was seen in the preoperative area, the consent was reviewed and the operative site was marked with a skin marker. The patient verified the procedure and the operative site. An adductor canal pain catheter and an iPACK block were placed by anesthesia in the preoperative area. The patient was then brought to the operating room and positioned on the operating room table in the supine position. Preoperative antibiotics and a gram of tranexamic acid were given intravenously. A general anesthetic was administered by the anesthesia department. Care was taken to make sure that all pressure points were adequately padded. A tourniquet was placed on the upper thigh and the lower extremity was prepped with ChloraPrep and draped in usual sterile fashion. A universal time-out was then performed which confirmed the patient's name, surgical site, ALLERGIES, and consent. The lower extremity was then exsanguinated and tourniquet was inflated to 250 mmHg. A standard anterior midline approach to the knee was performed. The skin and subcutaneous tissue were sharply dissected down to the patellar tendon. A medial parapatellar arthrotomy was then performed. The knee was then extended, the patellar was everted, and the knee was flexed. The infra-patellar fat pad was removed in order to enhance exposure. The anterior horns of both menisci were excised, and a release was performed to the posterior medial aspect of the knee. On gross visual inspection, there was complete loss of articular cartilage in the medial and patellofemoral joint spaces. There was also significant cartilage damage in the lateral compartment. There were multiple periarticular osteophytes globally about the knee which were then removed with a Ronguer. The femoral canal was then opened with the 9.5 mm intramedullary drill. The 8 mm intramedullary lori was then inserted into the femoral canal with the distal femoral cutting guide set for 5 of valgus. The distal femoral cutting block was then pinned in place. The intramedullary lori was then removed, and the distal femur was then cut. The cutting block was then removed and the cut was checked for symmetry. The resected bone was then measured to confirm the appropriate distal femoral resection. Next, the sizing guide was then placed and set for 3 external rotation based off of the epicondylar axis and Comerío's line. Pins were then placed and the drill holes, and the femur was sized with the sizing stylus. The pins were then removed, and the sizing guide was then removed. The spikes of the appropriate size femoral block was then placed into the predrilled holes, and malleted into place. Two 45 mm pins were then placed into the fixation holes on the cutting block. An micah wing was then used to ensure there would be no notching with the anterior cut. The anterior condyles were cut without notching. The anterior chord cut was then performed, followed by the posterior cut, posterior chamfer cut, and the anterior chamfer cut. The collateral ligaments were protected during the entire process. The cutting block was then removed. Any remaining bone and osteophytes were removed from the femur with a Ronguer. Attention was then directed to the tibia. The remaining ACL was removed with a Ronguer, and the tibia was then gently subluxed forward with a large bent knee retractor. Any remaining menisci were excised. The posterior lateral corner was cauterized in order to coagulate the lateral geniculate artery. The extra medullary tibial cutting guide was then placed, set for the appropriate rotation, slope, and depth of resection. The proximal tibia cutting guide was then pinned in place. Proximal tibia was then cut and sized. A curved osteotome was then used to remove any posterior osteophytes from the distal femur. The femoral trial was placed. A narrow saw blade was then used to remove the anterior intracondylar femoral bone. The CR notch trial was then placed. The tibial trial was placed with the appropriate-sized insert. The knee was able to fully extend and flex to 130 and was stable throughout all range of motion. The knee was then extended and the patella was everted. Patella was then measured, and then using an osteotomy guide, the patella was cut at the appropriate level. The patellar component was sized. The patellar drill guide was placed and the patella was drilled. The patella trial was then placed. The knee was then taken through range of motion with the patella trial and the patella tracked normally using the no thumbs technique. The patella trial was then removed. The knee was then flexed and lug holes were drilled through the femoral trial and the femoral trial was then removed. The tibial was then re- exposed, and the tibial broach guide was then pinned in place after it was set for the appropriate rotation to allow for the most coverage without overhang. The tibia was then reamed and broached. The femoral canal was plugged with autologous bone. The cut surfaces of bone were then irrigated with pulsatile lavage. The knee was also irrigated with Irrisept solution. The components were then opened, the cement was mixed. Cement was placed on the backside of the femoral, tibial, and patellar components. Cement was then applied to the tibial surface and pressurized into the surface using finger pressurization technique. The tibial component was then applied and excess cement was removed after it was impacted securely noted to be flush with the cut surface. In similar fashion, the cement was applied to the cut femoral surface, pressurized and using finger pressurization the component was impacted in place. Excess cement was removed. The polyethylene spacer was then implanted and locked into position. Patellar component was then applied in a similar technique and the patellar clamp was used to hold patella in place while the cement hardened. The knee was held in full extension while the cement hardened. Once the cement had fully hardened, the knee was reinspected. Any other cement extrusion was removed the final range of motion testing showed range of motion from 0-130 with excellent stability, both medial and laterally and appropriate alignment of the leg. Patella tracked normally. After the cemented hardened, the tourniquet was released and hemostasis was obtained. A second gram of transexamic acid was given intravenously. The knee was again irrigated. The knee was again taken through range of motion and found to be stable throughout all range of motion of 0-130, and the patella tracked normally. The fascia was then closed with 0 Vicryl followed by #2 strata fix suture. The subcutaneous tissue was closed with 3-0 Vicryl and 3-0 strata fix. Exofin glue was used for the skin and placed with the knee in flexion. After the glue had dried, and Optafoam silver impregnated dressing was applied. A lightly compressive dressing was applied using web roll and Man wrap. Patient was then transferred to the stretcher and taken to recovery room in stable condition. Sponge and needle counts were correct. The doctor assistant AYLIN Mcfarland was required due the complexity surgery and the need for a skilled director surgical. She assisted in positioning, draping, retraction, and closure of the wound.
[2023-12-15] MEDS: LACTATED RINGERS 1,000 ML IV ONE ×2 (08:42)
[2023-12-15] MEDS ORDERED: MAGNESIUM HYDROXIDE 2,400 MG/30 ML CUP PO PRN (09:13)
[2023-12-15] MEDS ORDERED: HYDROmorphone 0.5 MG/0.5 ML SYRINGE IVP PRN ×3 (09:13)
[2023-12-15] MEDS ORDERED: NA PHOS,M-B/NA PHOS,DI-BA 133 ML ENEMA RECTAL PRN (09:13)
[2023-12-15] MEDS ORDERED: bisacodyL 10 MG SUPP RECTAL PRN (09:13)
[2023-12-15] MEDS ORDERED: NALOXONE 0.4 MG/ML 1 ML VIAL IV PRN (09:13)
[2023-12-15] MEDS ORDERED: SODIUM CHLORIDE 0.9% 1,000 ML IV SCH (09:15)
[2023-12-15] MEDS ORDERED: HYDROcodone/APAP 7.5-325MG 1 EACH TAB PO PRN (09:15)
[2023-12-15 09:17] VITALS: TEMP 98
[2023-12-15] MEDS: HYDROmorphone 0.5 MG/0.5 ML SYRINGE IVP PRN (09:18)
--- NOTE | 2023-12-15 10:08 | XR ---
EXAMINATION TYPE: XR knee limited RT DATE OF EXAM: 12/15/2023 9:45 AM CLINICAL INDICATION:Female, 63 years old with history of Evaluation for Postop abnormality and alignm ent; COMPARISON: None. TECHNIQUE: XR knee limited RT; examined in Frontal, lateral and oblique projections. FINDINGS: Status post total knee arthroplasty changes with hardware in appropriate alignment and in tact. No evidence of fracture. Subcutaneous lucencies and lucencies within the joint consistent with surgical changes. IMPRESSION: Status post total knee arthroplasty changes with hardware intact and appropriate alignment. No fractu res identified.
[2023-12-15] MEDS: HYDROcodone/APAP 7.5-325MG 1 EACH TAB PO PRN (11:19)
[2023-12-15] MEDS: ONDANSETRON 4 MG/2 ML VIAL IVP PRN (11:19)
[2023-12-15] MEDS: HYDROcodone/APAP 7.5-325MG 1 EACH TAB PO ONE (11:27)
[2023-12-15 12:13] VITALS: BP 124/73; PULSE 87; RESP 16
[2023-12-15] MEDS ORDERED: ASPIRIN 325 MG TAB PO SCH (21:00)
[2023-12-15] MEDS ORDERED: SENNOSIDES-DOCUSATE SODIUM 1 EACH TAB PO SCH (21:00)
== END 2023-12-15 13:46 | disposition home health service (06) ==
LOC: OR 05:44
PROVIDERS: ATTEND Orthopaedic Surgery
DX: M17.11 Unilateral primary osteoarthritis, right knee (principal); I10 Essential (primary) hypertension; K21.9 Gastro-esophageal reflux disease without esophagitis; E66.9 Obesity, unspecified; Z79.899 Other long term (current) drug therapy; Z88.6 Allergy status to analgesic agent; Z88.8 Allergy status to other drugs, medicaments and biological substances; Z68.43 Body mass index [BMI] 50.0-59.9, adult
CPT/HCPCS: 27447; 97530; 97161; 73560; C1713; C1776; J2250; J0330; J1100; J2710; J0690 ×2; J2405; J3010; J1170 ×2; J2704

== ENCOUNTER 2024-01-01 05:37 | Emergency (ER) | payer BC, MEDICARE ==
[2024-01-01 05:45] VITALS: RESP 18
--- NOTE | 2024-01-01 06:30 | ED ---
Allergic Reaction HPI - General Chief complaint: Allergic Reaction Stated complaint: Allergic reaction Time Seen by Provider: 01/01/24 05:56 Source: patient, RN notes reviewed Mode of arrival: ambulatory Limitations: no limitations - History of Present Illness Initial Comments: This is a 63-year-old female who presents to the emergency department for con cerns of hives. States that it started 24 to 48 hours ago. It started on her hands and spread to her arms and her chest. She tried applying hydrocortisone cream without any relief. She has not tried taking Benadryl or anything else for symptoms. She had a knee replacement on 12/14 and states that on 12/23 she was started on Keflex for infectious prophylaxis. She stopped taking this a few days ago and wonders if that may have triggered the rash. However, she has taken Keflex before and has not had any problems with this. She was also started on [place], Zofran, Senokot, and aspirin postoperatively but did not have any immediate problems with those. Denies being outside or having any exposure to new foods, soaps, or detergents. Also denies any chest pain, shortness of breath, sore throat, or facial swelling associated with this. MD Complaint: allergic reaction - Related Data Home Medications Medication Instructions Recorded Confirmed Albuterol Sulfate [Albuterol 2 puff PO RT-QID PRN 07/27/23 12/11/23 Sulfate Hfa] Celecoxib [CeleBREX] 200 mg PO DAILY 07/27/23 12/11/23 Furosemide [Lasix] 40 mg PO DAILY 07/27/23 12/11/23 Losartan [Cozaar] 50 mg PO DAILY 07/27/23 12/15/23 Montelukast [Singulair] 10 mg PO DAILY 07/27/23 12/15/23 Potassium Chloride ER [K-Dur 10] 10 meq PO DAILY 07/27/23 12/15/23 Sertraline [Zoloft] 50 mg PO DAILY 07/27/23 12/15/23 Acetaminophen [Tylenol] 650 mg PO Q4H PRN 12/11/23 12/15/23 Fluticasone Propionate [Flonase 1 spray EA NOSTRIL DAILY PRN 12/11/23 12/15/23 Allergy Relief] Pantoprazole [Protonix] 40 mg PO DAILY 12/11/23 12/15/23 traMADol HCL 50 mg PO Q8H 12/11/23 12/15/23 Previous Rx's Medication Instructions Recorded Aspirin 325 mg PO BID #60 tab 12/15/23 HYDROcodone/APAP 7.5-325MG [R[place]land 1 - 2 tab PO Q6H PRN #32 tab 12/15/23 7.5-325] Ondansetron Odt [Zofran Odt] 1 tab PO Q8HR PRN #10 tab 12/15/23 Sennosides [Senokot] 2 tab PO DAILY PRN #60 tablet 12/15/23 Famotidine [Pepcid] 40 mg PO DAILY 7 Days #7 tablet 01/01/24 Triamcinolone 0.5% Cream [Kenalog 1 applic TOPICAL QID PRN #30 gm 01/01/24 0.5% Cream] Allergies Allergy/AdvReac Type Severity Reaction Status Date / Time pilocarpine HCl Allergy Itching Verified 01/01/24 05:45 [From Salagen] bupivacaine HCl AdvReac Swelling Verified 01/01/24 05:45 [From Marcaine] AFTER INJECTION IN KNEE naproxen [From Naprosyn] AdvReac fluid Verified 01/01/24 05:45 retention Review of Systems ROS Statement: Those systems with pertinent positive or pertinent negative responses have been documented in the HPI. ROS Other: All systems not noted in ROS Statement are negative. Past Medical History Past Medical History: GERD/Reflux, Hearing Disorder / Deafness, Hypertension, Musculoskeletal Disorder, Skin Disorder Additional Past Medical History / Comment(s): STRESS TEST 09/2015 - VALVE HAS SL LEAKAGE. SEASONAL ALLERGY. TINNITUS. SL OA. FOLICULITIS SCALP; ATHLETES'S FOOT; LIPOMA RT UPPER BACK. Pt states that she has been cleared from cardio and that it was just a misread image that led to the stress test. History of Any Multi-Drug Resistant Organisms: None Reported Past Surgical History: No Surgical Hx Reported, Cholecystectomy, Joint Replacement, Tonsillectomy Additional Past Surgical History / Comment(s): RT SHOULDER IMPINGEMENT REPAIR, EXC PART CLAVICLE. right ankle fusion, lipoma removed back, abscess lymph node removed from neck, left knee replacement November 2020. Past Anesthesia/Blood Transfusion Reactions: No Reported Reaction Past Psychological History: No Psychological Hx Reported Smoking Status: Second hand smoke exposure, Never smoker Past Alcohol Use History: None Reported, Rare Past Drug Use History: None Reported - Past Family History Mother Family Medical History: Cancer Additional Family Medical History / Comment(s): Breast cancer Father Family Medical History: Congestive Heart Failure (CHF), COPD, Osteoarthritis (OA) General Exam Limitations: no limitations General appearance: alert, in no apparent distress Head exam: Present: atraumatic, normocephalic, normal inspection ENT exam: Present: normal exam, normal oropharynx, mucous membranes moist Respiratory exam: Present: normal lung sounds bilaterally. Absent: respiratory distress, wheezes, rales, rhonchi, stridor Cardiovascular Exam: Present: regular rate, normal rhythm, normal heart sounds. Absent: systolic murmur, diastolic murmur, rubs, gallop, clicks Neurological exam: Present: alert, oriented X3, CN II-XII intact Psychiatric exam: Present: normal affect, normal mood Skin exam: Present: other (Urticaria to the bilateral upper extremities and chest. No involvement of the lower extremities or back.) Course Vital Signs 01/01/24 01/01/24 05:42 07:57 Temperature 98.1 F 97.3 F L Pulse Rate 74 75 Respiratory 18 18 Rate Blood Pressure 118/66 149/87 O2 Sat by Pulse 97 96 Oximetry Medical Decision Making - Medical Decision Making This is a 63 year old female who presents to the emergency department for a rash to the upper extremities. Was pt. sent in by a medical professional or institution? @ -No Did you speak to anyone other than the patient for history? @ -No Did you review nursing and triage notes? @ -Yes, and I agree, it is accurate with regards to the patient's symptoms. Were old charts reviewed? @ -No Differential Diagnosis? @ -Differential Rash: Roseola, measles, Lyme disease, erythema multiforme, cellulitis, toxic shock syndrome, Brendan Claude syndrome, Kawasaki disease, tan mountain spotted fever, contact dermatitis, allergic dermatitis, measles, mumps, rubella, varicella, meningococcal disease, drug reaction, coxsackievirus, This is not meant to be an all-inclusive list. EKG interpreted by me (3pts min.)? @ -Not obtained X-rays interpreted by me (1pt min.)? @ -Not obtained CT interpreted by me (1pt min.)? @ -Not obtained U/S interpreted by me (1pt. min.)? @ -Not obtained What testing was considered but not performed? (CT, X-rays, U/S, labs)? Why? @ -None What meds were considered but not given? Why? @ -None Did you discuss the management of the patient with other professionals? @ -No Did you reconcile home meds? @ -No Was smoking cessation discussed for >3mins.? @ -No Was critical care preformed (if so, how long)? @ -No Were there social determinants of health that impacted care today? How? (Homelessness, low income, unemployed, alcoholism, drug addiction, transportation, low edu. Level, literacy, decrease access to med. care, nursing home, rehab)? @ -No Was there de-escalation of care discussed even if they declined? (Discuss DNR or withdrawal of care, Hospice)? @ -No What co-morbidities impacted this encounter? (DM, HTN, Smoking, COPD, CAD, Cancer, CVA, Hep., AIDS, mental health diagnosis, sleep apnea, morbid obesity)? @ -None Was patient admitted / discharged? @ -Discharged. Physical exam consistent with urticaria. Given the timing of the rash, it may have been due to the Keflex. It may also be a contact dermatitis. Given her postoperative state and because there was no respiratory involvement, systemic steroids were avoided. She was given Benadryl and famotidine along with topical triamcinolone cream. Advised continuing with OTC Benadryl for the next several days. Rx for Famotidine and triamcinolone cream provided as well for additional management. Advised discussing the antibiotic situation with orthopedics to see if they would like her to take something else. She was otherwise discharged home in stable condition. Undiagnosed new problem with uncertain prognosis? @ -None Drug Therapy requiring intensive monitoring for toxicity (Heparin, Nitro, Insulin, Cardizem)? @ -None Were any procedures done? @ -None Diagnosis/symptom? @ -Urticaria Acute, or Chronic, or Acute on Chronic? @ -Acute Uncomplicated (without systemic symptoms) or Complicated (systemic symptoms)? @ -Uncomplicated Side effects of treatment? @ -None Exacerbation, Progression, or Severe Exacerbation] @ -Not applicable Poses a threat to life or bodily function? @ -No Return precautions reviewed in depth, the patient is instructed to return to the emergency department with any new, worsening, or concerning symptoms. Patient verbalized understanding. This case was discussed in detail with the attending ED physician, Dr. Mar. Presentation, findings, and treatment plan discussed in detail as well. Disposition Clinical Impression: Allergic reaction Disposition: HOME SELF-CARE Instructions (If sedation given, give patient instructions): Urticaria (ED) Additional Instructions: Return to the emergency department with any new, worsening, or concerning symptoms. Take Benadryl every 4-6 hours for management of the rash along with the famotidine daily for 7 days. Apply the triamcinolone cream to the affected areas 3-4 times daily as well. Follow up with your primary care provider in 1-2 days. Prescriptions: Triamcinolone 0.5% Cream [Kenalog 0.5% Cream] 1 applic TOPICAL QID PRN #30 gm PRN Reason: Itching Famotidine [Pepcid] 40 mg PO DAILY 7 Days #7 tablet Is patient prescribed a controlled substance at d/c from ED?: No Referrals: Dawood Alejandro DO [Primary Care Provider] - 1-2 days Time of Disposition: 07:06
[2024-01-01] MEDS: diphenhydrAMINE 50 MG/ML 1 ML VIAL IVP STA (07:21)
[2024-01-01] MEDS: FAMOTIDINE 20 MG TAB PO STA (07:21)
[2024-01-01] MEDS: TRIAMCINOLONE ACET 0.5% CREAM 15 GM TUBE TOPICAL ONE (07:21)
[2024-01-01] MEDS: methylPREDNISolone SOD SUCCI 125 MG/2 ML VIAL IV STA (07:21)
[2024-01-01 07:59] VITALS: BP 149/87; PULSE 75; TEMP 97.3
== END 2024-01-01 08:16 | disposition home or self-care (01) ==
LOC: EC 05:37
DX: L50.9 Urticaria, unspecified (principal); Z77.22 Contact with and (suspected) exposure to environmental tobacco smoke (acute) (chronic)
CPT/HCPCS: 99283; 96374; J1200

== ENCOUNTER → 2024-01-07 | Outpatient (CLI) | payer BC, MEDICARE ==
--- NOTE | 2024-01-14 21:41 | MM ---
Reason for Exam: Screening (asymptomatic). Last mammogram was performed 1 year(s) and 4 month(s) ago. Patient History: Menarche at age 9. Patient has no children. Postmenopausal. 08/17/2018, Benign Core Biopsy on the right side. Mother had breast cancer, age 53. Risk Values: Kelly 5 year model risk: 4.2%. NCI Lifetime model risk: 15.2%. Prior Study Comparison: 02/02/2020 Bilateral Screening Mammogram, [facility]. 08/05/2021 Bilateral Screening Mammogram, [facility]. 09/23/2022 Bilateral MG 3D screening mammo w/cad, [facility]. Tissue Density: The breasts are heterogeneously dense, which may obscure small masses. Findings: Analyzed By CAD. Unchanged bilateral asymmetric densities. Microclip right breast from prior biopsy. There is no suspicious group of microcalcifications or new suspicious mass in either breast. Overall Assessment: Benign, BI-RAD 2 Management: Screening Mammogram of both breasts in 1 year. See note below in regards to the patient's increased 5 year Kelly score. Patient should continue monthly self-breast exams. A clinical breast exam by your physician is recommended on an annual basis. This exam should not preclude additional follow-up of suspicious palpable abnormalities. Note on Kelly scores and lifetime risk: 1. A Kelly score greater than 3% is considered moderate risk. If this is the case, consider specialist referral to assess eligibility for a risk reducing agent. 2. If overall lifetime risk for the development of breast cancer is 20% or higher, the patient may qualify for future screening with alternating mammogram and breast MRI. Electronically signed and approved by: Adrián Shah M.D. Radiologist
== END | disposition home or self-care (01) ==
LOC: RADMAMWWP 06:55
PROVIDERS: ATTEND Family Medicine
DX: Z12.31 Encounter for screening mammogram for malignant neoplasm of breast (principal); R92.333 Mammographic heterogeneous density, bilateral breasts; Z78.0 Asymptomatic menopausal state; Z80.3 Family history of malignant neoplasm of breast
CPT/HCPCS: 77063; 77067

== ENCOUNTER → 2024-04-26 | Outpatient (CLI) | payer BC, MEDICARE ==
[2024-04-26 15:43] VITALS: BP 155/95; PULSE 78; RESP 16; TEMP 97.9
--- NOTE | 2024-04-26 16:07 | P.SLEEP ---
History of Present Illness H&P Date: 04/26/24 This is a 63-year-old female patient who was was referred to me for sleep apnea evaluation. The patient was undergoing a knee replacement surgery and postop, she was noted to have excessive snoring and apneas which obviously raise the concern for obstructive sleep apnea. 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 She has to be at work at around 7 AM. She goes to bed at around 8 PM and she gets out of bed at 4:30 AM in the morning during regular weekdays and 530 on weekends. She averages 06 to 7 hours of sleep. She denies to stop breathing at night. She sleeps on her side. Denies having any episodes of choking or gasping for air. She wakes up tired however, she does not have any trouble paying attention, no issues with memory or concentration. She does not fall asleep during the day or while driving. She is not worried about her sleep. Most of anxiety or depression. No restlessness in lower extremities. No sleepwalking or sleep talking. No angina. No palpitation. No grinding. No nocturia. She is currently on Wegovy and she has lost approximately 20 pounds and she is in the process of losing more weight. She does not take any naps during the day. Comorbidities include hypertension and acid reflux. Review of Systems Constitutional: Denies chills, Denies fever Eyes: denies as per HPI, denies blurred vision, denies bulging eye, denies decreased vision, denies diplopia, denies discharge, denies dry eye, denies irritation, denies itching, denies pain, denies photophobia, denies loss of peripheral vision, denies loss of vision, denies tunnel vision/blind spots Ears: deny: decreased hearing, ear discharge, earache, tinnitus Ears, nose, mouth and throat: Reports as per HPI Breasts: absent: as per HPI, change in shape, gynecomastia, masses, nipple discharge, pain, skin changes, swelling Cardiovascular: Reports as per HPI Respiratory: Reports snoring Gastrointestinal: Reports as per HPI Genitourinary: Reports as per HPI Menstruation: Reports as per HPI Musculoskeletal: Reports as per HPI Musculoskeletal: absent: ankle pain, ankle stiffness, ankle swelling, as per HPI, elbow pain, elbow stiffness, elbow swelling, foot pain, foot stiffness, foot swelling, hand pain, hand stiffness, hand swelling, hip pain, hip stiffness, hip swelling, knee pain, knee stiffness, knee swelling, shoulder pain, shoulder stiffness, shoulder swelling, wrist pain, wrist stiffness, wrist swelling Integumentary: Reports as per HPI Neurological: Reports as per HPI Psychiatric: Reports as per HPI Endocrine: Reports as per HPI Hematologic/Lymphatic: Reports as per HPI Allergic/Immunologic: Reports as per HPI Past Medical History Past Medical History: GERD/Reflux, Hearing Disorder / Deafness, Hypertension, Musculoskeletal Disorder, Skin Disorder Additional Past Medical History / Comment(s): STRESS TEST 09/2015 - VALVE HAS SL LEAKAGE. SEASONAL ALLERGY. TINNITUS. SL OA. FOLICULITIS SCALP; ATHLETES'S FOOT; LIPOMA RT UPPER BACK. Pt states that she has been cleared from cardio and that it was just a misread image that led to the stress test. History of Any Multi-Drug Resistant Organisms: None Reported Past Surgical History: Cholecystectomy, Joint Replacement, Tonsillectomy Additional Past Surgical History / Comment(s): RT SHOULDER IMPINGEMENT REPAIR, EXC PART CLAVICLE. right ankle fusion, lipoma removed back, abscess lymph node removed from neck, left knee replacement November 2020. Past Anesthesia/Blood Transfusion Reactions: No Reported Reaction Past Psychological History: No Psychological Hx Reported Additional Psychological History / Comment(s): Pt resides with her spouse and 2 children, one of which is over the age of 18yrs.6 cats, 1 dog She is using walker since recent foot sx Smoking Status: Second hand smoke exposure, Never smoker Past Alcohol Use History: None Reported, Rare Past Drug Use History: None Reported - Past Family History Mother Family Medical History: Cancer Additional Family Medical History / Comment(s): Breast cancer Father Family Medical History: Congestive Heart Failure (CHF), COPD, Osteoarthritis (OA) Medications and Allergies Home Medications Medication Instructions Recorded Confirmed Type Albuterol Sulfate [Albuterol 2 puff PO RT-QID PRN 07/27/23 12/11/23 History Sulfate Hfa] Celecoxib [CeleBREX] 200 mg PO DAILY 07/27/23 04/26/24 History Furosemide [Lasix] 40 mg PO DAILY 07/27/23 04/26/24 History Losartan [Cozaar] 50 mg PO DAILY 07/27/23 04/26/24 History Montelukast [Singulair] 10 mg PO DAILY 07/27/23 04/26/24 History Potassium Chloride ER [K-Dur 10] 10 meq PO DAILY 07/27/23 04/26/24 History Sertraline [Zoloft] 50 mg PO DAILY 07/27/23 04/26/24 History Acetaminophen [Tylenol] 650 mg PO Q4H PRN 12/11/23 12/15/23 History Fluticasone Propionate [Flonase 1 spray EA NOSTRIL DAILY PRN 12/11/23 12/15/23 History Allergy Relief] Pantoprazole [Protonix] 40 mg PO DAILY 12/11/23 04/26/24 History traMADol HCL 50 mg PO Q8H 12/11/23 12/15/23 History Aspirin 325 mg PO BID #60 tab 12/15/23 Rx HYDROcodone/APAP 7.5-325MG [[place] 1 - 2 tab PO Q6H PRN #32 tab 12/15/23 Rx 7.5-325] Ondansetron Odt [Zofran Odt] 1 tab PO Q8HR PRN #10 tab 12/15/23 Rx Sennosides [Senokot] 2 tab PO DAILY PRN #60 tablet 12/15/23 Rx Famotidine [Pepcid] 40 mg PO DAILY 7 Days #7 tablet 01/01/24 Rx Triamcinolone 0.5% Cream [Kenalog 1 applic TOPICAL QID PRN #30 gm 01/01/24 Rx 0.5% Cream] Semaglutide [Wegovy] 1.7 mg SQ WEEKLY 04/26/24 04/26/24 History Allergies Allergy/AdvReac Type Severity Reaction Status Date / Time pilocarpine HCl Allergy Itching Verified 01/01/24 05:45 [From Salagen] bupivacaine HCl AdvReac Swelling Verified 01/01/24 05:45 [From Marcaine] AFTER INJECTION IN KNEE naproxen [From Naprosyn] AdvReac fluid Verified 01/01/24 05:45 retention Physical Exam Vitals: Vital Signs Temp Pulse Resp BP Pulse Ox 04/26/24 15:42 97.9 F 78 16 155/95 97 Intake and Output 04/26/24 04/26/24 04/26/24 06:59 14:59 22:59 Other: Weight 140.614 kg The patient appeared well nourished and normally developed. Vital signs as documented. Head exam is unremarkable. No scleral icterus or corneal arcus noted. Neck is without jugular venous distension, thyromegaly, or carotid bruits. Carotid upstrokes are brisk bilaterally. Mallampati class IV Lungs are clear to auscultation and percussion. Cardiac exam reveals the PMI to be normally sized and situated. Rhythm is regular. First and second heart sounds normal. No murmurs, rubs or gallops. Abdominal exam reveals normal bowel sounds, no masses, no organomegaly and no aortic enlargement. Extremities are nonedematous and both femoral and pedal pulses are normal. Examination of the skin revealed no evidence of significant rashes, suspicious appearing nevi or other concerning lesions. Neurologically, the patient is awake and alert and the patient does not have any focal neurological deficit. Cranial nerves are essentially intact. Assessment and Plan Plan: Loud snoring with witnessed apneas, noted by anesthesiology following her knee replacement surgery. Noted at that time, the patient was under the effect of general anesthesia. The patient currently does not have any major hypersomnia or sleepiness. Her current Aredale score is at 6. Obesity with a BMI of 56.6 and the patient is currently on Wegovy with successful weight loss in order of 20 pounds Currently the posterior pharynx with a Mallampati class IV Osteoarthritis Hypertension Acid reflux Plan The patient does not seem to be somnolent and sleepy and her functionality during routine work hours is very well-preserved. Her current Aredale score is at 6. Despite her snoring history and obesity, and despite the observation it was done by anesthesiology, the overall suspicion for a significant sleep breathing disorder remains low as the patient is not complaining of any excessive daytime sleepiness related to sleep apnea. Another date, the patient is willing to undergo a study to evaluate the presence of sleep apnea and its severity. I am recommending a home sleep study. Will make further recommendations once the sleep study is completed. During this time, the patient will continue efforts in losing weight. She is already on Wegovy and she has successfully lost around 20 pounds. Maintain good sleep hygiene measures. Sleep on the side. Keep the head of the bed elevated. Will continue to follow. No other cardiovascular complications other than hypertension. Sleep Note - Sleep Data ESS Total: 6 - Sleep Note Sleep Note: Temperature: 97.9 F Pulse Rate: 78 Respiratory Rate: 16 Blood Pressure: 155/95 SpO2: 97 Height: 5 ft 2 in Weight: 140.614 kg BMI: Neck Circumference: 16.5
== END ==
LOC: 3 N SLEEP 14:44
PROVIDERS: ATTEND Internal Medicine Critical Care Medicine
CPT/HCPCS: 99211

== ENCOUNTER → 2024-05-20 | Outpatient (CLI) | payer BC, MEDICARE ==
--- NOTE | 2024-05-24 00:48 | P.PCN ---
Date of Procedure: 05/20/24 Operative Findings: Home sleep study report Date of service is 05/20/2024 Pertinent history This is a 63-year-old female patient who was was referred to me for sleep apnea evaluation. The patient was undergoing a knee replacement surgery and postop, she was noted to have excessive snoring and apneas which obviously raise the concern for obstructive sleep apnea. 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 She has to be at work at around 7 AM. She goes to bed at around 8 PM and she gets out of bed at 4:30 AM in the morning during regular weekdays and 530 on weekends. She averages 06 to 7 hours of sleep. She denies to stop breathing at night. She sleeps on her side. Denies having any episodes of choking or gasping for air. She wakes up tired however, she does not have any trouble paying attention, no issues with memory or concentration. She does not fall asleep during the day or while driving. She is not worried about her sleep. Most of anxiety or depression. No restlessness in lower extremities. No sleepwalking or sleep talking. No angina. No palpitation. No grinding. No nocturia. She is currently on Wegovy and she has lost approximately 20 pounds and she is in the process of losing more weight. She does not take any naps during the day. Comorbidities include hypertension and acid reflux. Physical findings The patient has a body mass index of 56.6 with a weight of 310 pounds Technical description The [employer] system was used to complete his home sleep study. The total recording duration was 11 hours and 12 minutes. The study started at 9:25 PM and ended at 8:38 AM. There was a total of 9 hours and 33 minutes of flow evaluation and 10 hours and 50 minutes of oxygen saturation evaluation. Results The respiratory count showed a total of 32 obstructive apneas and 162 obstructive hypopneas. The resulting AHI was 19.2. Oxygenation analysis The patient had nocturnal oxygen desaturations. The baseline pulse ox while awake on room air oxygen was 96%. Average pulse ox during sleep was 91% and the minimum pulse ox was 73% during sleep. The patient spent approximately 1 hour the 90 minutes of sleep time below pulse ox of 89% Cardiac summary Average heart rate was 75 with a minimum heart rate of 41 and a maximum heart rate of 149 Assessment Obstructive sleep apnea, moderate in severity with an AHI of 19.2 Nocturnal oxygen desaturations with a minimum pulse ox of 73% during sleep Loud snoring with witnessed apneas, noted by anesthesiology following her knee replacement surgery. The patient currently does not have any major hypersomnia or sleepiness. Her current Maskell score is at 6. Obesity with a BMI of 56.6 and the patient is currently on Wegovy with successful weight loss in order of 20 pounds Osteoarthritis Hypertension Acid reflux Plan The patient has moderate severe obstructive sleep apnea. The patient does not seem to be somnolent and sleepy and her functionality at work is preserved with an Maskell score of 6. The study confirmed presence of obstructive sleep apnea and nocturnal oxygen desaturations. She is already on Wegovy and she has successfully lost around 20 pounds. Maintain good sleep hygiene measures. Sleep on the side. Keep the head of the bed elevated. The patient may benefit from CPAP therapy. I am going to offer the treatment for her and we will proceed with treatment as long as she is willing to undertake the treatment for the time being as she is continuing her efforts to lose weight. Will continue to follow. No other cardiovascular complications other than hypertension. Obviously, she can proceed with conservative measures and consider CPAP therapy at a later stage once she becomes more symptomatic. Those options will be discussed with the patient and final recommendations will be done. The patient will see him back in office to discuss treatment options.
== END ==
LOC: 3 N SLEEP 12:33
PROVIDERS: ATTEND Internal Medicine Critical Care Medicine
DX: G47.33 Obstructive sleep apnea (adult) (pediatric) (principal); G47.36 Sleep related hypoventilation in conditions classified elsewhere; E66.9 Obesity, unspecified; I10 Essential (primary) hypertension; K21.9 Gastro-esophageal reflux disease without esophagitis; M19.90 Unspecified osteoarthritis, unspecified site; Z68.43 Body mass index [BMI] 50.0-59.9, adult; Z88.8 Allergy status to other drugs, medicaments and biological substances; Z79.899 Other long term (current) drug therapy

== ENCOUNTER → 2025-01-09 | Outpatient (CLI) | payer BC, MEDICARE ==
--- NOTE | 2025-01-09 07:59 | MM ---
Reason for Exam: Screening (asymptomatic). Last screening mammogram was performed 12 month(s) ago. Patient History: Menarche at age 9. Patient has no children. Postmenopausal. 08/17/2018, Benign Core Biopsy on the right side. Mother had breast cancer, age 53. Risk Values: Kelly 5 year model risk: 4.3%. NCI Lifetime model risk: 14.7%. Prior Study Comparison: 08/05/2021 Bilateral Screening Mammogram, [facility]. 09/23/2022 Bilateral MG 3D screening mammo w/cad, [facility]. 01/07/2024 Bilateral MG 3D screening mammo w/cad, [facility]. Tissue Density: There are scattered areas of fibroglandular density. Findings: Analyzed By CAD. There is no suspicious group of microcalcifications or new suspicious mass in either breast. Overall Assessment: Negative, BI-RAD 1 Management: Screening Mammogram of both breasts in 1 year. . Patient should continue monthly self-breast exams. A clinical breast exam by your physician is recommended on an annual basis. This exam should not preclude additional follow-up of suspicious palpable abnormalities. Note on Kelly scores and lifetime risk: 1. A Kelly score greater than 3% is considered moderate risk. If this is the case, consider specialist referral to assess eligibility for a risk reducing agent. 2. If overall lifetime risk for the development of breast cancer is 20% or higher, the patient may qualify for future screening with alternating mammogram and breast MRI. [facility], , 01/09/2025 7:50 AM. Electronically signed and approved by: Jeramie Priest M.D. Radiolog[facility]
== END | disposition home or self-care (01) ==
LOC: RADMAMWWP 07:08
PROVIDERS: ATTEND Family Medicine
DX: Z12.31 Encounter for screening mammogram for malignant neoplasm of breast (principal); R92.323 Mammographic fibroglandular density, bilateral breasts; Z78.0 Asymptomatic menopausal state; Z80.3 Family history of malignant neoplasm of breast
CPT/HCPCS: 77063; 77067